=== PATIENT | male | born 1940 | race Caucasian/White ===

== ENCOUNTER 2018-09-19 12:59 | Emergency (ER) | payer MEDICARE, SELFPAY ==
[2018-09-19 13:04] VITALS: BP 192/99; PULSE 103; RESP 15; TEMP 36.4; O2SAT 98; BMI 29.0
--- NOTE | 2018-09-19 13:07 | PC.NURSE ---
Pt awoke with eyelid redness this morning. States only change is recently sleeping with new puppy. Denies vision changes. Denies trauma to eye. Did not try anything at home to reduce redness.
[2018-09-19 13:39] VITALS: BP 154/85; PULSE 89; RESP 19; O2SAT 99
--- NOTE | 2018-09-19 17:10 | ED_ITS ---
HPI - Eye Problem <GLENNA Webber-BC - Last Filed: 09/19/18 17:10> General Chief complaint: Eye Problems Stated complaint: Rt eye swelling and redness Time Seen by Provider: 09/19/18 13:24 Source: patient Mode of arrival: ambulatory Limitations: no limitations History of Present Illness HPI Narrative: Patient is a 70-year-old male who presents with chief complaint of eye lid redness on his right eye that started this morning. He denies any visual defect, blurry vision, double vision or healing of lights. He denies any fevers, nausea, vomiting, diarrhea. Denies any chest pain or shortness of breath. He wonders if it is because he is sleeping with his new puppy. He has been sleeping with his puppy for 3 weeks. He has not taken anything or flight anything to his eyes. He denies foreign body sensation, scratching or trauma to the eye and denies contact use. Related Data Home Medications Medication Instructions Recorded Confirmed Enalapril Maleate (Vasotec) 20 mg PO BID #0 10/14/08 GlyBURIDE (Diabeta / Micronase) 10 mg PO BID #0 10/14/08 HYDROCHLOROTHIAZIDE (Hydrodiuril / 25 mg PO HS #0 10/14/08 Hctz) Metformin Hydrochloride 1,000 mg PO BID #0 10/14/08 (Glucophage) Allergies Allergy/AdvReac Type Severity Reaction Status Date / Time ibuprofen Allergy Unknown Verified 09/19/18 13:04 Review of Systems <GLENNA Webber-BC - Last Filed: 09/19/18 17:10> Review of Systems GENERAL: Denies chills, fatigue, malaise, fever, sweats. HEENT: See HPI RESPIRATORY: Denies dyspnea, cough, wheezing, hemoptysis, sputum. CARDIOVASCULAR: Denies chest pain, palpitations, orthopnea, edema, GASTROINTESTINAL: Denies nausea, vomiting, abdominal pain, diarrhea, constipation, melena. : Denies dysuria, frequency, incontinence, hematuria, urinary retention. MUSCULOSKELETAL: denies weakness, joint pain, or bony pain SKIN: Denies rash, skin lesions, or other NEUROLOGIC: Denies weakness, headache, numbness, change in speech, confusion, seizures, incoordination. PSYCHIATRIC: No concerning psychosocial issues. 12 point review of systems is negative except for those stated above Exam <GLENNA Webber-BC - Last Filed: 09/19/18 17:10> Narrative Exam Narrative: GENERAL: This is a well-nourished, well-developed patient, in no acute distress HEAD: Atraumatic. Normocephalic. No temporal or scalp tenderness. EYES: Pupils equal round and reactive. Extraocular motions intact. No scleral icterus. No injection or drainage. Hordeolum noted right upper eyelid. No extending erythema rash or trauma. ENT: Nose without bleeding, purulent drainage or septal hematoma. Throat without erythema, tonsillar hypertrophy or exudate. Uvula midline. Airway patent. NECK: Trachea midline. No JVD or lymphadenopathy. Supple, nontender, no meningeal signs. CARDIOVASCULAR: Regular rate and rhythm without murmurs, gallops, or rubs. RESPIRATORY: Clear to auscultation. Breath sounds equal bilaterally. No wheezes , rales, or rhonchi. GASTROINTESTINAL: Abdomen soft, non-tender, nondistended. No hepato-splenomegaly , or palpable masses. No guarding. EXTREMITIES: No clubbing, cyanosis, or edema. No joint tenderness, effusion, or edema noted. BACK: Nontender without deformity or crepitance. No flank tenderness. NEURO: AOx3. SKIN: No rash or erythema. Initial Vital Signs Initial Vital Signs: Vital Signs Temperature 97.5 F L 09/19/18 13:04 Pulse Rate 103 H 09/19/18 13:04 Respiratory Rate 15 09/19/18 13:04 Blood Pressure 192/99 H 09/19/18 13:04 Pulse Oximetry 98 09/19/18 13:04 <Paradise Graham DO - Last Filed: 09/22/18 08:47> Initial Vital Signs Initial Vital Signs: Vital Signs Temperature 97.5 F L 09/19/18 13:04 Pulse Rate 103 H 09/19/18 13:04 Respiratory Rate 15 09/19/18 13:04 Blood Pressure 192/99 H 09/19/18 13:04 Pulse Oximetry 98 09/19/18 13:04 Course <GLENNA Webber-BC - Last Filed: 09/19/18 17:10> Vital Signs - 8 hr 09/19/18 13:04 09/19/18 13:39 Temperature 97.5 F L Pulse Rate 103 H 89 Respiratory Rate 15 19 Blood Pressure 192/99 H 154/85 H Pulse Oximetry 98 99 <Paradise Graham DO - Last Filed: 09/22/18 08:47> Vital Signs - 8 hr 09/19/18 13:04 09/19/18 13:39 Temperature 97.5 F L Pulse Rate 103 H 89 Respiratory Rate 15 19 Blood Pressure 192/99 H 154/85 H Pulse Oximetry 98 99 MDM - Eye Problem <Paraidseibis VitaleGLENNA-BC - Last Filed: 09/19/18 17:10> MDM Narrative Medical decision making narrative: Patient presents with chief complaint of eye concern. He has no red flag concerns of visual defect or eye pain. He has no trauma to the eye. Visual acuity was performed and no deficit was noted. Exam indicates hordeolum. I spoke with the patient at length about warm compresses several times a day. I discussed return precautions of spreading erythema, visual defect or any acute concerns. Patient no questions or concerns upon discharge. Discharge Plan Departure Patient Disposition: Home Clinical Impression: Hordeolum Discharge Date/Time: 09/19/18 13:41 Interventions: ED Discharge Assessment Last Done: 09/19/18 13:39 Instructions: DI for Hordeolum Activity Restrictions/Additional Instructions: I would like you to use warm compresses several times a day for your stye. Please monitor for worsening of redness, spreading of redness or any visual defect or eye pain. Please be evaluated if any of these occur. Usually these clear up after a few days of warm compresses several times a day. Come back to the emergency department if needed and please follow up the primary care provider if necessary. Prescriptions: No Action GlyBURIDE (Diabeta / Micronase) 10 mg PO BID Qty: 0 RF: 0 Enalapril Maleate (Vasotec) 20 mg PO BID Qty: 0 RF: 0 Metformin Hydrochloride (Glucophage) 1,000 mg PO BID Qty: 0 RF: 0 HYDROCHLOROTHIAZIDE (Hydrodiuril / Hctz) 25 mg PO HS Qty: 0 RF: 0 Referrals: Dc Najera MD [Primary Care Provider] - <Paradise Graham DO - Last Filed: 09/22/18 08:47> Cosign ED Attending Cosignature Attestation: I was immediately available in the department for consultation. This documentation has been reviewed and I agree with assessment and plan. Supervised by Paradise Graham, DO
== END 2018-09-19 13:41 | disposition home or self-care (01) ==
PROVIDERS: Emergency Provider Nurse Practitioner Family; Family Provider Family Medicine; PCP Family Medicine
DX: H00.011 Hordeolum externum right upper eyelid (principal)
CPT/HCPCS: 99283

== ENCOUNTER 2019-04-08 20:24 | Inpatient (IN) | payer MEDICARE, SELFPAY ==
[2019-04-08 20:25] VITALS: BP 160/91; PULSE 91; RESP 16; TEMP 36.8; O2SAT 97
--- NOTE | 2019-04-08 20:37 | ED.FALL ---
HPI - Fall General Chief Complaint: Fall Stated Complaint: Fall Down 3 Stairs Time Seen by Provider: 04/08/19 20:30 Source: patient Mode of arrival: EMS Limitations: no limitations History of Present Illness HPI Narrative: The patient was headed up steps at home, he was carrying something his left arm. He has been experiencing poor balance, he fell backward on the 1st 2 steps. He twisted sideways come back. He landed against the structure of the steps, hitting his left chest. There was no head injury or neck injury. He has no confusion the, there was no LOC. He has left rib pain. He has no hemoptysis. He has no anterior chest pain. Initially had left shoulder pain. He moves his left arm and shoulder now. He demonstrates no arm pain. Upper extremities are otherwise atraumatic. He has no back or abdominal pain. He has no lower extremity pain. He has been experiencing weakness in his lower extremities, leading to balance issues. His doctor stopped his statins several weeks ago, that seems to be helping. Related Data Home Medications Medication Instructions Recorded Confirmed glyburide 2.5 mg PO DAILY 04/09/19 04/09/19 hydrochlorothiazide 25 mg PO DAILY 04/09/19 04/09/19 lisinopril 20 mg PO DAILY 04/09/19 04/09/19 metformin 500 mg PO BID 04/09/19 04/09/19 metoprolol tartrate 25 mg PO BID 04/09/19 04/09/19 tamsulosin 0.4 mg PO DAILY 04/09/19 04/09/19 Allergies Allergy/AdvReac Type Severity Reaction Status Date / Time ibuprofen Allergy Unknown Verified 09/19/18 13:04 Review of Systems Review of Systems ROS Unobtainable: All systems reviewed & are unremarkable except as noted in HPI and below Constitutional Denies lethargy and Denies weakness ENT Ears, Nose, Mouth, and Throat: Denies vertigo and Denies dizziness Cardiovascular Reports chest pain (Left lateral chest), Denies irregular heart rhythm, Denies lightheadedness, Denies palpitations, Denies dyspnea and Denies orthopnea Respiratory Denies cough, Denies dyspnea and Denies wheezing Gastrointestinal Gastrointestinal: Denies abdominal pain, Denies change in bowel habits, Denies diarrhea, Denies nausea and Denies vomiting Musculoskeletal Reports as per HPI (Left chest wall pain.) and Denies back pain Comments: No extremity injury. Integumentary/Breasts Denies pruritus, Denies erythema, Denies rash and Denies wounds Neurologic Denies confusion, Denies vertigo, Denies dizziness and Denies weakness Psychiatric Denies anxiety and Denies confusion Endocrine Denies palpitations Hematologic/Lymphatic Denies easy bleeding Allergic/Immunologic Denies wheezing Exam Initial Vital Signs Initial Vital Signs: Vital Signs Temperature 98.3 F 04/08/19 20:25 Pulse Rate 91 H 04/08/19 20:25 Respiratory Rate 16 04/08/19 20:25 Blood Pressure 160/91 H 04/08/19 20:25 Pulse Oximetry 97 04/08/19 20:25 Const General: cooperative and well developed Nutritional Appearance: well nourished Orientation: alert, awake, oriented x3 and not confused [facility] Head: normocephalic and atraumatic Mouth: moist mucous membranes Throat: tonsils normal and uvula midline Eyes General: appearance normal, both eyes and all related structures Eyelids: eyelids normal Conjunctivae: conjunctivae normal Sclera: sclerae normal Pupils: PERRL EOM: EOM intact bilaterally Neck Neck: normal visual inspection, trachea midline, No midline deformity and No JVD Chest Chest: No crepitus and localized rib tenderness with anteroposterior compression (Left lateral chest tenderness with hematoma) Resp Effort & Inspection: normal respiratory effort, able to speak in complete sentences, no respiratory distress and no use of accessory muscles Auscultation: clear to auscultation bilaterally, no rales, no rhonchi and no wheezes Cardio Rate: regular rate Rhythm: regular rhythm Heart Sounds: no click, no gallops, no murmurs and no rubs Pulses: normal peripheral pulses GI Inspection: non-distended Palpation: soft, no hepatosplenomegaly, No guarding and No tender Auscultation: normal bowel sounds Back/Spine/Pelvis Cervical Spine: cervical ROM normal Thoracic/Lumbar Spine: thoracic and lumbar spine normal to inspection Skin General: no rashes or lesions noted and No petechiae Neuro General: alert, oriented x3, gait abnormal and no focal motor deficits Speech: speech normal Extrem General: full ROM, no pedal edema and other (No extremity injury.) Psych Appearance: well kempt Mental Status: mental status grossly normal Attitude: cooperative Thought Content: normal and suicidality Judgment: judgment good [facility] Medical History BPH (benign prostatic hyperplasia) (Acute) Hypertension (Acute) Skin cancer (Acute) Diabetes (Acute) Hyperlipidemia (Acute) Surgical History H/O cataract removal with insertion of prosthetic lens (Acute) No pertinent past surgical history (Acute) Social History household members: spouse and children Smoking Status: Former smoker alcohol intake: current Social History household members: spouse and children Smoking Status: Former smoker alcohol intake: current Course Orders Ordered: ED Orders 04/08/19 20:36 XR ribs LT min 3V w CXR1V Stat 04/08/19 21:36 CT chest wo con Stat 04/08/19 23:40 EKG-12 Lead Stat 04/08/19 23:55 Basic Metabolic Panel Stat Complete Blood Count AUTO DIFF Stat Partial Thromboplastin Time Stat Prothrombin Time INR Stat 04/09/19 08:00 Consult to Physician Routine XR chest 1V Routine Acetaminophen (Tylenol) 1,000 mg PO Q6HR PRN PRN Reason: As Needed for Fever/Mild Pain Gabapentin (Neurontin) 300 mg PO Q6H DMITRIY Last Admin: 04/09/19 01:14 Dose: 300 mg Hydromorphone HCl (Dilaudid) 1 mg IV Q3H PRN PRN Reason: Pain, Severe (7-10) Last Admin: 04/09/19 04:13 Dose: 1 mg Sodium Chloride (Normal Saline 0.9%) 1,000 mls @ 125 mls/hr IV CONT DMITRIY Last Admin: 04/09/19 01:14 Dose: 125 mls/hr Methocarbamol (Robaxin) 750 mg PO QID PRN PRN Reason: Muscle Spasm Discontinued Medications Hydromorphone HCl (Dilaudid) 1 mg IV NOW ONE Stop: 04/08/19 21:37 Last Admin: 04/08/19 21:54 Dose: 1 mg Hydromorphone HCl (Dilaudid) 1 mg IV NOW ONE Stop: 04/08/19 23:04 Last Admin: 04/08/19 23:17 Dose: 1 mg Hydromorphone HCl (Dilaudid) 1 mg IV Q3H PRN PRN Reason: Pain, Severe (7-10) Vital Signs - 8 hr 04/08/19 22:36 04/08/19 23:39 04/09/19 00:30 Temperature 97.3 F L Pulse Rate 95 H 99 H Respiratory Rate 18 18 Blood Pressure 141/84 H Blood Pressure [Right Arm] 147/75 H Pulse Oximetry 97 98 97 MDM - Fall Lab Data Result diagrams: 04/08/19 23:55 04/08/19 23:55 Lab Results 04/08/19 04/08/19 04/08/19 Range/Units 23:55 23:55 23:55 WBC 12.6 H (4.5-11.0) X10^3/uL RBC 3.77 L (4.5-5.9) X10^6/uL Hgb 12.7 L (13.5-17.5) g/dL Hct 37.0 L (41-53) % MCV 98.2 (80-100) fL MCH 33.5 (26-34) PG MCHC 34.2 (30-36) % RDW 12.6 (11.6-14.8) % Plt Count 160 (150-400) X10^3/uL Neut % (Auto) 81.2 H (50-75) % Lymph % (Auto) 9.4 L (25-40) % Moore % (Auto) 8.6 (3-14) % Eos % (Auto) 0.5 L (2-4) % Baso % (Auto) 0.3 (0-2) % Neut # (Auto) 61054 H (7712-7927) /uL Lymph # (Auto) 1200 (9681-2962) /uL Moore # (Auto) 1100 H (0-900) /uL Eos # (Auto) 100 (0-450) /uL Baso # (Auto) 0 (0-100) /uL PT 11.9 (10.1-12.7) SECONDS INR 1.0 (0.9-1.3) APTT 27 (26.4-36.2) SECONDS Sodium 136 L (137-145) mmol/L Potassium 4.7 (3.4-5.1) mmol/L Chloride 98 (98-107) mmol/L Carbon Dioxide 28 (22-32) mmol/L BUN 23 H (9-20) mg/dL Creatinine 0.90 (0.66-1.25) mg/dL Estimated GFR > 60.0 (>60) mL/min BUN/Creatinine Ratio 25.6 H (6-22) Glucose 183 H (80-110) mg/dL Calcium 9.7 (8.4-10.2) mg/dL Imaging Data Chest x-ray: Radiologist's impression: [address] [address] XRay Report Signed Patient: Babak Handley HMR#: [id number] : 1940Acct:[id number] Age/Sex: 78 / MDate of Service: 04/08/19 Loc: ED Accession Number: [id number] Procedure: XR ribs LT min 3V w CXR1V Ordering Provider: Liu Saleem MD PROCEDURE: XR RIBS LT MIN 3V W CXR1V INDICATIONS: Fall. Left rib pain TECHNIQUE: 3 views of the left ribs were acquired, along with a single view chest. COMPARISON: None. FINDINGS: Surgical changes and devices: None. Bones and chest wall: There are mild to moderately displaced fractures of the left 7th through 10th ribs laterally. No suspicious bony lesions. Overlying soft tissues appear unremarkable. Lungs and pleura: There is a suspected small left apical pneumothorax. A small left pleural effusion is demonstrated with associated linear basilar opacities compatible with atelectasis. Right lung is clear. Mediastinum: Mediastinal contours appear normal. Heart size is within normal limits. IMPRESSION: 1. Fractures of the left 7th through 10th ribs. 2. Suspected small left apical pneumothorax. Chest CT is pending. 3. Small left pleural effusion with probable atelectasis in the left base. Findings discussed with Dr. Saleem on 04/08/19 at 9:45 PM. Dictated by: Griffin Franz M.D. on 04/08/2019 at 21:43 Approved by: Griffin Franz M.D. on 04/08/2019 at 21:46 CT scan - chest: Radiologist's impression: Left 7th, 8th, 9th and posterior 10th and 11th rib fractures. The 10th rib fracture is segmental. Crepitus noted on chest CT adjacent to the fracture site. Trace pneumothorax adjacent to the fracture sites. Also noted on the CT is cholelithiasis without inflammatory changes. ECG Data Attestation: I personally reviewed and interpreted this ECG as follows: (Normal sinus rhythm rate 89 beats per minute. Normal intervals. No ectopy. No acute ST wave changes. Normal study.) MDM Narrative Medical decision making narrative: The patient suffered significant injury to the left chest, falling down steps. He has a hematoma at the site, fracture suspected confirmed by x-ray. Multiple rib fractures were further evaluated by chest CT. There is a very small pneumothorax adjacent to the fracture sites. The lungs otherwise intact. He has no toxic, but he does have significant pain. He has required several doses of pain meds while here in the ER. I discussed his ongoing care with the on-call surgeon, . The patient will be admitted to telemetry. Analgesics have been ordered. A repeat x-ray will be done in the morning. Critical Care Time Critical Care Time: Yes Total Critical Care Time: 45 Attestation: Time included initial assessment, review of x-ray then CT, lab review and consultation with surgery. Admission was arranged. Discharge Plan Departure Patient Disposition: Admitted As Inpatient Clinical Impression: Pneumothorax on left Multiple fractures of ribs of left side Qualifiers: Encounter type: initial encounter Fracture type: closed Qualified Code(s): S22.42XA - Multiple fractures of ribs, left side, initial encounter for closed fracture Discharge Date/Time: 04/09/19 00:14 Interventions: ED Discharge Assessment Last Done: 04/09/19 00:14 Admit Date/Time: 04/08/19 23:45 Admit Provider: Gil Alexis
--- NOTE | 2019-04-08 21:36 | DI.CT.S_ITS ---
PROCEDURE: CT CHEST WO CON INDICATIONS: multiple displaced rib fractures TECHNIQUE: Noncontrast 5 mm thick sections acquired from the pulmonary apices to the posterior costophrenic angles. 7 mm thick coronal and sagittal MIP reformats were then acquired. For radiation dose reduction, the following was used: automated exposure control, adjustment of mA and/or kV according patient size. COMPARISON: None. FINDINGS: Image quality: Excellent. Lungs and pleura: Small left pleural effusion measuring higher than fluid attenuation compatible with small hemothorax. Very small left pneumothorax. Minimal compressive atelectasis adjacent to the hemothorax. Otherwise, no acute air space opacities. The right lung is clear. Central and peripheral airways are patent and normal in caliber. Mediastinum: Heart size is normal. Scattered atherosclerotic calcifications of the coronary arteries are noted. No pericardial effusion. No mediastinal adenopathy by size criteria. Thoracic aorta and central pulmonary arteries are normal in size. Esophagus is normal in caliber. Small hiatal hernia. Bones and chest wall: No suspicious bony lesions. No acute vertebral body compression fractures. There are acute, mildly displaced fractures involving the posterior lateral left seventh, eighth, and ninth ribs with posterior fractures of the 10th and 11th ribs. There is segmental fracture of the 10th rib. There is associated subcutaneous emphysema of the posterior lateral left chest wall overlying the rib fractures. No axillary or supraclavicular adenopathy by size criteria. Thyroid gland is unremarkable. Abdomen: Small density in the dependent portion of the gallbladder compatible with cholelithiasis. No CT evidence for acute cholecystitis. Moderate amount of stool in the visualized colon. Visualized upper abdominal solid organs and bowel loops are otherwise unremarkable in the absence of contrast. IMPRESSION: 1. Multiple acute left-sided rib fractures as detailed above involving the seventh through 11th ribs with trace left pneumothorax and small left hemothorax. There is associated left chest wall subcutaneous emphysema. 2. Cholelithiasis without CT evidence for acute cholecystitis. Findings are concordant with preliminary radiology report. Dictated by: Jae Lopez M.D. on 04/09/2019 at 8:19 Approved by: Jae Lopez M.D. on 04/09/2019 at 8:31
[2019-04-08] MEDS: HYDROMORPHONE 1 MG INJ IV ×2 (21:54→23:17)
[2019-04-08 22:36] VITALS: BP 147/75; PULSE 95; RESP 18; O2SAT 97
[2019-04-08 23:39] VITALS: O2SAT 98
[2019-04-09] LABS: Add Manual Diff / Slide Review NO; Basophils Absolute Auto 0 /uL (0-100); Basophils Percent Auto 0.3 % (0-2); Eosinophils Absolute Auto 100 /uL (0-450); Eosinophils Percent Auto 0.5 % (2-4); Hemoglobin 12.7 g/dL (13.5-17.5); Lymphocytes Absolute Auto 1200 /uL (1100-4500); Lymphocytes Percent Auto 9.4 % (25-40); Mean Corpuscular HGB Conc 34.2 % (30-36); Mean Corpuscular Hemoglobin 33.5 PG (26-34); Mean Corpuscular Volume 98.2 fL (80-100); Monocytes Absolute Auto 1100 /uL (0-900); Monocytes Percent Auto 8.6 % (3-14); Neutrophils Absolute Auto 10300 /uL (1500-7000); Neutrophils Percent Auto 81.2 % (50-75); Platelet Count 160 X10^3/uL (150-400); Red Blood Cell Count 3.77 X10^6/uL (4.5-5.9); Red Cell Distribution Width 12.6 % (11.6-14.8); White Blood Cell Count 12.6 X10^3/uL (4.5-11.0)
--- NOTE | 2019-04-09 | DI.RAD.S_ITS ---
PROCEDURE: XR CHEST 1V INDICATIONS: Eval for Left pneumothorax interval change TECHNIQUE: One view of the chest was acquired. COMPARISON: CT dated 04/08/19. FINDINGS: Surgical changes and devices: None. Lungs and pleura: The previously noted trace left pneumothorax is not visualized radiographically. Small left pleural effusion. Right lung remains clear. Mediastinum: Mediastinal contours appear normal. Heart size is normal. Bones and chest wall: Diffuse osteopenia. The known left rib fractures are not well-visualized radiographically and are better evaluated on recent comparison CT. No suspicious bony lesions. Overlying soft tissues appear unremarkable. No substantial subcutaneous emphysema identified in the left chest wall. IMPRESSION: 1. No radiographically evident pneumothorax. 2. Very small left pleural effusion. 3. Multiple acute left-sided rib fractures involving the 7th through 11th ribs are not well visualized radiographically. These are better characterized on comparison CT dated 04/08/19. Dictated by: Jae Lopez M.D. on 04/09/2019 at 9:17 Approved by: Jae Lopez M.D. on 04/09/2019 at 9:21
[2019-04-09 00:11] LABS: Prothrombin Time 11.9 SECONDS (10.1-12.7)
[2019-04-09 00:13] LABS: PTT Partial Thromboplastin Tim 27 SECONDS (26.4-36.2)
[2019-04-09 00:15] LABS: BUN Creatinine Ratio 25.6 (6-22); Blood Urea Nitrogen 23 mg/dL (9-20); Calcium 9.7 mg/dL (8.4-10.2); Carbon Dioxide 28 mmol/L (22-32); Chloride 98 mmol/L (98-107); Estimated Glomerular Filt Rate > 60.0 mL/min (>60); Glucose 183 mg/dL (80-110); HEMOLYSIS < 15 (0-50); Potassium 4.7 mmol/L (3.4-5.1); Sodium 136 mmol/L (137-145)
[2019-04-09 00:30] VITALS: BP 141/84; PULSE 99; RESP 18; TEMP 36.3; O2SAT 97
[2019-04-09 00:33] VITALS: BMI 28.9
[2019-04-09] MEDS: SODIUM CHLORIDE 0.9% 1,000 ML 125 ML IV (01:14)
[2019-04-09] MEDS: GABAPENTIN 300 MG CAPSULE PO ×4 (01:14→22:39)
[2019-04-09] MEDS: HYDROMORPHONE 1 MG INJ IV (04:13)
[2019-04-09 05:58] VITALS: BP 139/71; PULSE 96; RESP 16; TEMP 36.6; O2SAT 100
--- NOTE | 2019-04-09 07:06 | PM.HP.1 ---
History of Present Illness Date Patient Seen: 04/09/19 Time Patient Seen: 05:00 Chief complaint: Fall Down 3 Stairs Narrative: 78 yo man with well managed T2DM, HTN, and 20yrs remote 40 pack/yr smoker with slowly resolving statin related LE weakness and myalgias. Yesterday ~5pm fell backwards while off 2nd or 3rd step climbing up stairs. Had lost director of math on railing. Landed on L lateral chest with immediate pain in area. struck carpeted floor. Did not strike head, no LOC, remembers events clearly, no subsequent head or neck pain. Taken by EMS to ED where in considerable pain - worsened with deep breaths. improved with splinting. On chest CT found to have 5 total segmental rib fractures (7-11 L) multiple displaced. Miniscule ptx. Small amount of dependent hemothorax in posterior sulcus less than 3cm width. He was started on multimodal therapy with APAP, gabapentin, methocarbamol, and hydromorphone. This morning pain much improved feels can now cough effectively, insp 2L on IS, now off O2. Denies other areas of pain beyond L chest, no paresthesias in L hand/arm Patient History Medical History BPH (benign prostatic hyperplasia) (Acute) Hypertension (Acute) Skin cancer (Acute) Diabetes (Acute) Hyperlipidemia (Acute) Surgical History H/O cataract removal with insertion of prosthetic lens (Acute) No pertinent past surgical history (Acute) Social History household members: spouse and children Smoking Status: Former smoker alcohol intake: current Family & Social History Social History: household members spouse,children Prior Living Arrangements House Safety & Behavioral: Feels Safe in Current Yes Environment Suicidal Ideation Description None Suicide Plan Description No Plan Tobacco & Substance use: Smoking Status Former smoker alcohol intake current alcohol intake frequency 0-2 drinks per day Substance Use Type does not use Meds Home Medications Medication Instructions Recorded Confirmed Type Aspirin Low Dose 04/09/19 History glyburide 2.5 mg PO DAILY 04/09/19 04/09/19 History hydrochlorothiazide 25 mg PO DAILY 04/09/19 04/09/19 History lisinopril 20 mg PO DAILY 04/09/19 04/09/19 History metformin 500 mg PO BID 04/09/19 04/09/19 History metoprolol tartrate 25 mg PO BID 04/09/19 04/09/19 History tamsulosin 0.4 mg PO DAILY 04/09/19 04/09/19 History Allergies Allergy/AdvReac Type Severity Reaction Status Date / Time ibuprofen Allergy Unknown Verified 09/19/18 13:04 Review of Systems Constitutional Constitutional: Denies fever(s) Eyes Eyes: Denies bulging eyes ENT Ears, Nose, Mouth, and Throat: No lip swelling Cardiovascular Cardiovascular: Denies generalize swelling Respiratory Respiratory: Denies stridor Gastrointestinal Gastrointestinal: Denies coffee ground emesis Musculoskeletal Musculoskeletal: Denies loss of height Integumentary/Breasts Skin/Breast: Denies wounds Neurologic Neurologic: Denies abnormal speech and Denies confusion Psychiatric Psychiatric: Denies confusion Endocrine Endocrine: Denies deepening of the voice Hematologic/Lymphatic Hematologic/Lymphatic: Denies lymphadenopathy Allergic/Immunologic Allergic/Immunologic: Denies lip swelling Exam Vital Signs (past 8 hours): - 04/08/19 23:39 04/09/19 00:30 04/09/19 05:58 Temperature 97.3 F L 97.9 F Pulse Rate 99 H 96 H Respiratory Rate 18 16 Blood Pressure 141/84 H 139/71 Pulse Oximetry 98 97 100 Oxygen Delivery Method Room Air Narrative Exam Narrative: well oreiented, good cognition head atraumatic, no scalp injury, no head tenderness TMJ non tender, good occlusion, no blood in OC, nares No cervical LAD, nontender, no midline c spine tenderness. full ROM with flex, ext, rotation at neck w/o pain no clavicle tenderness. L lateral chest wall tender with ecchymosis, remainder of chest without tenderness IS 2L, effective cough. LCTAB and equal bilaterally RRR no MGR, nml S1 S2 Abd with diastatis recti, nondisteneded, nml BS, dull to percussion, soft nontender, no masses Pelvis stable to rock No T/L/S spineous process tenderness Full MSK palpation of fingers, hands, wrists, forarms, elbows, arms, shoulders w.o tenderness, No tenderness or pain with ROM of toes, feet, ankle, legs, knees, thighs, hips Objective Labs Result Diagrams: 04/08/19 23:55 04/08/19 23:55 Labs: Laboratory Results - last 24 hr 04/08/19 04/08/19 04/08/19 23:55 23:55 23:55 WBC 12.6 H RBC 3.77 L Hgb 12.7 L Hct 37.0 L MCV 98.2 MCH 33.5 MCHC 34.2 RDW 12.6 Plt Count 160 Neut % (Auto) 81.2 H Lymph % (Auto) 9.4 L [place] % (Auto) 8.6 Eos % (Auto) 0.5 L Baso % (Auto) 0.3 Neut # (Auto) 00206 H Lymph # (Auto) 1200 [place] # (Auto) 1100 H Eos # (Auto) 100 Baso # (Auto) 0 PT 11.9 INR 1.0 APTT 27 Sodium 136 L Potassium 4.7 Chloride 98 Carbon Dioxide 28 BUN 23 H Creatinine 0.90 Estimated GFR > 60.0 BUN/Creatinine Ratio 25.6 H Glucose 183 H Calcium 9.7 Assessment & Plan Assessment & Plan narrative: 78 yo man Post truama day 1 admitted with 5 segmental rib fractures on L with small hemo/pneumothorax 1) Rib fractures x5 - multimodal pain control with scheduled gabapentin/methocarbamol/APAP/celecoxib, PRN opiates - nebs to encourage secretion mobilization - MD aware sating well - IS - mobilize chair most of day 2) small pneumothorax, hemothorax on L - pneumo not detected by CXR, hemothx under 3cm on CT - currently chest tube not indicated - Repeat CXR tomorrow AM, CXR if becomes increasingly symptomatic 3) s/p fall at home - PT to eval today, for gait and strenght training, statin already d/noam 4)DM, HTN - off oral agents on ISS in case of further imaging, basal insulin if consistently above 180 - Hm BB restared with spit dose short acting metoprolol - holding other antihypertensives FEN - LR 50, E ok, diabetic diet Proph - PEG, SQ heparin
--- NOTE | 2019-04-09 07:18 | P.HP_ITS ---
History of Present Illness Date Patient Seen: 04/09/19 Time Patient Seen: 05:00 Chief complaint: Fall Down 3 Stairs Narrative: 78 yo man with well managed T2DM, HTN, and 20yrs remote 40 pack/yr smoker with slowly resolving statin related LE weakness and myalgias. Yesterday ~5pm fell backwards while off 2nd or 3rd step climbing up stairs. Had lost public relations specialist on railing. Landed on L lateral chest with immediate pain in area. struck carpeted floor. Did not strike head, no LOC, remembers events clearly, no subsequent head or neck pain. Taken by EMS to ED where in considerable pain - worsened with deep breaths. improved with splinting. On chest CT found to have 5 total segmental rib fractu res (7-11 L) multiple displaced. Miniscule ptx. Small amount of dependent hemothorax in posterior sulcus less than 3cm width. He was started on multimodal therapy with APAP, gabapentin, methocarbamol, and hydromorphone. This morning pain much improved feels can now cough effectively, insp 2L on IS, now off O2. Denies other areas of pain beyond L chest, no paresthesias in L hand/arm Patient History Medical History BPH (benign prostatic hyperplasia) (Acute) Hypertension (Acute) Skin cancer (Acute) Diabetes (Acute) Hyperlipidemia (Acute) Surgical History H/O cataract removal with insertion of prosthetic lens (Acute) No pertinent past surgical history (Acute) Social History household members: spouse and children Smoking Status: Former smoker alcohol intake: current Family & Social History Social History: household members spouse,children Prior Living Arrangements House Safety & Behavioral: Feels Safe in Current Yes Environment Suicidal Ideation Description None Suicide Plan Description No Plan Tobacco & Substance use: Smoking Status Former smoker alcohol intake current alcohol intake frequency 0-2 drinks per day Substance Use Type does not use Meds Home Medications Medication Instructions Recorded Confirmed Type Aspirin Low Dose 04/09/19 History glyburide 2.5 mg PO DAILY 04/09/19 04/09/19 History hydrochlorothiazide 25 mg PO DAILY 04/09/19 04/09/19 History lisinopril 20 mg PO DAILY 04/09/19 04/09/19 History metformin 500 mg PO BID 04/09/19 04/09/19 History metoprolol tartrate 25 mg PO BID 04/09/19 04/09/19 History tamsulosin 0.4 mg PO DAILY 04/09/19 04/09/19 History Allergies Allergy/AdvReac Type Severity Reaction Status Date / Time ibuprofen Allergy Unknown Verified 09/19/18 13:04 Review of Systems Constitutional Constitutional: Denies fever(s) Eyes Eyes: Denies bulging eyes ENT Ears, Nose, Mouth, and Throat: No lip swelling Cardiovascular Cardiovascular: Denies generalize swelling Respiratory Respiratory: Denies stridor Gastrointestinal Gastrointestinal: Denies coffee ground emesis Musculoskeletal Musculoskeletal: Denies loss of height Integumentary/Breasts Skin/Breast: Denies wounds Neurologic Neurologic: Denies abnormal speech and Denies confusion Psychiatric Psychiatric: Denies confusion Endocrine Endocrine: Denies deepening of the voice Hematologic/Lymphatic Hematologic/Lymphatic: Denies lymphadenopathy Allergic/Immunologic Allergic/Immunologic: Denies lip swelling Exam Vital Signs (past 8 hours): - 04/08/19 23:39 04/09/19 00:30 04/09/19 05:58 Temperature 97.3 F L 97.9 F Pulse Rate 99 H 96 H Respiratory Rate 18 16 Blood Pressure 141/84 H 139/71 Pulse Oximetry 98 97 100 Oxygen Delivery Method Room Air Narrative Exam Narrative: well oreiented, good cognition head atraumatic, no scalp injury, no head tenderness TMJ non tender, good occlusion, no blood in OC, nares No cervical LAD, nontender, no midline c spine tenderness. full ROM with flex, ext, rotation at neck w/o pain no clavicle tenderness. L lateral chest wall tender with ecchymosis, remainder of chest without tenderness IS 2L, effective cough. LCTAB and equal bilaterally RRR no MGR, nml S1 S2 Abd with diastatis recti, nondisteneded, nml BS, dull to percussion, soft nontender, no masses Pelvis stable to rock No T/L/S spineous process tenderness Full MSK palpation of fingers, hands, wrists, forarms, elbows, arms, shoulders w.o tenderness, No tenderness or pain with ROM of toes, feet, ankle, legs, knees, thighs, hips Objective Labs Result Diagrams: 04/08/19 23:55 04/08/19 23:55 Labs: Laboratory Results - last 24 hr 04/08/19 04/08/19 04/08/19 23:55 23:55 23:55 WBC 12.6 H RBC 3.77 L Hgb 12.7 L Hct 37.0 L MCV 98.2 MCH 33.5 MCHC 34.2 RDW 12.6 Plt Count 160 Neut % (Auto) 81.2 H Lymph % (Auto) 9.4 L [place] % (Auto) 8.6 Eos % (Auto) 0.5 L Baso % (Auto) 0.3 Neut # (Auto) 47248 H Lymph # (Auto) 1200 [place] # (Auto) 1100 H Eos # (Auto) 100 Baso # (Auto) 0 PT 11.9 INR 1.0 APTT 27 Sodium 136 L Potassium 4.7 Chloride 98 Carbon Dioxide 28 BUN 23 H Creatinine 0.90 Estimated GFR > 60.0 BUN/Creatinine Ratio 25.6 H Glucose 183 H Calcium 9.7 Assessment & Plan Assessment & Plan narrative: 78 yo man Post truama day 1 admitted with 5 segmental rib fractures on L with small hemo/pneumothorax 1) Rib fractures x5 - multimodal pain control with scheduled analia apentin/methocarbamol/APAP/celecoxib, PRN opiates - nebs to encourage secretion mobilization - MD aware sating well - IS - mobilize chair most of day 2) small pneumothorax, hemothorax on L - pneumo not detected by CXR, hemothx under 3cm on CT - currently chest tube not indicated - Repeat CXR tomorrow AM, CXR if becomes increasingly symptomatic 3) s/p fall at home - PT to eval today, for gait and strenght training, statin already d/noam 4)DM, HTN - off oral agents on ISS in case of further imaging, basal insulin if consistently above 180 - Hm BB restared with spit dose short acting metoprolol - holding other antihypertensives FEN - LR 50, E ok, diabetic diet Proph - PEG, SQ heparin
[2019-04-09 08:00] VITALS: BP 145/75; PULSE 96; RESP 16; TEMP 36.4; O2SAT 97
[2019-04-09] MEDS: LACTATED RINGERS 1,000 ML 50 ML IV (09:53)
[2019-04-09] MEDS: CELECOXIB 200 MG CAPSULE PO ×2 (10:03→20:56)
[2019-04-09] MEDS: ASPIRIN EC 81 MG TABLET PO (10:03)
[2019-04-09] MEDS: METHOCARBAMOL 500 MG TABLET PO ×4 (10:04→20:56)
[2019-04-09] MEDS: POLYETHYLENE GLYCOL 3350 17 GM POWD.PACK PO ×2 (10:04→20:56)
[2019-04-09] MEDS: TAMSULOSIN 0.4 MG CAPSULE PO (10:04)
[2019-04-09] MEDS: OXYCODONE IR 5 MG TABLET PO (10:13)
[2019-04-09] MEDS: INSULIN ASPART 100 UNIT/ML INSULN PEN SUBCUT ×4 (10:14→20:52)
--- NOTE | 2019-04-09 11:17 | PT.IIE ---
Surgical History (Last Reviewed 04/09/19 @ 05:35 by Liu Saleem MD) H/O cataract removal with insertion of prosthetic lens (Acute) No pertinent past surgical history (Acute) Medical History (Last Reviewed 04/09/19 @ 05:35 by Liu Saleem MD) BPH (benign prostatic hyperplasia) (Acute) Hypertension (Acute) Skin cancer (Acute) Diabetes (Acute) Hyperlipidemia (Acute) Physical Therapy Inpatient Evaluation/Re-Eval M1 PT/OT-IP Prior Functional Status Start: 04/09/19 12:07 Freq: NEEDED Status: Active Protocol: Document 04/09/19 11:17 AB (Rec: 04/09/19 12:22 AB [id number]) Medical Review Prior Functional Status Medical History Reviewed Yes Communication able to make needs known Mobility and Gait pt stated that he is modified independent with all mobilities and ambulation without AD but occasionally uses a SPC/walking stick. Social History Household Members spouse children Living Arrangements House Number of Floors (Floors) Two Floors Number of Stairs To Enter/Railing? pt stays on main level of the house has 2 steps to enter with L rail ascending from the front of the house has 2 steps L rail +15 steps L rail to enter the house from the garage Home Environment High Toilet Walk in Shower Home Equipment Straight Cane Grab Bars In Shower Employment Status Copier Operator Employed Additional Social History Comment pt works at [employer] M2 PT-IP Current Condition Start: 04/09/19 12:07 Freq: NEEDED Status: Active Protocol: Document 04/09/19 11:17 AB (Rec: 04/09/19 12:22 AB [id number]) Physical Therapy Current Condition Current Condition Evaluation Date 04/09/19 Treatment Diagnosis s/p fall: L rib 7-10 fx; pneumothorax; difficulty in walking Onset Date 04/08/19 Precautions Other Precautions falls M3 PT-IP Subjective Start: 04/09/19 12:07 Freq: NEEDED Status: Active Protocol: Document 04/09/19 11:17 AB (Rec: 04/09/19 12:22 AB [id number]) Subjective Physical Therapy Visit Type Type Initial Evaluation Visit Start Time 11:17 Visit Stop Time 11:56 Total Visit Minutes 39 Number of BINDING CEMENTER FRENCH CORD Visits 0 Physical Therapy Visit Comments Patient Comments pt agreeable to do PT Therapy Pain Assessment Pain When Pain Assessed During Mobility Pain Present Pain Present Pain Reported Location Left Upper Back Intensity 10 Scale Used Numeric (1 - 10) Pain Management Techniques Timing of Activity with Medications M4 PT-IP Mobility and Gait Start: 04/09/19 12:07 Freq: NEEDED Status: Active Protocol: Document 04/09/19 11:17 AB (Rec: 04/09/19 12:22 AB [id number]) PT-Bed Mobility Assessment Supine to Sit Supine to Sit Standby Assistance Sit to Supine Sit to Supine Standby Assistance PT-Transfer Assessment Sit to and From Stand Sit to and from Stand Standby Assistance Equipment Transfer Assistive Device Gait Belt Front Wheeled Walker Orthotic/Prosthetic Devices or Brace: No Transfers Transfer Destination Bed Transfer Ability Level of Assist Contact Guard Assistance Use of Upper Extremities Comments Mobility Comments pt required cues to complete all tasks. pt sitting on chair and agreed to do PT. completed transfer using FWW to the bed CGA and completed sit to supine SBA. completed supine to sit with difficulty and c/o increase L side pain but able to complete with SBA and cues for techniques. pt requested to be able to brush his teeth. ambulated towards the sink using FWW SBA to CGA and was able to maintain standing against the counter SBA while completing ADL. Gait Assessment Gait Gait Assistance Required: Standby Assistance Contact Guard Assist Distance (Feet) 100 Able to Maintain Weight Bearing Status Yes During Gait Assistive Devices Assistive Device Gait Belt Front Wheeled Walker Orthotic/Prosthetic Devices or Brace: No Gait Deviations General Gait Pattern Antalgic Decreased Stride Length Decreased Feet Clearance Flexed Trunk Factors Limiting Gait Function Factors Limiting Gait Function Decreased Activity Tolerance Decreased Strength Limited Range of Motion Pain Poor Balance Poor Safety Awareness Comments Gait Comments pt presents with antalgic gait with stooped posture. Recommending use of FWW at this time for safety. pt agreed. Stair Climbing Assessment Comments Stair Climbing Comments pt refused to do stairs today; stated that he'll do it tomorrow. PT-Balance Assessment Sitting Balance and Reactions Static Sitting Balance Ability Good Dynamic Sitting Balance Ability Good Standing Balance and Reactions Static Standing Balance Ability Fair Dynamic Standing Balance Ability Fair Device Used FWW M5 PT-IP Objective Assessments Start: 04/09/19 12:07 Freq: NEEDED Status: Active Protocol: Document 04/09/19 11:17 AB (Rec: 04/09/19 12:22 AB [id number]) Orientation Orientation/Cognition Level of Alertness Alert Orientation Name Place Situation Gross Range of Motion Lower Extremity ROM Assessment Within Functional Limits Strength Lower Extremity Strength Assessment Bilaterally Impaired Hip 4-/5 Knee 4-/5 Coordination Assessment Gross Coordination Gross Coordination WNL Sensation Assessment Sensation Gross Sensation WNL Muscle Tone Muscle Tone WNL Yes M6 PT-IP Treatment Start: 04/09/19 12:07 Freq: NEEDED Status: Active Protocol: Document 04/09/19 11:17 AB (Rec: 04/09/19 12:22 AB [id number]) Physical Therapy Treatment Education Education Provided Safety M7 PT-IP Assessment and Plan Start: 04/09/19 12:07 Freq: NEEDED Status: Active Protocol: Document 04/09/19 11:17 AB (Rec: 04/09/19 12:22 AB [id number]) PT Summary Assessment and Plan Potential Rehabilitation Potential Good Status of Condition at Evaluation Stable Summary Impairments Pain ROM Strength Balance Coordination Sensation Tone Cognition Bed Mobility Transfers Gait Activity Tolerance Assessment Summary pt requiring SBA to CGA with mobility. pt plans to go home with spouse to assist him. also has a daughter that lives next to him that can also assist pt. pt presents with unsteady gait and decrease activity tolerance and will require outpt PT to improve strength , standing balance/ tolerance to increase function and prevent falls. Goals Bed Mobility Goal Independent Transfer Goal Independent Front Wheeled Walker Gait Goal Independent Front Wheel Walker Gait Distance 200 Other Goals up/down 2 steps L rail ascending SBA Days to Meet Goals 5 Frequency of Treatment Frequency Of Treatment Once a Day Treatment Plan Physical Therapy Treatment Plan Bed Mobility Training Transfer Training Gait Training Therapeutic Exercise Balance Retraining Discharge Planning Hot or Cold Pack Neuromuscular Re-ed Coordination Retraining Manual Therapy Other Recommendations and Next Treatment ambulation, stair climbing Focus Recommendations To Nursing Amount of Assist Needed 1 Person Assist Discharge Recommendations PT Discharge Recommendations Home with Assistance Outpatient PT Equipment Needed for Home Before FWW: pt will borrow one Discharge
[2019-04-09] MEDS: METOPROLOL IR 25 MG TABLET 12.5 MG PO ×2 (12:08→17:28)
[2019-04-09] MEDS: HEPARIN 5,000 UNIT/ML VIAL 5000 UNIT SUBCUT ×2 (14:27→22:39)
--- NOTE | 2019-04-09 15:29 | CM.SWNOTE ---
DCP: SECURITY OFFICER SUPERVISOR reviewed chart and completed initial d/c plan assessment PCP: Dr. Dc Najera Payor: Medicare SECURITY OFFICER SUPERVISOR met with pt and his dtr to discuss discharge needs and plan. Physical therapy has recommended ongoing physical therapy through Home Health. Pt is agreeable to this plan, and declines the need for any additional disciplines. He declines the need for any additional DME, and dtr obtained a walker for him earlier today. He has notified his employer of his fall and hospitalization, and anticipates being off of work for the next 2-weeks. He expresses having ample support for caregiving through his and dtr. Dtr lives next door to him, and is readily available to assist. This SECURITY OFFICER SUPERVISOR did not initiate calling Home Health at this time. Face to Face not yet signed. No other discharge needs are identified at this time. Discharge Planning/Care Management CM Discharge Assessment Start: 04/09/19 15:15 Freq: Status: Active Protocol: Document 04/09/19 15:15 DPL (Rec: 04/09/19 15:28 DPL [id number]) Discharge Planning Assessment Assigned Head Nurse ISABEL Ellis DPOA/Assigned Designee Name No Advance Directives? No History Provided By Patient Expected Length of Stay 5 Has Patient been admitted in last 30 No days? Prior Living Arrangements House Household Members spouse children Type of transporation used prior to Drives own vehicle admit Independent with ADL's Yes Is patient alert and oriented? Yes Comment Pt is currently needing assistance with safety and mobility. He was able to begin working with PT today to begin ambulating with the use of a front wheeled walker, otherwise, he feels that he will be independent in all his other ADL's. He has both his and dtr to assist with any care needs that he does have when d/c'd home. Caregiver for Another No Comment N/A DME Already Rented / Owned Cane Comment Dtr was able to obtain a walker from a local community agency today. He declines the need for any additional DME needs for d/c. Patient/Family Preference Home with Home Health Comment physical therapist is recommending continued PT in the home once pt is discharged . Pt currently requires SBA with mobility. Due to extensive rib fractures and pain, he has an unsteady gait, and decreased activity tolerance. Goals for community based PT will focus on improving strength, standing/ balance tolerance , and to increase function/prevent falls. Comment Pt has not had Home Health before. SECURITY OFFICER SUPERVISOR explained that Medicare pays for Home Health, and that care management will continue to assist him with coordination of their services prior to his discharge home. He declines the need for any other discipline from HH. Barriers to Discharge Yes Comment Set-up Home Health. Discharge Plan Home Community Services Physical Therapy Transportation Arrangement Family will drive patient home at time of discharge. Referrals Initiated Home Health Additional Comment Ongoing materials planner/production planner will f/u with having the face to face signed, contacting Home Health, and will coordinate with family re: start of care plan. If patient plan is home with home health No : Has signed face to face form been completed? Medicare Choice List Provided No SNF/HH Preference Not identified at this time. Has Agency SNF been contacted No
[2019-04-09 15:32] VITALS: BP 135/72; PULSE 95; RESP 18; TEMP 36.3; O2SAT 96
[2019-04-09 19:34] VITALS: BP 134/75; PULSE 96; RESP 18; TEMP 36.4; O2SAT 97
--- NOTE | 2019-04-09 19:39 | PM.PN.1 ---
Subjective Date Patient Seen: 04/09/19 Time Patient Seen: 19:39 Interval history: Patient post multiple rib fractures and small pneumothorax. He was seen earlier by Dr. Alexis. This evening he is feeling well. Pain is fairly well controlled. He gets increased pain when he takes a really deep breath or coughs. He has been working on deep breathing. Exam Vital Signs (past 8 hours): - 04/09/19 15:32 04/09/19 19:34 Temperature 97.3 F L 97.5 F L Pulse Rate 95 H 96 H Respiratory Rate 18 18 Blood Pressure 135/72 134/75 Pulse Oximetry 96 97 Oxygen Delivery Method Room Air Oxygen Flow Rate 0 Narrative Exam Narrative: Good air movement. Decreased breath sounds on the left compared with the right. Abdomen is protuberant soft nontender without mass Objective Labs Result Diagrams: 04/08/19 23:55 04/08/19 23:55 Labs: Laboratory Results - last 24 hr 04/08/19 04/08/19 04/08/19 23:55 23:55 23:55 WBC 12.6 H RBC 3.77 L Hgb 12.7 L Hct 37.0 L MCV 98.2 MCH 33.5 MCHC 34.2 RDW 12.6 Plt Count 160 Neut % (Auto) 81.2 H Lymph % (Auto) 9.4 L [place] % (Auto) 8.6 Eos % (Auto) 0.5 L Baso % (Auto) 0.3 Neut # (Auto) 49319 H Lymph # (Auto) 1200 [place] # (Auto) 1100 H Eos # (Auto) 100 Baso # (Auto) 0 PT 11.9 INR 1.0 APTT 27 Sodium 136 L Potassium 4.7 Chloride 98 Carbon Dioxide 28 BUN 23 H Creatinine 0.90 Estimated GFR > 60.0 BUN/Creatinine Ratio 25.6 H Glucose 183 H Calcium 9.7 Assessment & Plan Assessment & Plan narrative: Reviewed his x-rays. No evidence of pneumothorax on this morning's x-ray. Will repeat x-rays and labs in the morning. Possible discharge tomorrow.
[2019-04-09 23:00] VITALS: BP 129/71; PULSE 93; RESP 18; TEMP 36.4; O2SAT 98
[2019-04-09 23:23] LABS: Bacteria Urine None Seen; RBC Urine None Seen (0-5/HPF); WBC Urine None Seen (0-5/HPF)
[2019-04-09 23:24] LABS: Appearance Urine UA CLEAR; Bilirubin Urine UA 1+ (NEGATIVE); Color Urine UA YELLOW; Glucose Urine UA 1+ g/dL (Negative); Ketones Urine UA NEGATIVE (NEGATIVE); Leukocyte Esterase Urine UA NEGATIVE (NEGATIVE); Nitrite Urine UA NEGATIVE (Negative); Occult Blood Urine UA NEGATIVE (Negative); Protein Urine UA NEGATIVE (Negative); Specific Gravity Urine UA 1.015 (1.000-1.035); Urobilinogen Urine UA 0.2 E.U./dL (0.2); pH Urine UA 5.5 (4.5-8.0)
[2019-04-10] MEDS: METOPROLOL IR 25 MG TABLET 12.5 MG PO ×2 (00:15→06:01)
[2019-04-10 01:46] LABS: Culture Indicated Urine Cult Not Indicated
[2019-04-10 01:49] LABS: Ictotest Urine Positive (Negative)
[2019-04-10] MEDS: LACTATED RINGERS 1,000 ML 50 ML IV (04:20)
[2019-04-10 06:00] VITALS: BP 139/80; PULSE 86; RESP 16; TEMP 36.3; O2SAT 96
--- NOTE | 2019-04-10 06:00 | DI.RAD.S_ITS ---
PROCEDURE: XR CHEST 1V INDICATIONS: eval for Left pneumothorax TECHNIQUE: One view of the chest was acquired. COMPARISON: [facility], CR, XR CHEST 1V, 04/09/2019, 6:22. [facility], CT, CT CHEST WO CON, 04/08/2019, 21:46. [facility], CR, XR RIBS LT MIN 3V W CXR1V, 04/08/2019, 21:02. FINDINGS: Surgical changes and devices: None. Lungs and pleura: No pneumothorax is seen. There is a trace left-sided pleural effusion. The right lung appears clear. Mediastinum: The cardiac contours are within normal limits. The aorta demonstrates calcification and tortuosity. Bones and chest wall: Mildly displaced left posterior rib fractures are seen, which are better seen on prior CT. No suspicious bony lesions. Age-appropriate bony degenerative changes are seen. There is a small amount of left chest wall subcutaneous emphysema. IMPRESSION: Negative for pneumothorax. Small left-sided pleural effusion. Left posterior rib fractures with left subcutaneous emphysema. Dictated by: Saul Cummings M.D. on 04/10/2019 at 7:05 Approved by: Saul Cummings M.D. on 04/10/2019 at 7:07
[2019-04-10] MEDS: HEPARIN 5,000 UNIT/ML VIAL 5000 UNIT SUBCUT (06:01)
[2019-04-10] MEDS: GABAPENTIN 300 MG CAPSULE PO ×2 (06:01→12:12)
[2019-04-10 06:32] LABS: BUN Creatinine Ratio 22.5 (6-22); Blood Urea Nitrogen 18 mg/dL (9-20); Calcium 8.7 mg/dL (8.4-10.2); Carbon Dioxide 31 mmol/L (22-32); Chloride 99 mmol/L (98-107); Estimated Glomerular Filt Rate > 60.0 mL/min (>60); Glucose 162 mg/dL (80-110); HEMOLYSIS < 15 (0-50); Magnesium 2.1 mg/dL (1.6-2.3); Potassium 4.3 mmol/L (3.4-5.1); Sodium 134 mmol/L (137-145)
[2019-04-10 06:40] LABS: Add Manual Diff / Slide Review NO; Basophils Absolute Auto 0 /uL (0-100); Basophils Percent Auto 0.8 % (0-2); Eosinophils Absolute Auto 200 /uL (0-450); Eosinophils Percent Auto 3.9 % (2-4); Hematocrit 31.9 % (41-53); Hemoglobin 11.1 g/dL (13.5-17.5); Lymphocytes Absolute Auto 1100 /uL (1100-4500); Lymphocytes Percent Auto 20.9 % (25-40); Mean Corpuscular HGB Conc 34.6 % (30-36); Mean Corpuscular Volume 98.2 fL (80-100); Monocytes Absolute Auto 500 /uL (0-900); Monocytes Percent Auto 10.2 % (3-14); Neutrophils Absolute Auto 3400 /uL (1500-7000); Neutrophils Percent Auto 64.2 % (50-75); Platelet Count 124 X10^3/uL (150-400); Red Blood Cell Count 3.25 X10^6/uL (4.5-5.9); Red Cell Distribution Width 12.6 % (11.6-14.8); White Blood Cell Count 5.3 X10^3/uL (4.5-11.0)
[2019-04-10 08:00] VITALS: BP 150/84; PULSE 83; RESP 16; TEMP 36.6; O2SAT 97
[2019-04-10] MEDS: POLYETHYLENE GLYCOL 3350 17 GM POWD.PACK PO (09:13)
[2019-04-10] MEDS: INSULIN ASPART 100 UNIT/ML INSULN PEN SUBCUT ×2 (09:13→12:10)
[2019-04-10] MEDS: METHOCARBAMOL 500 MG TABLET PO ×2 (09:14→12:10)
[2019-04-10] MEDS: TAMSULOSIN 0.4 MG CAPSULE PO (09:15)
[2019-04-10] MEDS: CELECOXIB 200 MG CAPSULE PO (09:15)
[2019-04-10] MEDS: ASPIRIN EC 81 MG TABLET PO (09:15)
--- NOTE | 2019-04-10 09:49 | PT.IPTN ---
Current Diagnoses Multiple fractures of ribs, left side, initial encounter for closed fracture (04/08/19) Physical Therapy Treatment Note M2 PT-IP Current Condition Start: 04/09/19 12:07 Freq: NEEDED Status: Active Protocol: Document 04/09/19 11:17 AB (Rec: 04/09/19 12:22 AB [id number]) Physical Therapy Current Condition Current Condition Evaluation Date 04/09/19 Treatment Diagnosis s/p fall: L rib 7-10 fx; pneumothorax; difficulty in walking Onset Date 04/08/19 Precautions Other Precautions falls M3 PT-IP Subjective Start: 04/09/19 12:07 Freq: NEEDED Status: Active Protocol: Document 04/10/19 09:49 AB (Rec: 04/10/19 11:39 AB [id number]) Subjective Physical Therapy Visit Type Type Treatment Note Visit Start Time 09:49 Visit Stop Time 10:00 Total Visit Minutes 11 Number of ASSISTANT DIRECTOR OF FINANCIAL AID Visits 0 Physical Therapy Visit Comments Patient Comments pt agreeable to do PT Therapy Pain Assessment Pain When Pain Assessed During Mobility Pain Present Pain Present Pain Reported Location Left Upper Back Scale Used pain scale not stated Pain Management Techniques Re-positioning Timing of Activity with Medications M4 PT-IP Mobility and Gait Start: 04/09/19 12:07 Freq: NEEDED Status: Active Protocol: Document 04/10/19 09:49 AB (Rec: 04/10/19 11:39 AB [id number]) PT-Transfer Assessment Sit to and From Stand Sit to and from Stand Standby Assistance 1 Person Assistance Use of Upper Extremities Equipment Transfer Assistive Device Gait Belt Front Wheeled Walker Gait Assessment Gait Gait Assistance Required: Standby Assistance Distance (Feet) 100 Able to Maintain Weight Bearing Status Yes During Gait Assistive Devices Assistive Device Gait Belt Front Wheeled Walker Orthotic/Prosthetic Devices or Brace: No Gait Deviations General Gait Pattern Antalgic Flexed Trunk Factors Limiting Gait Function Factors Limiting Gait Function Decreased Activity Tolerance Decreased Strength Limited Range of Motion Pain Poor Balance Comments Gait Comments pt completed ambulation using FWW 100 ft x 2 SBA and cues for safety. Stair Climbing Assessment Evaluation Level of Assist On Stairs Contact Guard Assistance Devices Stair Climbing Assistive Devices Left Railing Technique/Endurance Stair Climbing Direction Ascend and Descend Stair Climbing Technique Step to Step Number of Steps Climbed 3 Query Text: Stair Climbing Set # Repetitions (reps) 2 M5 PT-IP Objective Assessments Start: 04/09/19 12:07 Freq: NEEDED Status: Active Protocol: Document 04/09/19 11:17 AB (Rec: 04/09/19 12:22 AB [id number]) Orientation Orientation/Cognition Level of Alertness Alert Orientation Name Place Situation Gross Range of Motion Lower Extremity ROM Assessment Within Functional Limits Strength Lower Extremity Strength Assessment Bilaterally Impaired Hip 4-/5 Knee 4-/5 Coordination Assessment Gross Coordination Gross Coordination WNL Sensation Assessment Sensation Gross Sensation WNL Muscle Tone Muscle Tone WNL Yes M6 PT-IP Treatment Start: 04/09/19 12:07 Freq: NEEDED Status: Active Protocol: Document 04/10/19 09:49 AB (Rec: 04/10/19 11:39 AB [id number]) Physical Therapy Treatment Education Education Provided Safety M7 PT-IP Assessment and Plan Start: 04/09/19 12:07 Freq: NEEDED Status: Active Protocol: Document 04/10/19 09:49 AB (Rec: 04/10/19 11:39 AB [id number]) PT Summary Assessment and Plan Potential Rehabilitation Potential Good Summary Impairments Pain ROM Strength Balance Bed Mobility Transfers Gait Activity Tolerance Progress Towards Goals Progressing Toward Goals Assessment Summary pt requiring SBA with mobility and will need a FWW for ambulation at this time. pt stated that his daughter was able to get a FWW for him to use. pt plans to go home with spouse to assist him. pt may go home when medically stable. Goals Bed Mobility Goal Independent Transfer Goal Independent Front Wheeled Walker Gait Goal Independent Front Wheel Walker Gait Distance 200 Other Goals up/down 2 steps L rail ascending SBA Days to Meet Goals 5 Frequency of Treatment Frequency Of Treatment Once a Day Treatment Plan Physical Therapy Treatment Plan Bed Mobility Training Transfer Training Gait Training Therapeutic Exercise Balance Retraining Discharge Planning Hot or Cold Pack Neuromuscular Re-ed Coordination Retraining Manual Therapy Other Recommendations and Next Treatment ambulation, stair climbing Focus Recommendations To Nursing Amount of Assist Needed Standby Assistance Discharge Recommendations PT Discharge Recommendations Home with Assistance Home Health
--- NOTE | 2019-04-10 10:07 | PM.DS.1 ---
History of Present Illness Chief complaint: Fall Down 3 Stairs Discharge Providers Date of admission: 04/08/19 23:45 Discharge Date: 04/10/19 Primary care physician: Dc Najera MD Consults: 04/09/19 06:54 Consult to Physical Therapy Evaluate & Treat Comment: s/p fall at home - gait and strenght training Physician Instructions: Evaluate and Treat 04/09/19 08:00 Consult to Physician Routine Comment: Consulting Provider: Dc Najera Reason for consultation: Primary care physician Discharge provider: Deep Wyatt MD Summary Discharge Diagnosis: Multiple left posterolateral rib fractures nondisplaced. Hospital Course: Patient was admitted 2 days ago with 5 left posterolateral rib fractures which are nondisplaced. Admission chest x-ray revealed a small pneumothorax which has completely resolved. There was also a small effusion which is presumably a small hemo thorax. His hemoglobin has remained stable. Today the patient is feeling very well ambulating with a walker pain is well controlled on oral medication. Patient does not want narcotics at home. Patient is using his incentive spirometer regularly and reaches 2000 cc. Patient will be discharged on Aleve [id number]. Will continue using his incentive spirometer. He will follow up with his medical physician. I have advised taking a stool softener. Patient has a walker at home. Status at Discharge Cognitive/behavioral status at discharge: oriented Functional status at discharge: independent ambulation Overall status at discharge: patient is progressing back to baseline Time Spent with Patient Less than 30 minutes Exam Vital Signs (past 8 hours): - 04/10/19 06:00 04/10/19 08:00 Temperature 97.4 F L 97.9 F Pulse Rate 86 83 Respiratory Rate 16 16 Blood Pressure 139/80 150/84 H Pulse Oximetry 96 97 Oxygen Delivery Method Room Air Oxygen Flow Rate 0 Narrative Exam Narrative: Patient is afebrile. He is alert and oriented. He has minimal complaints of pain. He is walking with the aid of a walker in the hallway. Patient continues to have left posterolateral rib tenderness. Breath sounds are somewhat diminished but are present and sound normal. Objective Labs Result Diagrams: 04/10/19 05:50 04/10/19 05:50 Labs: Laboratory Results - last 24 hr 04/09/19 04/10/19 04/10/19 Unknown 05:50 05:50 WBC 5.3 D RBC 3.25 L Hgb 11.1 L Hct 31.9 L MCV 98.2 MCH 34.0 MCHC 34.6 RDW 12.6 Plt Count 124 L Neut % (Auto) 64.2 Lymph % (Auto) 20.9 L Smith % (Auto) 10.2 Eos % (Auto) 3.9 Baso % (Auto) 0.8 Neut # (Auto) 3400 Lymph # (Auto) 1100 Smith # (Auto) 500 Eos # (Auto) 200 Baso # (Auto) 0 Sodium 134 L Potassium 4.3 Chloride 99 Carbon Dioxide 31 BUN 18 Creatinine 0.80 Estimated GFR > 60.0 BUN/Creatinine Ratio 22.5 H Glucose 162 H Calcium 8.7 Magnesium 2.1 Urine Color Yellow Urine Appearance Clear Urine pH 5.5 Ur Specific [place] 1.015 Urine Protein Negative Urine Glucose (UA) 1+ H Urine Ketones Negative Urine Occult Blood Negative Urine Nitrate Negative Urine Bilirubin 1+ H Urine Ictotest Positive H Urine Urobilinogen 0.2 Ur Leukocyte Esterase Negative Urine RBC None seen Urine WBC None seen Urine Bacteria None seen Ur Culture Indicated? Cult not indicated Discharge Plan Discharge Plan Patient Disposition: Home Discharge comment: follow up with medical doctor as needed Discharge Med Rec/Prescriptions Prescriptions: Continued metformin 500 mg Tablet 500 mg PO BID RF: 0 glyburide 2.5 mg Tablet 2.5 mg PO DAILY RF: 0 lisinopril 20 mg Tablet 20 mg PO DAILY RF: 0 hydrochlorothiazide 25 mg Tablet 25 mg PO DAILY RF: 0 metoprolol tartrate 25 mg Tablet 25 mg PO BID RF: 0 tamsulosin 0.4 mg Capsule 0.4 mg PO DAILY RF: 0 Aspirin Low Dose 81 mg RF: 0 Follow up/Referrals: Dc Najera MD [Primary Care Provider] - Provider Discharge Instructions Diet: Carb-consistent/Diabetic Cold/Heat Therapy: as desired Other treatments: incentive spirometer, aleve as needed for pain,tylenol as needed for pain. take laxative or stool softener Skin/Wound/Dressing Care Report to your healthcare provider any signs of infection, such as:: chills, fever and increased pain Discharge Data Primary Care Provider: Dc Najera Attending Provider: Gil Alexis Admit Date/Time: 04/08/19 23:45
--- NOTE | 2019-04-10 10:31 | P.PN_ITS ---
Subjective Date Patient Seen: 04/10/19 Time Patient Seen: 10:28 Interval history: Patient is hospitalized with 5 left posterior lateral rib fractures after a fall he has been proving daily. Patient states that he is taking deep breaths and using the incentive spirometer regularly. He can get the spirometer up to 2000 cc. He is ambulating with a walker. Exam Vital Signs (past 8 hours): - 04/10/19 06:00 04/10/19 08:00 Temperature 97.4 F L 97.9 F Pulse Rate 86 83 Respiratory Rate 16 16 Blood Pressure 139/80 150/84 H Pulse Oximetry 96 97 Oxygen Delivery Method Room Air Oxygen Flow Rate 0 Narrative Exam Narrative: Patient is afebrile. Of course he still has left-sided rib tenderness. he has somewhat diminished breath sounds left side but audible breath sounds to the apex. Objective Labs Result Diagrams: 04/10/19 05:50 04/10/19 05:50 Labs: Laboratory Results - last 24 hr 04/09/19 04/10/19 04/10/19 Unknown 05:50 05:50 WBC 5.3 D RBC 3.25 L Hgb 11.1 L Hct 31.9 L MCV 98.2 MCH 34.0 MCHC 34.6 RDW 12.6 Plt Count 124 L Neut % (Auto) 64.2 Lymph % (Auto) 20.9 L [place] % (Auto) 10.2 Eos % (Auto) 3.9 Baso % (Auto) 0.8 Neut # (Auto) 3400 Lymph # (Auto) 1100 [place] # (Auto) 500 Eos # (Auto) 200 Baso # (Auto) 0 Sodium 134 L Potassium 4.3 Chloride 99 Carbon Dioxide 31 BUN 18 Creatinine 0.80 Estimated GFR > 60.0 BUN/Creatinine Ratio 22.5 H Glucose 162 H Calcium 8.7 Magnesium 2.1 Urine Color Yellow Urine Appearance Clear Urine pH 5.5 Ur Specific [place] 1.015 Urine Protein Negative Urine Glucose (UA) 1+ H Urine Ketones Negative Urine Occult Blood Negative Urine Nitrate Negative Urine Bilirubin 1+ H Urine Ictotest Positive H Urine Urobilinogen 0.2 Ur Leukocyte Esterase Negative Urine RBC None seen Urine WBC None seen Urine Bacteria None seen Ur Culture Indicated? Cult not indicated Assessment & Plan Assessment & Plan narrative: Chest x-ray this morning reveals no pneumothorax no pneumonia no contusion. He still has a small left-sided pleural effusion. Other structures are unremarkable outside of the fact that he has minimally displaced rib fractures left posterior lateral. Patient would like to go home today. He will resume his pre-admission medications for diabetes and hy pertension. He does not want narcotics at home. He will take Tylenol and Aleve alternate and as needed for pain. patient already has a walker at home. He will follow up with his medical physician. Discharge summary has been prepared.
--- NOTE | 2019-04-10 11:29 | CM.DPC ---
Addendum entered by Jacqui Lovelace R.N. 04/10/19 15:38: Was able to get in touch with Shania at [facility]. Called the main [facility] number. Stated that they received referral, and confirmed that they do take his insurance. Stated with the holiday week-end, may be Friday visit. Had already let patient know that visit could take up to 48 hours. Original Note: DCP Cont: Patient is to be discharged today. Discussed with Dr. Bailey, surgeon. Asked him about home health. He stated, he felt that the patient was getting around ok, but could go ahead and order. Had him sign face to face. Checked in with patient's about home health, and she stated, it's up to [facility]. Discussed with patient, he wants someone to come to the home, but he was getting outpatient mixed up with home health. Patient is home bound at this time, and he stated, if he had to go out he could. Agreed that he could use a couple weeks of someone coming. They have no preference regarding agencies. Went ahead and left [facility] a message and faxed over face sheet, orders, and discharge summary. Let patient know that it could be 48 hours that they could come to the home. He is aware. Had him sign updated IMM form. P: Patient is to be discharged home today with home health. Jacqui Lovelace RN/Rfid Manager
[2019-04-10 12:00] VITALS: BP 134/76; PULSE 99; RESP 16; TEMP 36.4; O2SAT 98
--- NOTE | 2019-04-10 14:15 | PT.IIE ---
Current Diagnoses Multiple fractures of ribs, left side, initial encounter for closed fracture (04/08/19) Surgical History (Last Reviewed 04/09/19 @ 05:35 by Liu Saleem MD) H/O cataract removal with insertion of prosthetic lens (Acute) No pertinent past surgical history (Acute) Medical History (Last Reviewed 04/09/19 @ 05:35 by Liu Saleem MD) BPH (benign prostatic hyperplasia) (Acute) Hypertension (Acute) Skin cancer (Acute) Diabetes (Acute) Hyperlipidemia (Acute) Physical Therapy Inpatient Evaluation/Re-Eval M1 PT/OT-IP Prior Functional Status Start: 04/09/19 12:07 Freq: NEEDED Status: Active Protocol: Document 04/09/19 11:17 AB (Rec: 04/09/19 12:22 AB [id number]) Medical Review Prior Functional Status Medical History Reviewed Yes Communication able to make needs known Mobility and Gait pt stated that he is modified independent with all mobilities and ambulation without AD but occasionally uses a SPC/walking stick. Social History Household Members spouse children Living Arrangements House Number of Floors (Floors) Two Floors Number of Stairs To Enter/Railing? pt stays on main level of the house has 2 steps to enter with L rail ascending from the front of the house has 2 steps L rail +15 steps L rail to enter the house from the garage Home Environment High Toilet Walk in Shower Home Equipment Straight Cane Grab Bars In Shower Employment Status [employer] Employed Additional Social History Comment pt works at [employer] M2 PT-IP Current Condition Start: 04/09/19 12:07 Freq: NEEDED Status: Active Protocol: Document 04/09/19 11:17 AB (Rec: 04/09/19 12:22 AB [id number]) Physical Therapy Current Condition Current Condition Evaluation Date 04/09/19 Treatment Diagnosis s/p fall: L rib 7-10 fx; pneumothorax; difficulty in walking Onset Date 04/08/19 Precautions Other Precautions falls M3 PT-IP Subjective Start: 04/09/19 12:07 Freq: NEEDED Status: Active Protocol: Document 04/10/19 09:49 AB (Rec: 04/10/19 11:39 AB [id number]) Subjective Physical Therapy Visit Type Type Treatment Note Visit Start Time 09:49 Visit Stop Time 10:00 Total Visit Minutes 11 Number of COMMISSION ASSOCIATE Visits 0 Physical Therapy Visit Comments Patient Comments pt agreeable to do PT Therapy Pain Assessment Pain When Pain Assessed During Mobility Pain Present Pain Present Pain Reported Location Left Upper Back Scale Used pain scale not stated Pain Management Techniques Re-positioning Timing of Activity with Medications M4 PT-IP Mobility and Gait Start: 04/09/19 12:07 Freq: NEEDED Status: Active Protocol: Document 04/10/19 09:49 AB (Rec: 04/10/19 11:39 AB [id number]) PT-Transfer Assessment Sit to and From Stand Sit to and from Stand Standby Assistance 1 Person Assistance Use of Upper Extremities Equipment Transfer Assistive Device Gait Belt Front Wheeled Walker Gait Assessment Gait Gait Assistance Required: Standby Assistance Distance (Feet) 100 Able to Maintain Weight Bearing Status Yes During Gait Assistive Devices Assistive Device Gait Belt Front Wheeled Walker Orthotic/Prosthetic Devices or Brace: No Gait Deviations General Gait Pattern Antalgic Flexed Trunk Factors Limiting Gait Function Factors Limiting Gait Function Decreased Activity Tolerance Decreased Strength Limited Range of Motion Pain Poor Balance Comments Gait Comments pt completed ambulation using FWW 100 ft x 2 SBA and cues for safety. Stair Climbing Assessment Evaluation Level of Assist On Stairs Contact Guard Assistance Devices Stair Climbing Assistive Devices Left Railing Technique/Endurance Stair Climbing Direction Ascend and Descend Stair Climbing Technique Step to Step Number of Steps Climbed 3 Query Text: Stair Climbing Set # Repetitions (reps) 2 M5 PT-IP Objective Assessments Start: 04/09/19 12:07 Freq: NEEDED Status: Active Protocol: Document 04/09/19 11:17 AB (Rec: 04/09/19 12:22 AB [id number]) Orientation Orientation/Cognition Level of Alertness Alert Orientation Name Place Situation Gross Range of Motion Lower Extremity ROM Assessment Within Functional Limits Strength Lower Extremity Strength Assessment Bilaterally Impaired Hip 4-/5 Knee 4-/5 Coordination Assessment Gross Coordination Gross Coordination WNL Sensation Assessment Sensation Gross Sensation WNL Muscle Tone Muscle Tone WNL Yes M6 PT-IP Treatment Start: 04/09/19 12:07 Freq: NEEDED Status: Active Protocol: Document 04/10/19 09:49 AB (Rec: 04/10/19 11:39 AB [id number]) Physical Therapy Treatment Education Education Provided Safety M7 PT-IP Assessment and Plan Start: 04/09/19 12:07 Freq: NEEDED Status: Active Protocol: Document 04/10/19 09:49 AB (Rec: 04/10/19 11:39 AB [id number]) PT Summary Assessment and Plan Potential Rehabilitation Potential Good Summary Impairments Pain ROM Strength Balance Bed Mobility Transfers Gait Activity Tolerance Progress Towards Goals Progressing Toward Goals Assessment Summary pt requiring SBA with mobility and will need a FWW for ambulation at this time. pt stated that his daughter was able to get a FWW for him to use. pt plans to go home with spouse to assist him. pt may go home when medically stable. Goals Bed Mobility Goal Independent Transfer Goal Independent Front Wheeled Walker Gait Goal Independent Front Wheel Walker Gait Distance 200 Other Goals up/down 2 steps L rail ascending SBA Days to Meet Goals 5 Frequency of Treatment Frequency Of Treatment Once a Day Treatment Plan Physical Therapy Treatment Plan Bed Mobility Training Transfer Training Gait Training Therapeutic Exercise Balance Retraining Discharge Planning Hot or Cold Pack Neuromuscular Re-ed Coordination Retraining Manual Therapy Other Recommendations and Next Treatment ambulation, stair climbing Focus Recommendations To Nursing Amount of Assist Needed Standby Assistance Discharge Recommendations PT Discharge Recommendations Home with Assistance Home Health
--- NOTE | 2019-04-10 15:43 | PC.NURSE ---
Discharge: Feels ready to d/c home. Denies any sob and sats are in the high 90's average about 97% at rest and when up and amb. Seen by Dr. Wyatt and been given his final d/c instructions. Reviewed his d/c instructions for home. Questions answered. Pt d/c home via auto w/spouse.
== END 2019-04-10 13:30 | disposition home health service (06) | DRG 200 ==
LOC: ED 20:56 → AC 23:46
PROVIDERS: Specialist; Admitting Provider Surgery; Emergency Provider Emergency Medicine; Family Provider Family Medicine; PCP Family Medicine; Visit Provider Surgery
DX: S27.2XXA Traumatic hemopneumothorax, initial encounter (principal); S22.42XA Multiple fractures of ribs, left side, initial encounter for closed fracture; E11.9 Type 2 diabetes mellitus without complications; I10 Essential (primary) hypertension; W10.9XXA Fall (on) (from) unspecified stairs and steps, initial encounter; Z79.84 Long term (current) use of oral hypoglycemic drugs; Z87.891 Personal history of nicotine dependence; Y92.008 Other place in unspecified non-institutional (private) residence as the place of occurrence of the external cause; Z88.4 Allergy status to anesthetic agent
CPT/HCPCS: 36415; 71045; 71101; 71250; 80048; 81001; 82962; 83735; 85025; 85610; 85730; 93005; 93010; 96374; 96376; 97116; 97161; 97530; 99282; 99285; J1170; J1644

== ENCOUNTER → 2019-08-02 11:52 | Outpatient (CLI) | payer MEDICARE, SELFPAY ==
--- NOTE | 2019-08-02 | DI.RAD.S_ITS ---
PROCEDURE: XR CHEST 2V INDICATIONS: DYSPNEA TECHNIQUE: 2 views of the chest were acquired. COMPARISON: [facility], CR, XR CHEST 1V, 04/09/2019, 6:22. [facility], CT, CT CHEST WO CON, 04/08/2019, 21:46. [facility], CR, XR CHEST 1V, 04/10/2019, 5:48. FINDINGS: Surgical changes and devices: None. Lungs and pleura: No pneumothorax. There is a moderate-sized left pleural effusion. There is hazy opacification of the left perihilar region and lower left lung. Mediastinum: Cardiac silhouette is partially obscured by adjacent left basilar pulmonary opacities. Cardiac and mediastinal silhouettes are otherwise within normal limits for size. Bones and chest wall: There are mildly displaced fractures of the left seventh, eighth, and ninth ribs, which appear similar to comparison chest radiograph of 04/10/19. Additional left rib fractures seen on comparison CT of 04/08/19 are less visible on the current exam. Moderate multilevel degenerative changes of the thoracic spine. IMPRESSION: 1. Moderate-sized left pleural effusion with adjacent hazy left lung opacities likely representing atelectasis, increased from comparison exam of 04/10/19. An underlying pneumonia could appear similar and may be obscured. 2. Redemonstrated subacute to chronic displaced left rib fractures, present on comparison chest CT and radiographs of March 2019. Recommend correlation with point tenderness to exclude superimposed acute rib fractures. Dictated by: Bryant Moore M.D. on 08/02/2019 at 14:46 Approved by: Bryant Moore M.D. on 08/02/2019 at 14:52
== END ==
PROVIDERS: PCP Family Medicine; Visit Provider Family Medicine
DX: R06.00 Dyspnea, unspecified (principal); J90 Pleural effusion, not elsewhere classified; S22.42XD Multiple fractures of ribs, left side, subsequent encounter for fracture with routine healing
CPT/HCPCS: 71046

== ENCOUNTER 2019-08-11 09:00 | Outpatient (RCR) | payer MEDICARE, SELFPAY ==
[2019-07-28 14:50] VITALS: BP 132/98
--- NOTE | 2019-07-28 17:06 | PT.OIE ---
Current Diagnoses Type 2 diabetes mellitus with diabetic polyneuropathy (07/28/19) History of falling (07/28/19) Past Medical History (Last Reviewed 04/09/19 @ 05:35 by Liu Saleem MD) BPH (benign prostatic hyperplasia) (Acute) Diabetes (Acute) Hyperlipidemia (Acute) Hypertension (Acute) Skin cancer (Acute) Past Surgical History (Last Reviewed 04/09/19 @ 05:35 by Liu Saleem MD) H/O cataract removal with insertion of prosthetic lens (Acute) No pertinent past surgical history (Acute) Visit Care Team Role Provider Type Dc Najera MD Attending Provider Physician Primary Care Provider Specialty: [facility] Address: [address] [place] [address] [place], [facility] Email: [email or web address] Physical Therapy Initial Evaluation PT-OP-A Visit Information Start: 07/28/19 14:49 Freq: Status: Active Protocol: Document 07/28/19 14:50 AW (Rec: 07/28/19 17:05 AW [email or web address]) Out-Patient Physical Therapy Visit Information Visit Information Visit Type Initial Evaluation Visit Start Time 09:45 Visit Stop Time 10:33 Total Visit Minutes 48 Visit Number 1 Number of MICROARRAY SPECIALIST Visits 0 Evaluation Information Evaluation Date 07/28/19 Precautions Precautions Fall risk secondary to peripheral neuropathy PT-OP-B Current Condition Start: 07/28/19 14:49 Freq: Status: Active Protocol: Document 07/28/19 14:50 AW (Rec: 07/28/19 17:05 AW [email or web address]) Current Condition History of Current Condition Onset Date 2 years Current Complaints recent falls, concerns about balance, bilateral distal LE neuropathy History of Current Condition Bill has a history of falls, diabetes type 2 (controlled medically), peripheral neuropathy, arthritis, and melanoma. He reports 4 falls ( 2 injurious) in the past year. He reports his last fall in March 2019 resulted in several broken ribs and pneumothorax for which he was hospitalized. At that time, PT recommended he use a FWW for all mobility, which he did for ~3 weeks before resorting to a SPC. He now uses the SPC for all community mobility and most household mobility. One year ago, he was able to perform yardwork with no assistive device and little limitation. He is currently unable/fearful to walk on uneven surfaces for fear of falling. Pt lives with his and dog in a townhouse connected to his son's residence. 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 Prior Treatments and Tests Darryl had PT for balance concerns about a year ago and found he improved. Future Testing and Treatments Planned Darryl has an appointment with a neurologist in [place] next Friday to address his neuropathy. Treatment Goals Patient/Caregiver Goals 1. Improve balance and strength 2. Ability to get up from the floor. 3. Use own recumbent bike at home 4. Sleep >1.5 hours without interruption 5. More confidence with walking and carrying a gallon of paint which he does at work Prior Functional Status Baseline Function- ADL's Independent Baseline Function- Mobility Modified Independent Baseline Function- Gait no limitation in distance Baseline Function- Work/School Able to carry gallons of paint in the store, but with recent decreasing confidence. Baseline Function- Recreation/Hobbies Yardwork Current Functional Impairments (Reported) Functional Limitations- ADL's None identified Functional Limitations- Mobility/Gait Balance concerns, 4 falls in the past year. Functional Limitations- Work/School Decreasing confidence in ability to carry objects and walk Functional Limitations- Recreation/ Difficulty/fear of performing Hobbies yard work on uneven surfaces PT-OP-C Subjective Start: 07/28/19 14:49 Freq: Status: Active Protocol: Document 07/28/19 14:50 AW (Rec: 07/28/19 17:05 AW [email or web address]) OP-PT Subjective Patient Comments Patient Comments I just want to get stronger and have better balance. I'd love to be able to get off the floor more easily Patient Questionnaires ABC- Activity Specific Balance Confidence Scale ABC Score 34 ABC Functional Impairment 60 to <80% Impaired (Score 21- 40) OP-PT Pain Assessment Home Pain Medication Use Pain Medications Used No PT-OP-D Balance Start: 07/28/19 14:49 Freq: Status: Active Protocol: Document 07/28/19 14:50 AW (Rec: 07/28/19 17:05 AW [email or web address]) OP-PT Balance Assessment Sitting Balance Static Sitting Balance Ability Good Dynamic Sitting Balance Ability Good Standing Balance Static Standing Balance Ability Fair Dynamic Standing Balance Ability Fair Device Used SPC Banks Fall Scale Copyright Permission PT-OP-E Functional Tests Start: 07/28/19 14:49 Freq: Status: Active Protocol: Document 07/28/19 14:50 AW (Rec: 07/28/19 17:05 AW [email or web address]) Functional Tests Dynamic Gait Index (DGI) Score 15 DGI Impairment Rating 20 to <40% Impaired (Score 15- 19) PT-OP-G Mobility & Gait Start: 07/28/19 14:49 Freq: Status: Active Protocol: Document 07/28/19 14:50 AW (Rec: 07/28/19 17:05 AW [email or web address]) OP Mobility Evaluation Bed Mobility Supine to and from Sit SBA due to pt unease with being on edge of mat Transfers Sit to Stand independent OP Gait Assessment Gait Gait Assistance Required: Standby Assistance Assistive Devices Assistive Device Straight Cane Orthotic/Prosthetic Devices or Brace: No Gait Deviations General Gait Pattern Decreased Stride Length, Decreased Feet Clearance, Flexed Trunk Factors Limiting Gait Function Factors Limiting Gait Function Decreased Sensation,Decreased Strength Comments Gait Comments Pt reports no limitation in gait distance with SPC. Gait is characterized by decreased step length and flexed trunk Stair Climbing Evaluation Evaluation Level of Assist On Stairs Standby Assistance Devices Stair Climbing Assistive Devices Left Railing,Right Railing Technique/Endurance Stair Climbing Direction Ascend and Descend Stair Climbing Technique Step Over Step Number of Steps Climbed 4 Comments Stair Climbing Comments Up/down 4 steps using step over step pattern and bilateral rails to simulate home environment. PT-OP-H Neuro Start: 07/28/19 14:49 Freq: Status: Active Protocol: Document 07/28/19 14:50 AW (Rec: 07/28/19 17:05 AW [email or web address]) Sensation Evaluation Gross Sensation Gross Sensation Left LE Impaired,Right LE Impaired Sensation Description Numbness Location Details Foot Light Touch Impaired Proprioception (Position) Intact/Normal Comments Summary Comments Light touch sensation dull in bilateral feet (stocking distribution). Plantar and dorsal surfaces affected. Joint position sense at ankle and great toe intact. Coordination Evaluation Comments Coordination Comments Bilateral [id number] and finger to therapist finger WNL with no sign of dysmetria Deep Tendon Reflex & Clonus Assessment Deep Tendon Reflex Bilateral Achilles Deep Tendon Reflex 0 Absent Bilateral Patellar Deep Tendon Reflex 1+ Diminished Bilateral Bicep Deep Tendon Reflex 1+ Diminished Ankle Clonus Bilateral Clonus Assessment Absent Vital Signs Blood Pressure Sitting Blood Pressure (90/60-120/80 mmHg) 132/98 H Blood Pressure Source Manual Cuff,Left Upper Extremity PT-OP-K Range of Motion Start: 07/28/19 14:49 Freq: Status: Active Protocol: Document 07/28/19 14:50 AW (Rec: 07/28/19 17:05 AW [email or web address]) Shoulder Goniometric Range of Motion Shoulder ROM Limitations Comments Shoulder AROM WFL Elbow/Forearm Range of Motion Elbow/Forearm ROM Limitations Comments WFL Wrist Goniometric Range of Motion ROM Limitations Comments WFL Hip Goniometric Range of Motion Hip ROM Limitations Comments Bilateral hip AROM WFL Knee Goniometric Range of Motion Knee ROM Limitations Comments WFL Ankle and Foot Goniometric Range of Motion Ankle and Foot ROM Limitations Comments WFL Toe Range of Motion Toes ROM Limitations Comments WFL PT-OP-M Strength Start: 07/28/19 14:49 Freq: Status: Active Protocol: Document 07/28/19 14:50 AW (Rec: 07/28/19 17:05 AW [email or web address]) Shoulder Strength Shoulder Manual Muscle Testing Right Comments Bilateral shoulder strength grossly 5/5 Elbow/Forearm Strength Elbow and Forearm Manual Muscle Testing Right Comments Bilateral elbow strength 5/5 Wrist Strength Wrist Manual Muscle Testing Right Comments Bilateral wrists grossly 5/5 Hip Strength Hip Manual Muscle Testing Right Flexion (L2) 4+ Good+ Extension (S1) 3+ Fair+ Abduction 4- Good- External Rotation 4+ Good+ Internal Rotation 4+ Good+ Left Flexion (L2) 4+ Good+ Extension (S1) 3+ Fair+ Abduction 4- Good- External Rotation 4+ Good+ Internal Rotation 4+ Good+ Knee Strength Knee Manual Muscle Testing Right Flexion (S2) 4 Good Extension (L3) 4 Good Left Flexion (S2) 4 Good Extension (L3) 4 Good Ankle/Foot Strength Ankle and Foot Manual Muscle Testing Right Dorsiflexion (L4) 5 Normal Plantarflexion (S1) 4+ Good+ Left Dorsiflexion (L4) 5 Normal Plantarflexion (S1) 4+ Good+ Toe Strength Toe Manual Muscle Testing Right Great Toe Flexion 5 Normal Extension 5 Normal Left Great Toe Flexion 5 Normal Extension 5 Normal PT-OP-T Assessment and Plan Start: 07/28/19 14:49 Freq: Status: Active Protocol: Document 07/28/19 14:50 AW (Rec: 07/28/19 17:05 AW [email or web address]) Physical Therapy Assessment Rehab Potential Rehabilitation Potential Good Evaluation Complexity Number of Personal Factors/Comorbidities 1-2 Number of Body Systems Impaired 1-2 Clinical Presentation at Evaluation Stable Impairments Impairments Balance,Functional Activities, Functional Mobility,Gait, Posture,Sensation,Strength, Transfers Other Concerns Fall Risk yes Barriers to Rehabilitation None identified Goals 4 Impairment Difficulty carrying gallons of paint while walking at work Short Term Goal (STG) Pt will carry gallon of paint at work with >50% confidence STG Duration 08/25/19 [facility] Goal (LTG) Pt to carry gallon of paint at work with 70% confidence or greater LTG Duration 09/22/19 3 Impairment Pt with great difficulty getting up from the floor Short Term Goal (STG) Pt will verbalize and demonstrate floor recovery techniques up to half-kneeling SBA STG Duration 08/25/19 Director Of Group Counseling Program Goal (LTG) Pt will verbalize and demonstrate floor recovery techniques to full standing position SBA LTG Duration 09/22/19 2 Impairment Pt scored 34 on Activities- Specific Balance Confidence Scale. Short Term Goal (STG) Pt to score 45 on ABC for improved self-efficacy with mobility. STG Duration 08/25/19 Director Of Group Counseling Program Goal (LTG) Pt to score 55 or greater on ABC for improved self-efficacy . LTG Duration 09/22/19 1 Impairment Pt scored 15/24 on DGI. Short Term Goal (STG) Pt to score 19/24 on DGI to demonstrate decreased risk of falls STG Duration 08/25/19 Director Of Group Counseling Program Goal (LTG) Pt to score 22/24 on DGI for decreased risk of falls LTG Duration 09/22/19 Assessment Summary Assessment Darryl is a 78 yo man with history of DM2, peripheral neuropathy, and 4 falls within the past year. He presents to outpatient PT using SPC for most mobility, though he is noticed carrying the cane occasionally and states he likes to have it just in case . Self-efficacy is limited as evidenced by score of 34 on ABC scale. Fall risk is high based on DGI score of 15/24. 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 Light touch sensation is impaired in a stocking distribution. Proprioception tested normal at the ankle and great toe. Further balance testing to be undertaken at next visit. This patient will benefit from skilled physical therapy to address balance and gait impairments for overall reduction in his fall risk. Physical Therapy Plan Frequency and Duration Frequency of Treatment 2x/Week Duration of Treatment 8 weeks Plan of Care Start Date 07/28/19 Plan of Care End Date 09/22/19 Therapeutic Interventions Therapeutic Interventions Aquatic Therapy,Balance Training,Coordination Training ,Gait Training,Home Exercise Program,Joint Mobilizations, Manual Therapy,Neuromuscular Re-education,Patient/Caregiver Education,Self-Care/Home Management,Sensory Integration ,Soft Tissue Mobilization, Taping,Therapeutic Activities, Therapeutic Exercises Modalities Cold Pack/Ice Massage,Electric Stimulation,Hot Packs Next Visit Focus/Plan Next Note Type Treatment Note Next Visit Plan Plan to test TUG and modified TUG (while carrying object in hand). Consider testing mCTSIB for sensory integration related to balance. Handout for patient with HEP focused on balance exercises and LE strengthening
--- NOTE | 2019-08-11 10:17 | PT.OTN ---
Current Diagnoses Type 2 diabetes mellitus with diabetic polyneuropathy (08/11/19) History of falling (08/11/19) Physical Therapy Treatment Note PT-OP-A Visit Information Start: 07/28/19 14:49 Freq: Status: Active Protocol: Document 08/11/19 09:46 AW (Rec: 08/11/19 10:07 AW [email or web address]) Out-Patient Physical Therapy Visit Information Visit Information Visit Type Treatment Note Visit Start Time 08:58 Visit Stop Time 09:45 Total Visit Minutes 47 Visit Number 2 Number of FREIGHT FLAGMAN Visits 0 Precautions Precautions Fall risk secondary to peripheral neuropathy PT-OP-B Current Condition Start: 07/28/19 14:49 Freq: Status: Active Protocol: Document 07/28/19 14:50 AW (Rec: 07/28/19 17:05 AW [email or web address]) Current Condition History of Current Condition Onset Date 2 years Current Complaints recent falls, concerns about balance, bilateral distal LE neuropathy History of Current Condition Darryl has a history of falls, diabetes type 2 (controlled medically), peripheral neuropathy, arthritis, and melanoma. He reports 4 falls ( 2 injurious) in the past year. He reports his last fall in March 2019 resulted in several broken ribs and pneumothorax for which he was hospitalized. At that time, PT recommended he use a FWW for all mobility, which he did for ~3 weeks before resorting to a SPC. He now uses the SPC for all community mobility and most household mobility. One year ago, he was able to perform yardwork with no assistive device and little limitation. He is currently unable/fearful to walk on uneven surfaces for fear of falling. Pt lives with his and dog in a townhouse connected to his son's residence. 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 Prior Treatments and Tests Darryl had PT for balance concerns about a year ago and found he improved. Future Testing and Treatments Planned Darryl has an appointment with a neurologist in [place] next Friday to address his neuropathy. Treatment Goals Patient/Caregiver Goals 1. Improve balance and strength 2. Ability to get up from the floor. 3. Use own recumbent bike at home 4. Sleep >1.5 hours without interruption 5. More confidence with walking and carrying a gallon of paint which he does at work Prior Functional Status Baseline Function- ADL's Independent Baseline Function- Mobility Modified Independent Baseline Function- Gait no limitation in distance Baseline Function- Work/School Able to carry gallons of paint in the store, but with recent decreasing confidence. Baseline Function- Recreation/Hobbies Yardwork Current Functional Impairments (Reported) Functional Limitations- ADL's None identified Functional Limitations- Mobility/Gait Balance concerns, 4 falls in the past year. Functional Limitations- Work/School Decreasing confidence in ability to carry objects and walk Functional Limitations- Recreation/ Difficulty/fear of performing Hobbies yard work on uneven surfaces PT-OP-C Subjective Start: 07/28/19 14:49 Freq: Status: Active Protocol: Document 08/11/19 09:46 AW (Rec: 08/11/19 10:07 AW [email or web address]) OP-PT Subjective Patient Comments Patient Comments Pt is having more shortness of breath lately. Chest x-ray showed a mild left pleural effusion. Dr. Najera is managing that. Pt has had no pain with deep breathing, no fever, no unusual weakness. He has an appointment with a neurologist in [place] on Friday to address neuropathy. Patient Reported Progress Same PT-OP-D Balance Start: 07/28/19 14:49 Freq: Status: Active Protocol: Document 07/28/19 14:50 AW (Rec: 07/28/19 17:05 AW [email or web address]) OP-PT Balance Assessment Sitting Balance Static Sitting Balance Ability Good Dynamic Sitting Balance Ability Good Standing Balance Static Standing Balance Ability Fair Dynamic Standing Balance Ability Fair Device Used SPC Banks Fall Scale Copyright Permission PT-OP-E Functional Tests Start: 07/28/19 14:49 Freq: Status: Active Protocol: Document 07/28/19 14:50 AW (Rec: 07/28/19 17:05 AW [email or web address]) Functional Tests Dynamic Gait Index (DGI) Score 15 DGI Impairment Rating 20 to <40% Impaired (Score 15- 19) PT-OP-G Mobility & Gait Start: 07/28/19 14:49 Freq: Status: Active Protocol: Document 07/28/19 14:50 AW (Rec: 07/28/19 17:05 AW [email or web address]) OP Mobility Evaluation Bed Mobility Supine to and from Sit SBA due to pt unease with being on edge of mat Transfers Sit to Stand independent OP Gait Assessment Gait Gait Assistance Required: Standby Assistance Assistive Devices Assistive Device Straight Cane Orthotic/Prosthetic Devices or Brace: No Gait Deviations General Gait Pattern Decreased Stride Length, Decreased Feet Clearance, Flexed Trunk Factors Limiting Gait Function Factors Limiting Gait Function Decreased Sensation,Decreased Strength Comments Gait Comments Pt reports no limitation in gait distance with SPC. Gait is characterized by decreased step length and flexed trunk Stair Climbing Evaluation Evaluation Level of Assist On Stairs Standby Assistance Devices Stair Climbing Assistive Devices Left Railing,Right Railing Technique/Endurance Stair Climbing Direction Ascend and Descend Stair Climbing Technique Step Over Step Number of Steps Climbed 4 Comments Stair Climbing Comments Up/down 4 steps using step over step pattern and bilateral rails to simulate home environment. PT-OP-H Neuro Start: 07/28/19 14:49 Freq: Status: Active Protocol: Document 07/28/19 14:50 AW (Rec: 07/28/19 17:05 AW [email or web address]) Sensation Evaluation Gross Sensation Gross Sensation Left LE Impaired,Right LE Impaired Sensation Description Numbness Location Details Foot Light Touch Impaired Proprioception (Position) Intact/Normal Comments Summary Comments Light touch sensation dull in bilateral feet (stocking distribution). Plantar and dorsal surfaces affected. Joint position sense at ankle and great toe intact. Coordination Evaluation Comments Coordination Comments Bilateral [id number] and finger to therapist finger WNL with no sign of dysmetria Deep Tendon Reflex & Clonus Assessment Deep Tendon Reflex Bilateral Achilles Deep Tendon Reflex 0 Absent Bilateral Patellar Deep Tendon Reflex 1+ Diminished Bilateral Bicep Deep Tendon Reflex 1+ Diminished Ankle Clonus Bilateral Clonus Assessment Absent Vital Signs Blood Pressure Sitting Blood Pressure (90/60-120/80 mmHg) 132/98 H Blood Pressure Source Manual Cuff,Left Upper Extremity PT-OP-K Range of Motion Start: 07/28/19 14:49 Freq: Status: Active Protocol: Document 07/28/19 14:50 AW (Rec: 07/28/19 17:05 AW [email or web address]) Shoulder Goniometric Range of Motion Shoulder ROM Limitations Comments Shoulder AROM WFL Elbow/Forearm Range of Motion Elbow/Forearm ROM Limitations Comments WFL Wrist Goniometric Range of Motion ROM Limitations Comments WFL Hip Goniometric Range of Motion Hip ROM Limitations Comments Bilateral hip AROM WFL Knee Goniometric Range of Motion Knee ROM Limitations Comments WFL Ankle and Foot Goniometric Range of Motion Ankle and Foot ROM Limitations Comments WFL Toe Range of Motion Toes ROM Limitations Comments WFL PT-OP-M Strength Start: 07/28/19 14:49 Freq: Status: Active Protocol: Document 07/28/19 14:50 AW (Rec: 07/28/19 17:05 AW [email or web address]) Shoulder Strength Shoulder Manual Muscle Testing Right Comments Bilateral shoulder strength grossly 5/5 Elbow/Forearm Strength Elbow and Forearm Manual Muscle Testing Right Comments Bilateral elbow strength 5/5 Wrist Strength Wrist Manual Muscle Testing Right Comments Bilateral wrists grossly 5/5 Hip Strength Hip Manual Muscle Testing Right Flexion (L2) 4+ Good+ Extension (S1) 3+ Fair+ Abduction 4- Good- External Rotation 4+ Good+ Internal Rotation 4+ Good+ Left Flexion (L2) 4+ Good+ Extension (S1) 3+ Fair+ Abduction 4- Good- External Rotation 4+ Good+ Internal Rotation 4+ Good+ Knee Strength Knee Manual Muscle Testing Right Flexion (S2) 4 Good Extension (L3) 4 Good Left Flexion (S2) 4 Good Extension (L3) 4 Good Ankle/Foot Strength Ankle and Foot Manual Muscle Testing Right Dorsiflexion (L4) 5 Normal Plantarflexion (S1) 4+ Good+ Left Dorsiflexion (L4) 5 Normal Plantarflexion (S1) 4+ Good+ Toe Strength Toe Manual Muscle Testing Right Great Toe Flexion 5 Normal Extension 5 Normal Left Great Toe Flexion 5 Normal Extension 5 Normal PT-OP-Q Treatments Start: 07/28/19 14:49 Freq: Status: Active Protocol: Document 08/11/19 09:46 AW (Rec: 08/11/19 10:07 AW [email or web address]) Cardio Equipment Recumbent Elliptical (Biodex) Duration (Minutes) 5 Resistance 1 Seat Position 10 Therapeutic Exercises Standing Exercises 1 Standing Exercise Name resisted side-stepping Side bilateral Resistance yellow band/loop Reps/Minutes 10 ft each direction x 5 Comments seated rest breaks between laps; sent pt home with level 2 band Neuro Re-Education Treatment Balance Activities 4 Details staggered stance Surface level Reps/Duration 5 minutes Comments EO, EC. Pt less steady with left foot forward 3 Details tandem stance Surface level Reps/Duration 1 minute Comments pt required UE support to assume position, which was too challenging; discontinued 2 Details narrow stance on foam Surface foam Equipment 2 blue foam Reps/Duration 3 minutes Comments EO, EC; very challenging with EC 1 Details narrow stance Surface firm Reps/Duration 3 minutes Comments EO, EC, head turns, nods Self-Care/Home Management Treatment Education Patient Education Home Exercise Program Other Education 1. Narrow stance 2. Narrow stance with head turns and nods 3. Side-stepping at countertop with level 2 band PT-OP-T Assessment and Plan Start: 07/28/19 14:49 Freq: Status: Active Protocol: Document 08/11/19 09:46 AW (Rec: 08/11/19 10:07 AW [email or web address]) Physical Therapy Assessment Goals 5 Impairment Pt scores 18.65 on modified TUG (SPC in RUE, cup of water in LUE) Short Term Goal (STG) Pt will score 15 seconds or less on modified TUG to demontrate decreased falls risk/increased confidence with dual task mobility. STG Duration 09/01/19 Alf Goal (LTG) Pt will score 12 seconds or less on modified TUG to demontrate decreased falls risk/increased confidence with dual task mobility. LTG Duration 09/22/19 4 Impairment Difficulty carrying gallons of paint while walking at work Short Term Goal (STG) Pt will carry gallon of paint at work with >50% confidence STG Duration 08/25/19 Alf Goal (LTG) Pt to carry gallon of paint at work with 70% confidence or greater LTG Duration 09/22/19 3 Impairment Pt with great difficulty getting up from the floor Short Term Goal (STG) Pt will verbalize and demonstrate floor recovery techniques up to half-kneeling SBA STG Duration 08/25/19 Thiokol Operator Goal (LTG) Pt will verbalize and demonstrate floor recovery techniques to full standing position SBA LTG Duration 09/22/19 2 Impairment Pt scored 34 on Activities- Specific Balance Confidence Scale. Short Term Goal (STG) Pt to score 45 on ABC for improved self-efficacy with mobility. STG Duration 08/25/19 Alf Goal (LTG) Pt to score 55 or greater on ABC for improved self-efficacy . LTG Duration 09/22/19 1 Impairment Pt scored 15/24 on DGI. Short Term Goal (STG) Pt to score 19/24 on DGI to demonstrate decreased risk of falls STG Duration 08/25/19 Alf Goal (LTG) Pt to score 22/24 on DGI for decreased risk of falls LTG Duration 09/22/19 Progress Towards Goals Progress Towards Goals Slow Progress due to Attendance Issues Progress Comments Pt had to cancel two appointments due to shortness of breath which is being addressed by Dr. Najera Assessment Summary Assessment Pt tolerated ther ex and balance activities well, maintaining SpO2 96-98%. He reported mild SOB at end of cardio exercise which resolved quickly. Pt shows good effort but did require multiple seated rest breaks. He is using his SPC full-time but tends to carry it frequently. His fear of falling contributes to his fall risk. Therapy will focus on increasing Bill's confidence with balance and ambulation to mitigate that risk. Pt scored 17.55 seconds on Timed Up and Go using SPC; 18. 65 seconds on same test using SPC while also carrying a cup of water in his left hand. Scores confirm higher risk of falling. Modified CTSIB: I: 30 seconds II: 3 seconds, 7 seconds, 30 seconds III: 30 seconds IV: 8 seconds, 9 seconds, 3 seconds, 4 seconds Score: 99/120 Physical Therapy Plan Next Visit Focus/Plan Next Visit Plan Review HEP, add balance exercise and hip strengthening exercise. Progress both ther ex and balance activities as tolerated
== END 2019-08-12 12:41 ==
LOC: PHYS 09:00
PROVIDERS: PCP Family Medicine; Visit Provider Family Medicine
DX: E11.42 Type 2 diabetes mellitus with diabetic polyneuropathy (principal); Z91.81 History of falling
CPT/HCPCS: 97110; 97112; 97162

== ENCOUNTER → 2019-08-16 11:51 | Outpatient (CLI) | payer MEDICARE, SELFPAY ==
--- NOTE | 2019-08-16 | DI.RAD.S_ITS ---
PROCEDURE: XR CHEST 2V INDICATIONS: DYSPNEA TECHNIQUE: 2 views of the chest were acquired. COMPARISON: [facility], CR, XR CHEST 2V, 08/02/2019, 11:59. FINDINGS: Surgical changes and devices: None. Lungs and pleura: The large left pleural effusion has increased since the prior study with compressive atelectasis of the left lower lobe. The right lung is grossly clear. Mediastinum: Mediastinal contours are normal. The heart is obscured by subjacent process in the left hemithorax. Bones and chest wall: No suspicious bony abnormalities. Soft tissues appear unremarkable. IMPRESSION: Interval increase in large left pleural effusion with associated compressive atelectasis. Dictated by: Jostin Taylor M.D. on 08/16/2019 at 12:04 Approved by: Jostin Taylor M.D. on 08/16/2019 at 12:06
== END ==
PROVIDERS: PCP Family Medicine; Visit Provider Family Medicine
DX: R06.00 Dyspnea, unspecified (principal); J90 Pleural effusion, not elsewhere classified; J98.11 Atelectasis
CPT/HCPCS: 71046

== ENCOUNTER → 2019-08-19 11:24 | Outpatient (CLI) | payer MEDICARE, SELFPAY ==
--- NOTE | 2019-08-19 11:30 | DI.CT.S_ITS ---
PROCEDURE: CT CHEST WO CON INDICATIONS: Pleural effusion, not elsewhere classified TECHNIQUE: Noncontrast 5 mm thick sections acquired from the pulmonary apices to the posterior costophrenic angles. 1 mm lung window, 5 mm thick coronal and sagittal and 7 mm axial MIP reformats were then acquired. For radiation dose reduction, the following was used: automated exposure control, adjustment of mA and/or kV according to patient size. COMPARISON: [facility], CR, XR CHEST 1V, 04/10/2019, 5:48. [facility], CR, XR CHEST 2V, 08/02/2019, 11:59. [facility], CR, XR CHEST 2V, 08/16/2019, 11:52. [facility], CT, CT CHEST WO CON, 04/08/2019, 21:46. FINDINGS: Image quality: Excellent. Lungs and pleura: Large left pleural effusion with adjacent atelectasis. No pneumothorax. No right pleural fluid identified. The right lung appears clear. Mediastinum: Heart size is normal. Coronary artery calcifications are present. No pericardial effusion. No mediastinal adenopathy by size criteria. Thoracic aorta and central pulmonary arteries are normal in size. Esophagus is normal in caliber. No hiatal hernia. Bones and chest wall: Multiple left rib fractures are grossly unchanged in alignment, although demonstrating interval callus formation. Abdomen: Incidental 4 mm gallstone. There is also punctate gallbladder wall calcification of the fundus. IMPRESSION: Large left pleural effusion with adjacent atelectasis. This is probably unchanged since 08/16/19 however increased over time dating back to more remote studies including 04/08/19 Coronary artery disease. Multiple left rib fractures as before with callus formation. Incidental cholelithiasis. Dictated by: Jean Claude Webster M.D. on 08/19/2019 at 11:51 Approved by: Jean Claude Webster M.D. on 08/19/2019 at 11:57
== END ==
PROVIDERS: PCP Family Medicine; Visit Provider Family Medicine
DX: J90 Pleural effusion, not elsewhere classified (principal); J98.11 Atelectasis; I25.10 Atherosclerotic heart disease of native coronary artery without angina pectoris; K80.20 Calculus of gallbladder without cholecystitis without obstruction
CPT/HCPCS: 71250

== ENCOUNTER → 2019-08-30 07:14 | Outpatient (CLI) | payer MEDICARE, SELFPAY ==
--- NOTE | 2019-08-30 | DI.RAD.S_ITS ---
PROCEDURE: XR CHEST 1V INDICATIONS: Post left thoracentesis. TECHNIQUE: One view of the chest was acquired. COMPARISON: [facility], CR, XR CHEST 2V, 08/16/2019, 11:52. CT chest 08/19/2019. FINDINGS: Surgical changes and devices: None. Lungs and pleura: Left basilar consolidation, decreased. Increased interstitial markings. Moderate size left pleural effusion, decreased. No pleural effusion on the right. No pneumothorax. Mediastinum: Mediastinal contours appear normal. Heart size is normal. Bones and chest wall: No suspicious bony lesions. Multiple left-sided rib fractures. Overlying soft tissues appear unremarkable. IMPRESSION: 1. No pneumothorax post left-sided thoracentesis. 2. Moderate sized residual left pleural effusion. 3. Left lung base consolidation is decreased. Favor compressive atelectasis. Recommend followup to resolution. Dictated by: Gavin Lemos M.D. on 08/30/2019 at 9:15 Approved by: Gavin Lemos M.D. on 08/30/2019 at 9:19
--- NOTE | 2019-08-30 | PATH_ITS ---
Note [facility] Accession Number: [id number] TESTS RESULT FLAG UNITS REF RANGE LAB Clinician Provided Cytology Information No. of containers..01 Other (Miscellaneous) LEFT PLEURAL EFFUSIO DIAGNOSIS: LEFT PLEURAL EFFUSION NEGATIVE FOR MALIGNANT CELLS. Pathologist ICD10: 02 J90 02 Jaziel Esqueda MD, PhD, Pathologist NPI- [id number] Tyler Dickey, Panel Builder ([facility]) 01 60 CC, RED, CLOUDY /LCS 11/16/1840 0000 Local FLAG LEGEND: L-Low Normal,H-High Normal,LL-Alert Low,HH-Alert High <-Panic Low,>-Panic High,A-Abnormal,AA-Critical Abnormal Performed at: 01 =Z [facility] [address], [place] [address] Griffin Gordon MD, 02 [facility] [address] [place] [id number] Taniya Stringer MD, Performed at: 01 [facility] [address], [place], [place] [id number] MD Griffin Gordon MD Phone: [phone]
--- NOTE | 2019-08-30 | DI.US.S_ITS ---
PROCEDURE: US THORACENTESIS INDICATIONS: LARGE LEFT PLEURAL EFFUSION TECHNIQUE: The indications, alternatives, benefits, risks, and complications of the procedure were explained to the patient. Written informed consent was obtained and placed in the chart. The chest was examined sonographically, and an appropriate site was chosen for thoracentesis. The skin was prepared and draped in the usual sterile fashion, and 1% lidocaine was infiltrated from the skin down through the pleural surface. A 19-gauge catheter-covered needle was then introduced into the pleural space, the catheter was advanced and the needle was withdrawn, and thereafter pleural fluid was aspirated. The catheter was then removed and a dressing was applied. COMPARISON: CT chest 08/19/2019. FINDINGS: Access site: Left hemithorax. Needle: One-Step centesis catheter with introducer needle. Fluid volume and description: 2800 cc removed of dark straw-colored pleural fluid. Fluid sent for diagnostic testing: Obtained and sent. Medications: 1% lidocaine for local anaesthesia. Complications: None; post-procedural chest radiograph is pending to assess for pneumothorax. IMPRESSION: Successful ultrasound-guided left thoracentesis. 2.8 L removed of dark straw-colored pleural fluid. Dictated by: Gavin Lemos M.D. on 08/30/2019 at 9:13 Approved by: Gavin Lemos M.D. on 08/30/2019 at 9:15
[2019-08-30 09:44] LABS: Glucose Body Fluid 85 mg/dL; Total Protein Body Fluid 4.9 g/dL
[2019-08-30 10:49] LABS: Body Fluid Appearance HAZY; Body Fluid Clotted? NO CLOTS PRESENT; Body Fluid Color YELLOW
[2019-08-30 10:50] LABS: Mononuclear WBC Body Fluid 95 %; Polynuclear WBC Body Fluid 5 %
[2019-08-30 10:52] LABS: Body Fluid Red Blood Cells 15651 /uL; Body Fluid Tot Nucleated Cells 377 /uL
== END ==
PROVIDERS: PCP Family Medicine; Visit Provider Family Medicine
DX: J90 Pleural effusion, not elsewhere classified (principal)
CPT/HCPCS: 32555; 71045; 82945; 84157; 89051

== ENCOUNTER → 2019-10-15 07:42 | Outpatient (CLI) | payer MEDICARE, SELFPAY ==
[2019-10-15 08:58] LABS: Alanine Aminotransferase 26 IU/L (<50); Albumin 4.5 g/dL (3.5-5.0); Albumin Globulin Ratio 1.3 (1.0-2.8); Alkaline Phosphatase 69 U/L (38-126); Aspartate Aminotransferase 37 IU/L (17-59); Bilirubin Total 1.2 mg/dL (0.2-1.3); Blood Urea Nitrogen 17 mg/dL (9-20); Calcium 9.9 mg/dL (8.4-10.2); Carbon Dioxide 32 mmol/L (22-32); Chloride 97 mmol/L (98-107); Cholesterol 263 mg/dL (140-199); Estimated Glomerular Filt Rate > 60.0 mL/min (>60); Globulin 3.5 g/dL (1.7-4.1); Glucose 137 mg/dL (80-110); HDL Cholesterol 42 mg/dL (40-60); HEMOLYSIS < 15 (0-50); LDL Cholesterol Calculated 179 mg/dL (<100); Potassium 3.9 mmol/L (3.4-5.1); Sodium 138 mmol/L (137-145); Triglycerides 211 mg/dL (35-150); VLDL Cholesterol Calculated 42 mg/dL (2-30)
[2019-10-15 09:07] LABS: Hemoglobin A1C% w Est Avg Glu 5.5 % (4.0-6.0)
[2019-10-15 09:27] LABS: Creatinine Urine Random 94.1 mg/dL
[2019-10-15 09:33] LABS: Microalbumi Creatinin Ratio Ur 28.6 ug/mg CR (<30); Microalbumin Urine Random 2.7 mg/dL (0-1.6)
== END ==
PROVIDERS: PCP Family Medicine; Visit Provider Family Medicine
DX: E11.42 Type 2 diabetes mellitus with diabetic polyneuropathy (principal); E11.319 Type 2 diabetes mellitus with unspecified diabetic retinopathy without macular edema
CPT/HCPCS: 36415; 80053; 80061; 82043; 82570; 83036

== ENCOUNTER 2020-01-11 08:15 | Outpatient (RCR) | payer MEDICARE, SELFPAY ==
--- NOTE | 2019-12-20 12:00 | PT.OIE ---
Current Diagnoses Muscle weakness (generalized) (12/20/19) Other abnormalities of gait and mobility (12/20/19) Unspecified lack of coordination (12/20/19) History of falling (12/20/19) Past Medical History (Last Reviewed 04/09/19 @ 05:35 by Liu Saleem MD) BPH (benign prostatic hyperplasia) (Acute) Diabetes (Acute) Hyperlipidemia (Acute) Hypertension (Acute) Skin cancer (Acute) Past Surgical History (Last Reviewed 04/09/19 @ 05:35 by Liu Saleem MD) H/O cataract removal with insertion of prosthetic lens (Acute) No pertinent past surgical history (Acute) Visit Care Team Role Provider Type Dc Najera MD Attending Provider Physician Primary Care Provider Referring Provider Specialty: [facility] Address: [address] [place] [address], [facility] Email: [email or web address] Physical Therapy Initial Evaluation PT-OP-A Visit Information Start: 12/21/19 09:33 Freq: Status: Active Protocol: Document 12/20/19 11:15 DCW (Rec: 12/21/19 10:14 DC [id number]) Out-Patient Physical Therapy Visit Information Visit Information Visit Type Initial Evaluation Visit Start Time 11:15 Visit Stop Time 12:00 Total Visit Minutes 45 Visit Number 1 Number of CORE ANALYST Visits 0 Evaluation Information Evaluation Date 12/20/19 PT-OP-B Current Condition Start: 12/21/19 09:33 Freq: Status: Active Protocol: Document 12/20/19 11:15 DCW (Rec: 12/21/19 10:14 DC [id number]) Current Condition History of Current Condition Onset Date Multi-year history Current Complaints Hx of falls, neuropathy, imbalance History of Current Condition Pt is a 79 year old male with a multi-year history of peripheral neuropathy. Pt reports his neuropathy has been rapidly worsening, and after meeting with a neurologist recently, they were surprised at the severity of neuropathy, because his DM is so well controlled. Pt ambulates around the community using a SPC, although he often just carries the cane, and just feels better with having it, just in case. Pt reports his goal is to put off using a walker as long as possible. Pt has had two big falls over the past ~year, one where he was going up stairs carrying a grocery bag, which was swinging, pulled him away from the rail, and caused him to fall backward down three steps, breaking five ribs. The second fall occurred when he leaned onto the armrest of a plastic lawn chair, which snapped, causing him to fall and scrape up his face. 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 Prior Treatments and Tests Prior history of PT following hospitalization after his rib fractures. Pt was also briefly seen at this facility last year for two visits, however he stopped attending after the unfortunate unexpected passing of his daughter. Treatment Goals Patient/Caregiver Goals Pt reports that it is pretty much impossible for him to get up off the floor, and he has had increased difficulty even getting out of a chair. Personal Factors Other Personal Factors That May Effect Hx of DM II, peripheral Therapy/Recovery neuropathy, OA, and melanoma PT-OP-C Subjective Start: 12/21/19 09:33 Freq: Status: Active Protocol: Document 12/20/19 11:15 DCW (Rec: 12/21/19 10:14 DCW [id number]) OP-PT Subjective Patient Comments Patient Comments I want to put off using a walker as long as I can. Patient Reported Progress Worse Patient Questionnaires ABC- Activity Specific Balance Confidence Scale ABC Score 70% ABC Functional Impairment 20 to <40% Impaired (Score 61- 80) OP-PT Pain Assessment Pain Assessment Grid Paper Pain Assessment Grid Completed No: N/A PT-OP-D Balance Start: 12/21/19 09:33 Freq: Status: Active Protocol: Document 12/20/19 11:15 DCW (Rec: 12/21/19 10:14 DCW [id number]) OP-PT Balance Assessment Sitting Balance Static Sitting Balance Ability Normal Dynamic Sitting Balance Ability Normal Standing Balance Static Standing Balance Ability Fair Dynamic Standing Balance Ability Fair Balance Tests Steen Balance Test Steen Balance Test Score 41 Steen Impairment Rating 20 to 39% Impaired (Score 34- 44) Steen Balance Assessment Evaluation Sitting to Standing Ability Independent w/out Hands Unsupported Stance Safely- 2 minutes Sitting Unsupported, Feet on Floor Safely- 2 minutes Standing to Sitting Ability Safely, Minimal Hand Use Transfer Ability Safely, Minimal Hand Use Unsupported Stance- Eyes Closed Supervision, 10 seconds Unsupported Stance- Eyes Open Supervision to maintain Reaching Forward Standing Safely, 5 inches Pick- Up Object From Floor Supervision Look Behind Shoulder - Standing Shifts Weight Unilateral Turning 360 Degrees Turns , < 4 secs Unsupported Stance, Alternating Feet on Assist to Prevent Fall Stair Unsupported Tandem Stance Small Step- 30 seconds Unilateral Leg Stance Lifts Leg/Unable to Hold Total Score Steen Total Score (out of 56 points) 41 Steen Impairment Rating 20 to 39% Impaired (Score 34- 44) Banks Fall Scale Copyright Permission PT-OP-E Functional Tests Start: 12/21/19 09:33 Freq: Status: Active Protocol: Document 12/20/19 11:15 DCW (Rec: 12/21/19 10:15 DCW [id number]) Functional Tests Dynamic Gait Index (DGI) Score 15/24 DGI Impairment Rating 20 to <40% Impaired (Score 15- 19) PT-OP-M Strength Start: 12/21/19 09:33 Freq: Status: Active Protocol: Document 12/20/19 11:15 DCW (Rec: 12/21/19 10:14 DCW [id number]) Hip Strength Hip Manual Muscle Testing Right Flexion (L2) 4 Good Abduction 3+ Fair+ Adduction 3- Fair- External Rotation 4- Good- Internal Rotation 4 Good Left Flexion (L2) 4- Good- Abduction 3 Fair Adduction 3- Fair- External Rotation 4+ Good+ Internal Rotation 4 Good Knee Strength Knee Manual Muscle Testing Right Flexion (S2) 4 Good Extension (L3) 5 Normal Left Flexion (S2) 4 Good Extension (L3) 5 Normal Ankle/Foot Strength Ankle and Foot Manual Muscle Testing Right Dorsiflexion (L4) 4- Good- Plantarflexion (S1) 3+ Fair+ Left Dorsiflexion (L4) 4- Good- Plantarflexion (S1) 4 Good PT-OP-T Assessment and Plan Start: 12/21/19 09:33 Freq: Status: Active Protocol: Document 12/20/19 11:15 DCW (Rec: 12/21/19 10:14 DCW [id number]) Physical Therapy Assessment Rehab Potential Rehabilitation Potential Good Evaluation Complexity Number of Personal Factors/Comorbidities 3 or More Number of Body Systems Impaired 3 Clinical Presentation at Evaluation Unstable Impairments Impairments Activity Tolerance,Balance, Functional Mobility,Strength, Transfers Goals 3 Impairment Pt with great difficulty getting up from the floor Short Term Goal (STG) Pt will verbalize and demonstrate floor recovery techniques up to half-kneeling SBA STG Duration 01/18/20 Gun Mechanic Goal (LTG) Pt will verbalize and demonstrate floor recovery techniques to full standing position SBA LTG Duration 02/18/20 2 Impairment Pt scored 41/56 on Steen Balance Scale Short Term Goal (STG) Pt to score 45/56 on Steen to demonstrate decreased falls risk STG Duration 01/31/20 Gun Mechanic Goal (LTG) Pt to score 50/56 on Steen to demonstrate decreased falls risk LTG Duration 03/13/20 1 Impairment Pt scored 15/24 on DGI. Short Term Goal (STG) Pt to score 19/24 on DGI to demonstrate decreased risk of falls STG Duration 01/31/20 Gun Mechanic Goal (LTG) Pt to score 22/24 on DGI for decreased risk of falls LTG Duration 03/13/20 Assessment Summary Assessment Pt presents with decreased static and dynamic balance. Pt is at an increased falls risk per his score on both the Steen Balance scale (41/56) and the Dynamic Gait Index (15/24 ). Pt has difficulty with sit- >stand transfers, and shows weakness in his bilateral lower extremities. Unfortunately, pt's neuropathy is unlikely to improve through physical therapy, however he should still greatly benefit from physical therapy focused on improving his LE strength, practicing hip and ankle strategies, practicing sit->stand and floor->stand transfers, and balance training. Physical Therapy Plan Frequency and Duration Frequency of Treatment 2x/Week Duration of Treatment 12 weeks Plan of Care Start Date 12/20/19 Plan of Care End Date 03/13/20 Therapeutic Interventions Therapeutic Interventions Aquatic Therapy,Balance Training,Coordination Training ,Gait Training,Home Exercise Program,Neuromuscular Re- education,Patient/Caregiver Education,Self-Care/Home Management,Therapeutic Exercises Next Visit Focus/Plan Next Note Type Treatment Note Next Visit Plan May want to perform further balance testing, including TUG , and practicing floor->stand transfers. Also include LE strengthening and balance training
--- NOTE | 2019-12-20 12:00 | PT.OPPOC ---
Physical, Occupational & Speech Therapy At [facility] Current Diagnoses Muscle weakness (generalized) (12/20/19) Other abnormalities of gait and mobility (12/20/19) Unspecified lack of coordination (12/20/19) History of falling (12/20/19) Visit Care Team Role Provider Type Dc Najera MD Attending Provider Physician Primary Care Provider Referring Provider Specialty: [facility] Address: [address] [place] [address] [place], [facility] Email: [email or web address] Plan Of Care PT-OP-T Assessment and Plan Start: 12/21/19 09:33 Freq: Status: Active Protocol: Document 12/20/19 11:15 DCW (Rec: 12/21/19 10:14 DCW [id number]) Physical Therapy Assessment Rehab Potential Rehabilitation Potential Good Evaluation Complexity Number of Personal Factors/Comorbidities 3 or More Number of Body Systems Impaired 3 Clinical Presentation at Evaluation Unstable Impairments Impairments Activity Tolerance,Balance, Functional Mobility,Strength, Transfers Goals 3 Impairment Pt with great difficulty getting up from the floor Short Term Goal (STG) Pt will verbalize and demonstrate floor recovery techniques up to half-kneeling SBA STG Duration 01/18/20 Senior Care Goal (LTG) Pt will verbalize and demonstrate floor recovery techniques to full standing position SBA LTG Duration 02/18/20 2 Impairment Pt scored 41/56 on Steen Balance Scale Short Term Goal (STG) Pt to score 45/56 on Steen to demonstrate decreased falls risk STG Duration 01/31/20 [employer] Operation Goal (LTG) Pt to score 50/56 on Steen to demonstrate decreased falls risk LTG Duration 03/13/20 1 Impairment Pt scored 15/24 on DGI. Short Term Goal (STG) Pt to score 19/24 on DGI to demonstrate decreased risk of falls STG Duration 01/31/20 [employer] Operation Goal (LTG) Pt to score 22/24 on DGI for decreased risk of falls LTG Duration 03/13/20 Assessment Summary Assessment Pt presents with decreased static and dynamic balance. Pt is at an increased falls risk per his score on both the Steen Balance scale (41/56) and the Dynamic Gait Index (15/24 ). Pt has difficulty with sit- >stand transfers, and shows weakness in his bilateral lower extremities. Unfortunately, pt's neuropathy is unlikely to improve through physical therapy, however he should still greatly benefit from physical therapy focused on improving his LE strength, practicing hip and ankle strategies, practicing sit->stand and floor->stand transfers, and balance training. Physical Therapy Plan Frequency and Duration Frequency of Treatment 2x/Week Duration of Treatment 12 weeks Plan of Care Start Date 12/20/19 Plan of Care End Date 03/13/20 Therapeutic Interventions Therapeutic Interventions Aquatic Therapy,Balance Training,Coordination Training ,Gait Training,Home Exercise Program,Neuromuscular Re- education,Patient/Caregiver Education,Self-Care/Home Management,Therapeutic Exercises Next Visit Focus/Plan Next Note Type Treatment Note Next Visit Plan May want to perform further balance testing, including TUG , and practicing floor->stand transfers. Also include LE strengthening and balance training Plan of Care Dates Plan of Care Start Date 12/20/19 Plan of Care End Date 03/13/20 Electronically Signed by: John Osorio, PT 12/21/19 1015 Please Sign and Return: I have reviewed this Plan of Care and certify that the skilled therapy services above are required to meet the patient?s needs. Physician Signature Date Printed Name and Credentials Clinical Instructor Signature Printed Name and Credentials
--- NOTE | 2020-01-05 10:35 | PT.OTN ---
Current Diagnoses Muscle weakness (generalized) (01/05/20) Other abnormalities of gait and mobility (01/05/20) Unspecified lack of coordination (01/05/20) History of falling (01/05/20) Physical Therapy Treatment Note PT-OP-A Visit Information Start: 12/21/19 09:33 Freq: Status: Active Protocol: Document 01/05/20 09:51 SP (Rec: 01/05/20 10:55 SP [id number]) Out-Patient Physical Therapy Visit Information Visit Information Visit Type Treatment Note Visit Start Time 09:51 Visit Stop Time 10:35 Total Visit Minutes 44 Visit Number 2 Number of GROUP SALES COORDINATOR Visits 1 PT-OP-B Current Condition Start: 12/21/19 09:33 Freq: Status: Active Protocol: Document 12/20/19 11:15 DCW (Rec: 12/21/19 10:14 DCW [id number]) Current Condition History of Current Condition Onset Date Multi-year history Current Complaints Hx of falls, neuropathy, imbalance History of Current Condition Pt is a 79 year old male with a multi-year history of peripheral neuropathy. Pt reports his neuropathy has been rapidly worsening, and after meeting with a neurologist recently, they were surprised at the severity of neuropathy, because his DM is so well controlled. Pt ambulates around the community using a SPC, although he often just carries the cane, and just feels better with having it, just in case. Pt reports his goal is to put off using a walker as long as possible. Pt has had two big falls over the past ~year, one where he was going up stairs carrying a grocery bag, which was swinging, pulled him away from the rail, and caused him to fall backward down three steps, breaking five ribs. The second fall occurred when he leaned onto the armrest of a plastic lawn chair, which snapped, causing him to fall and scrape up his face. 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 Prior Treatments and Tests Prior history of PT following hospitalization after his rib fractures. Pt was also briefly seen at this facility last year for two visits, however he stopped attending after the unfortunate unexpected passing of his daughter. Treatment Goals Patient/Caregiver Goals Pt reports that it is pretty much impossible for him to get up off the floor, and he has had increased difficulty even getting out of a chair. Personal Factors Other Personal Factors That May Effect Hx of DM II, peripheral Therapy/Recovery neuropathy, OA, and melanoma PT-OP-C Subjective Start: 12/21/19 09:33 Freq: Status: Active Protocol: Document 01/05/20 09:51 SP (Rec: 01/05/20 10:55 SP [id number]) OP-PT Subjective Patient Comments Patient Comments Pt stated havign 5/10 annoying L posterolateral thigh pain pre PT. Pt stated mostly gets when stands up after sitting a while and noticed more since the wet weather days. Pt states uses SPC at times when tires out longer distances or at work if needed. PT-OP-D Balance Start: 12/21/19 09:33 Freq: Status: Active Protocol: Document 12/20/19 11:15 DCW (Rec: 12/21/19 10:14 DCW [id number]) OP-PT Balance Assessment Sitting Balance Static Sitting Balance Ability Normal Dynamic Sitting Balance Ability Normal Standing Balance Static Standing Balance Ability Fair Dynamic Standing Balance Ability Fair Balance Tests Steen Balance Test Steen Balance Test Score 41 Steen Impairment Rating 20 to 39% Impaired (Score 34- 44) Steen Balance Assessment Evaluation Sitting to Standing Ability Independent w/out Hands Unsupported Stance Safely- 2 minutes Sitting Unsupported, Feet on Floor Safely- 2 minutes Standing to Sitting Ability Safely, Minimal Hand Use Transfer Ability Safely, Minimal Hand Use Unsupported Stance- Eyes Closed Supervision, 10 seconds Unsupported Stance- Eyes Open Supervision to maintain Reaching Forward Standing Safely, 5 inches Pick- Up Object From Floor Supervision Look Behind Shoulder - Standing Shifts Weight Unilateral Turning 360 Degrees Turns , < 4 secs Unsupported Stance, Alternating Feet on Assist to Prevent Fall Stair Unsupported Tandem Stance Small Step- 30 seconds Unilateral Leg Stance Lifts Leg/Unable to Hold Total Score Steen Total Score (out of 56 points) 41 Steen Impairment Rating 20 to 39% Impaired (Score 34- 44) Banks Fall Scale Copyright Permission PT-OP-E Functional Tests Start: 12/21/19 09:33 Freq: Status: Active Protocol: Document 12/20/19 11:15 DCW (Rec: 12/21/19 10:15 DCW [id number]) Functional Tests Dynamic Gait Index (DGI) Score 15/24 DGI Impairment Rating 20 to <40% Impaired (Score 15- 19) PT-OP-M Strength Start: 12/21/19 09:33 Freq: Status: Active Protocol: Document 12/20/19 11:15 DCW (Rec: 12/21/19 10:14 DCW [id number]) Hip Strength Hip Manual Muscle Testing Right Flexion (L2) 4 Good Abduction 3+ Fair+ Adduction 3- Fair- External Rotation 4- Good- Internal Rotation 4 Good Left Flexion (L2) 4- Good- Abduction 3 Fair Adduction 3- Fair- External Rotation 4+ Good+ Internal Rotation 4 Good Knee Strength Knee Manual Muscle Testing Right Flexion (S2) 4 Good Extension (L3) 5 Normal Left Flexion (S2) 4 Good Extension (L3) 5 Normal Ankle/Foot Strength Ankle and Foot Manual Muscle Testing Right Dorsiflexion (L4) 4- Good- Plantarflexion (S1) 3+ Fair+ Left Dorsiflexion (L4) 4- Good- Plantarflexion (S1) 4 Good PT-OP-Q Treatments Start: 12/21/19 09:33 Freq: Status: Active Protocol: Document 01/05/20 09:51 SP (Rec: 01/05/20 10:55 SP [id number]) Cardio Equipment Recumbent Elliptical (Biodex) Duration (Minutes) 4 Resistance 3 Seat Position 7 Recumbent Bicycle Duration (Minutes) 3 Resistance 6 Seat Position 9 Therapeutic Exercises Sitting Exercises Hs stretch Reps/Minutes 60 sec x2 (3 positions) Standing Exercises sit to stands Standing Exercise Name arms across chest Equipment Used 18 chair Reps/Minutes x5 TUG , sit to stand testing Standing Exercise Name sit to stands: 5 reps in 15 sec, TUG 13 sec. 1 Standing Exercise Name resisted side stepping Resistance Tb #2 loop Equipment Used rail contact, cued upright posture Reps/Minutes 20 ft x1 lap Comments add HEP Neuro Re-Education Treatment Balance Activities NBOS, stagger Details add HEP Surface floor Equipment corner back, chair front Reps/Duration 3 sets each up to 30 sec each position Comments NBOS & stagger stance without and with head turns (cued slow pacing turn and look at target to assist stability). PT-OP-T Assessment and Plan Start: 12/21/19 09:33 Freq: Status: Active Protocol: Document 01/05/20 09:51 SP (Rec: 01/05/20 10:55 SP [id number]) Physical Therapy Assessment Goals 5 Impairment Pt scores 18.65 on modified TUG (SPC in RUE, cup of water in LUE) Short Term Goal (STG) Pt will score 15 seconds or less on modified TUG to demontrate decreased falls risk/increased confidence with dual task mobility. STG Duration 09/01/19 Shelter Goal (LTG) Pt will score 12 seconds or less on modified TUG to demontrate decreased falls risk/increased confidence with dual task mobility. LTG Duration 09/22/19 4 Impairment Difficulty carrying gallons of paint while walking at work Short Term Goal (STG) Pt will carry gallon of paint at work with >50% confidence STG Duration 08/25/19 [place] Man Goal (LTG) Pt to carry gallon of paint at work with 70% confidence or greater LTG Duration 09/22/19 3 Impairment Pt with great difficulty getting up from the floor Short Term Goal (STG) Pt will verbalize and demonstrate floor recovery techniques up to half-kneeling SBA STG Duration 01/18/20 [place] Man Goal (LTG) Pt will verbalize and demonstrate floor recovery techniques to full standing position SBA LTG Duration 02/18/20 2 Impairment Pt scored 41/56 on Steen Balance Scale Short Term Goal (STG) Pt to score 45/56 on Steen to demonstrate decreased falls risk STG Duration 01/31/20 Shelter Goal (LTG) Pt to score 50/56 on Steen to demonstrate decreased falls risk LTG Duration 03/13/20 1 Impairment Pt scored 15/24 on DGI. Short Term Goal (STG) Pt to score 19/24 on DGI to demonstrate decreased risk of falls STG Duration 01/31/20 Shelter Goal (LTG) Pt to score 22/24 on DGI for decreased risk of falls LTG Duration 03/13/20 Assessment Summary Assessment Pt tolerated tx well, discussed use of recumbent bike has at home if beneficial to keep, wants it to go . GROUP SALES COORDINATOR/ PT stated it is cardio but can up resistance with slower pacing for strengthening benefits. Tx assessed baseline TUG and 5 rep sit to stand testing and bike warm up and added new HEP : sit to stands, band walk, tandem/stagger stance and HS stretching to assist progress in flexibility of HS tightness , strength and balance self application outside of PT. HS stretch feels good end of tx and feels little better, theses activities seem like a good start. Physical Therapy Plan Frequency and Duration Frequency of Treatment 2x/Week Duration of Treatment 12 weeks Plan of Care Start Date 12/20/19 Plan of Care End Date 03/13/20 Therapeutic Interventions Therapeutic Interventions Aquatic Therapy,Balance Training,Coordination Training ,Gait Training,Home Exercise Program,Neuromuscular Re- education,Patient/Caregiver Education,Self-Care/Home Management,Therapeutic Exercises Next Visit Focus/Plan Next Note Type Treatment Note Next Visit Plan Assess resonse to last tx: TUG testing, sit to stand testing and added HEP: tandem/stagger stance, sit to stands, band walk and HS stretching. Next tx add: supine SLR, side abd, step ups/downs to HEP and brunilda stepping to PT treatment. Continue per PT POC: practicing floor->stand transfers. Also include LE strengthening and balance training
--- NOTE | 2020-01-11 09:03 | PT.OTN ---
Current Diagnoses Muscle weakness (generalized) (01/11/20) Other abnormalities of gait and mobility (01/11/20) Unspecified lack of coordination (01/11/20) History of falling (01/11/20) Physical Therapy Treatment Note PT-OP-A Visit Information Start: 12/21/19 09:33 Freq: Status: Active Protocol: Document 01/11/20 08:17 SP (Rec: 01/11/20 11:49 SP [id number]) Out-Patient Physical Therapy Visit Information Visit Information Visit Type Treatment Note Visit Start Time 08:17 Visit Stop Time 09:03 Total Visit Minutes 46 Visit Number 3 Number of DOCKET CLERK Visits 2 PT-OP-B Current Condition Start: 12/21/19 09:33 Freq: Status: Active Protocol: Document 12/20/19 11:15 DCW (Rec: 12/21/19 10:14 DCW [id number]) Current Condition History of Current Condition Onset Date Multi-year history Current Complaints Hx of falls, neuropathy, imbalance History of Current Condition Pt is a 79 year old male with a multi-year history of peripheral neuropathy. Pt reports his neuropathy has been rapidly worsening, and after meeting with a neurologist recently, they were surprised at the severity of neuropathy, because his DM is so well controlled. Pt ambulates around the community using a SPC, although he often just carries the cane, and just feels better with having it, just in case. Pt reports his goal is to put off using a walker as long as possible. Pt has had two big falls over the past ~year, one where he was going up stairs carrying a grocery bag, which was swinging, pulled him away from the rail, and caused him to fall backward down three steps, breaking five ribs. The second fall occurred when he leaned onto the armrest of a plastic lawn chair, which snapped, causing him to fall and scrape up his face. 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 Prior Treatments and Tests Prior history of PT following hospitalization after his rib fractures. Pt was also briefly seen at this facility last year for two visits, however he stopped attending after the unfortunate unexpected passing of his daughter. Treatment Goals Patient/Caregiver Goals Pt reports that it is pretty much impossible for him to get up off the floor, and he has had increased difficulty even getting out of a chair. Personal Factors Other Personal Factors That May Effect Hx of DM II, peripheral Therapy/Recovery neuropathy, OA, and melanoma PT-OP-C Subjective Start: 12/21/19 09:33 Freq: Status: Active Protocol: Document 01/11/20 08:17 SP (Rec: 01/11/20 11:49 SP [id number]) OP-PT Subjective Patient Comments Patient Comments Pt stated usually little stiff in the morning and pre PT today. Pt stated compliant with HEP, feels sit to stands without UE assist is better. Pt stated didn't like the shuttle balance one of the last treatments not very good at but understand might be helpful. PT-OP-D Balance Start: 12/21/19 09:33 Freq: Status: Active Protocol: Document 12/20/19 11:15 DCW (Rec: 12/21/19 10:14 DCW [id number]) OP-PT Balance Assessment Sitting Balance Static Sitting Balance Ability Normal Dynamic Sitting Balance Ability Normal Standing Balance Static Standing Balance Ability Fair Dynamic Standing Balance Ability Fair Balance Tests Steen Balance Test Steen Balance Test Score 41 Steen Impairment Rating 20 to 39% Impaired (Score 34- 44) Steen Balance Assessment Evaluation Sitting to Standing Ability Independent w/out Hands Unsupported Stance Safely- 2 minutes Sitting Unsupported, Feet on Floor Safely- 2 minutes Standing to Sitting Ability Safely, Minimal Hand Use Transfer Ability Safely, Minimal Hand Use Unsupported Stance- Eyes Closed Supervision, 10 seconds Unsupported Stance- Eyes Open Supervision to maintain Reaching Forward Standing Safely, 5 inches Pick- Up Object From Floor Supervision Look Behind Shoulder - Standing Shifts Weight Unilateral Turning 360 Degrees Turns , < 4 secs Unsupported Stance, Alternating Feet on Assist to Prevent Fall Stair Unsupported Tandem Stance Small Step- 30 seconds Unilateral Leg Stance Lifts Leg/Unable to Hold Total Score Steen Total Score (out of 56 points) 41 Steen Impairment Rating 20 to 39% Impaired (Score 34- 44) Banks Fall Scale Copyright Permission PT-OP-E Functional Tests Start: 12/21/19 09:33 Freq: Status: Active Protocol: Document 12/20/19 11:15 DCW (Rec: 12/21/19 10:15 DCW [id number]) Functional Tests Dynamic Gait Index (DGI) Score 15/24 DGI Impairment Rating 20 to <40% Impaired (Score 15- 19) PT-OP-M Strength Start: 12/21/19 09:33 Freq: Status: Active Protocol: Document 12/20/19 11:15 DCW (Rec: 12/21/19 10:14 DCW [id number]) Hip Strength Hip Manual Muscle Testing Right Flexion (L2) 4 Good Abduction 3+ Fair+ Adduction 3- Fair- External Rotation 4- Good- Internal Rotation 4 Good Left Flexion (L2) 4- Good- Abduction 3 Fair Adduction 3- Fair- External Rotation 4+ Good+ Internal Rotation 4 Good Knee Strength Knee Manual Muscle Testing Right Flexion (S2) 4 Good Extension (L3) 5 Normal Left Flexion (S2) 4 Good Extension (L3) 5 Normal Ankle/Foot Strength Ankle and Foot Manual Muscle Testing Right Dorsiflexion (L4) 4- Good- Plantarflexion (S1) 3+ Fair+ Left Dorsiflexion (L4) 4- Good- Plantarflexion (S1) 4 Good PT-OP-Q Treatments Start: 12/21/19 09:33 Freq: Status: Active Protocol: Document 01/11/20 08:17 SP (Rec: 01/11/20 11:49 SP [id number]) Cardio Equipment Recumbent Bicycle Duration (Minutes) 6 Resistance 6 Seat Position 9 Therapeutic Exercises Supine Exercises bridge Reps/Minutes x10 SLR Reps/Minutes 2x10 Sidelying Exercises hip abd Reps/Minutes x10 Standing Exercises step up/down Equipment Used 6 step, 1 HR Reps/Minutes 2x5 leading each LE Neuro Re-Education Treatment Balance Activities NBOS, stagger Details REview HEP Surface floor Equipment corner back, chair front Reps/Duration 3 sets each up to 30 sec each position Comments NBOS & stagger stance without and with head turns and EC ( cued slow pacing turn and look at target to assist stability ). unable EC with RLE forward LOB and chair self recovery 4 Details brunilda stepping Equipment 3 hurdles x3 laps rail Comments step to and step over step patterning Other Activities on/off floor Details chair support Reps/Duration x1 reps Comments on/off floor 1/2kneel PT-OP-T Assessment and Plan Start: 12/21/19 09:33 Freq: Status: Active Protocol: Document 01/11/20 08:17 SP (Rec: 01/11/20 11:49 SP [id number]) Physical Therapy Assessment Goals 5 Impairment Pt scores 18.65 on modified TUG (SPC in RUE, cup of water in LUE) Short Term Goal (STG) Pt will score 15 seconds or less on modified TUG to demontrate decreased falls risk/increased confidence with dual task mobility. STG Duration 09/01/19 Correction Goal (LTG) Pt will score 12 seconds or less on modified TUG to demontrate decreased falls risk/increased confidence with dual task mobility. LTG Duration 09/22/19 4 Impairment Difficulty carrying gallons of paint while walking at work Short Term Goal (STG) Pt will carry gallon of paint at work with >50% confidence STG Duration 08/25/19 [employer] Goal (LTG) Pt to carry gallon of paint at work with 70% confidence or greater LTG Duration 09/22/19 3 Impairment Pt with great difficulty getting up from the floor Short Term Goal (STG) Pt will verbalize and demonstrate floor recovery techniques up to half-kneeling SBA STG Duration 01/18/20 Correction Goal (LTG) Pt will verbalize and demonstrate floor recovery techniques to full standing position SBA LTG Duration 02/18/20 2 Impairment Pt scored 41/56 on Steen Balance Scale Short Term Goal (STG) Pt to score 45/56 on Steen to demonstrate decreased falls risk STG Duration 01/31/20 [employer] Goal (LTG) Pt to score 50/56 on Steen to demonstrate decreased falls risk LTG Duration 03/13/20 1 Impairment Pt scored 15/24 on DGI. Short Term Goal (STG) Pt to score 19/24 on DGI to demonstrate decreased risk of falls STG Duration 01/31/20 [employer] Goal (LTG) Pt to score 22/24 on DGI for decreased risk of falls LTG Duration 03/13/20 Assessment Summary Assessment Pt tolerated tx well, added supine exercises to HEP for home progression in LE strength with positive feedback of good muscle workout soreness and step updowns with required 1 HR contact suupport for safety. Cued for slow COG over SARA, unableto perform with UE support at this time. Pt was ableto get on/ off floor with table contact support and suggested knee pad for comfort . Pt unableto perform without contact assist. Physical Therapy Plan Frequency and Duration Frequency of Treatment 2x/Week Duration of Treatment 12 weeks Plan of Care Start Date 12/20/19 Plan of Care End Date 03/13/20 Therapeutic Interventions Therapeutic Interventions Aquatic Therapy,Balance Training,Coordination Training ,Gait Training,Home Exercise Program,Neuromuscular Re- education,Patient/Caregiver Education,Self-Care/Home Management,Therapeutic Exercises Next Visit Focus/Plan Next Note Type Treatment Note Next Visit Plan Assess resonse to added supine and step exercises last tx to HEP no adverse affects end of tx. Next tx progress in balance activities. Continue per PT POC: practicing floor->stand transfers. Also include LE strengthening and balance training
--- NOTE | 2020-06-28 17:15 | PT.OPDS ---
Current Diagnoses Muscle weakness (generalized) (01/11/20) Other abnormalities of gait and mobility (01/11/20) Unspecified lack of coordination (01/11/20) History of falling (01/11/20) Visit Care Team Role Provider Type Dc Najera MD Attending Provider Physician Primary Care Provider Referring Provider Specialty: Family Practice Address: [address] [place] [address], [facility] [place], [address] Email: [email or web address] Visit Number Visit Number 3 Discharge Summary PT-OP-B Current Condition Start: 12/21/19 09:33 Freq: Status: Active Protocol: Document 12/20/19 11:15 DCW (Rec: 12/21/19 10:14 DCW [id number]) Current Condition History of Current Condition Onset Date Multi-year history Current Complaints Hx of falls, neuropathy, imbalance History of Current Condition Pt is a 79 year old male with a multi-year history of peripheral neuropathy. Pt reports his neuropathy has been rapidly worsening, and after meeting with a neurologist recently, they were surprised at the severity of neuropathy, because his DM is so well controlled. Pt ambulates around the community using a SPC, although he often just carries the cane, and just feels better with having it, just in case. Pt reports his goal is to put off using a walker as long as possible. Pt has had two big falls over the past ~year, one where he was going up stairs carrying a grocery bag, which was swinging, pulled him away from the rail, and caused him to fall backward down three steps, breaking five ribs. The second fall occurred when he leaned onto the armrest of a plastic lawn chair, which snapped, causing him to fall and scrape up his face. 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 Prior Treatments and Tests Prior history of PT following hospitalization after his rib fractures. Pt was also briefly seen at this facility last year for two visits, however he stopped attending after the unfortunate unexpected passing of his daughter. Treatment Goals Patient/Caregiver Goals Pt reports that it is pretty much impossible for him to get up off the floor, and he has had increased difficulty even getting out of a chair. Personal Factors Other Personal Factors That May Effect Hx of DM II, peripheral Therapy/Recovery neuropathy, OA, and melanoma PT-OP-C Subjective Start: 12/21/19 09:33 Freq: Status: Active Protocol: Document 01/11/20 08:17 SP (Rec: 01/11/20 11:49 SP [id number]) OP-PT Subjective Patient Comments Patient Comments Pt stated usually little stiff in the morning and pre PT today. Pt stated compliant with HEP, feels sit to stands without UE assist is better. Pt stated didn't like the shuttle balance one of the last treatments not very good at but understand might be helpful. PT-OP-D Balance Start: 12/21/19 09:33 Freq: Status: Active Protocol: Document 12/20/19 11:15 DCW (Rec: 12/21/19 10:14 DCW [id number]) OP-PT Balance Assessment Sitting Balance Static Sitting Balance Ability Normal Dynamic Sitting Balance Ability Normal Standing Balance Static Standing Balance Ability Fair Dynamic Standing Balance Ability Fair Balance Tests Steen Balance Test Steen Balance Test Score 41 Steen Impairment Rating 20 to 39% Impaired (Score 34- 44) Steen Balance Assessment Evaluation Sitting to Standing Ability Independent w/out Hands Unsupported Stance Safely- 2 minutes Sitting Unsupported, Feet on Floor Safely- 2 minutes Standing to Sitting Ability Safely, Minimal Hand Use Transfer Ability Safely, Minimal Hand Use Unsupported Stance- Eyes Closed Supervision, 10 seconds Unsupported Stance- Eyes Open Supervision to maintain Reaching Forward Standing Safely, 5 inches Pick- Up Object From Floor Supervision Look Behind Shoulder - Standing Shifts Weight Unilateral Turning 360 Degrees Turns , < 4 secs Unsupported Stance, Alternating Feet on Assist to Prevent Fall Stair Unsupported Tandem Stance Small Step- 30 seconds Unilateral Leg Stance Lifts Leg/Unable to Hold Total Score Steen Total Score (out of 56 points) 41 Steen Impairment Rating 20 to 39% Impaired (Score 34- 44) Banks Fall Scale Copyright Permission PT-OP-E Functional Tests Start: 12/21/19 09:33 Freq: Status: Active Protocol: Document 12/20/19 11:15 DCW (Rec: 12/21/19 10:15 DCW [id number]) Functional Tests Dynamic Gait Index (DGI) Score 15/24 DGI Impairment Rating 20 to <40% Impaired (Score 15- 19) PT-OP-M Strength Start: 12/21/19 09:33 Freq: Status: Active Protocol: Document 12/20/19 11:15 DCW (Rec: 12/21/19 10:14 DCW [id number]) Hip Strength Hip Manual Muscle Testing Right Flexion (L2) 4 Good Abduction 3+ Fair+ Adduction 3- Fair- External Rotation 4- Good- Internal Rotation 4 Good Left Flexion (L2) 4- Good- Abduction 3 Fair Adduction 3- Fair- External Rotation 4+ Good+ Internal Rotation 4 Good Knee Strength Knee Manual Muscle Testing Right Flexion (S2) 4 Good Extension (L3) 5 Normal Left Flexion (S2) 4 Good Extension (L3) 5 Normal Ankle/Foot Strength Ankle and Foot Manual Muscle Testing Right Dorsiflexion (L4) 4- Good- Plantarflexion (S1) 3+ Fair+ Left Dorsiflexion (L4) 4- Good- Plantarflexion (S1) 4 Good PT-OP-T Assessment and Plan Start: 12/21/19 09:33 Freq: Status: Active Protocol: Document 06/28/20 17:15 DCW (Rec: 06/28/20 17:15 DCW [id number]) Physical Therapy Assessment Assessment Summary Assessment Pt did not return phone calls from scheduling department following reopening of clinic after Covid-19 closure. Pt will be discharged from skilled therapy at this time.
== END 2020-06-29 08:14 ==
LOC: PHYS 08:15
PROVIDERS: PCP Family Medicine; Referring Provider Family Medicine; Visit Provider Family Medicine
DX: R27.9 Unspecified lack of coordination (principal); Z91.81 History of falling; M62.81 Muscle weakness (generalized); R26.89 Other abnormalities of gait and mobility
CPT/HCPCS: 97110; 97112; 97162

== ENCOUNTER → 2020-12-27 11:01 | Outpatient (CLI) | payer MEDICARE, SELFPAY ==
--- NOTE | 2020-12-27 11:05 | DI.MRI.S_ITS ---
PROCEDURE: MR STROKE Pre- and post-contrast brain MRI, non-contrast brain MR angiogram, pre- and postcontrast neck MR angiogram INDICATIONS: Syncope and collapse TECHNIQUE: Brain: Noncontrast axial T1 spin echo, axial T2 fast spin echo, sagittal and axial FLAIR, coronal T2 fast spin echo, axial gradient echo, axial diffusion and ADC through the brain. After the administration of contrast, axial 3D VIBE of the cranial vasculature and brain. Brain MRA: Non-contrast 3-D time of flight MR angiogram, with multiple iossfdg-lvzgxrdte-kkhsatdqec (MIP) reformats performed. Neck MRA: Axial and sagittal TruFISP through the neck. Coronal dynamic MR angiogram during administration of contrast in the arterial and venous phases, with 3-dimenstional gfjthoc-hkrmtzbyn-nudbwzktcj (MIP) reformats constructed from subtraction images. COMPARISON: None. FINDINGS: Image quality: Limited; the standard head coil was not able to be used, secondary to patient and abdomen. BRAIN: CSF spaces: Ventricles are normal in size and shape. Basal cisterns are patent. No extra-axial fluid collections. Brain: No intracranial bleeds or mass effects. Valentin-white matter interface is normal. Diffusion weighted images show no acute ischemic insults. Brainstem appears normal. Brain parenchymal volume loss is seen. Chronic small vessel ischemic changes are seen. Normal intravascular flow voids are present. No abnormal intracranial enhancement. Skull and face: Calvarial marrow signal is normal. Orbits appear normal. Note is made of bilateral lens replacements. Sinuses: There is complete opacification seen of the right maxillary sinus. Mild mucosal thickening can be seen elsewhere. There is ufvt-ao-pqkwbtjr fluid seen within the right mastoid air cells. BRAIN MR ANGIOGRAM: Anterior circulation: Intracranial internal carotid arteries are normal in size and enhancement. The flow within the paired anterior cerebral arteries is normal and symmetric. The flow within the middle cerebral arteries is normal and symmetric. The anterior communicating artery is only faintly seen. No stenoses, occlusions, or aneurysms. Posterior circulation: The visualized portions of the vertebral arteries demonstrate normal caliber, and join to form a normal appearing basilar artery. The flow within the posterior cerebral arteries is normal and symmetric. No stenoses, occlusions, or aneurysms. NECK MR ANGIOGRAM: Carotids: Great vessels demonstrate a conventional anatomy as they arise from the aortic arch. The origins of the common carotid arteries appear patent, although the origin of the left common carotid artery is not well seen.. The calibers and courses of both common carotid arteries are normal. The bifurcation regions appear normal bilaterally. The internal carotid arteries demonstrate normal course and caliber. Posterior circulation: The origins of the vertebral arteries appear patent. More superior portions of both vertebral arteries demonstrate normal course and caliber, and join to form a normal appearing basilar artery. Miscellaneous: Subclavian arteries appear patent. Pre-contrast images through the neck show no soft tissue abnormalities. IMPRESSION: BRAIN MRI: No findings of acute or subacute infarction can be seen. Note is made of age-appropriate brain parenchymal volume loss and chronic small vessel ischemic changes. Focal right maxillary sinus disease. No masses or abnormal enhancement can be seen. BRAIN MR ANGIOGRAM: No significant intracranial arterial abnormality is seen. NECK MR ANGIOGRAM: Within the arteries of the neck, no hemodynamically significant stenosis can be seen. Dictated by: Saul Cummings M.D. on 12/27/2020 at 11:34 Approved by: Saul Cummings M.D. on 12/27/2020 at 11:38
== END ==
PROVIDERS: PCP Family Medicine; Referring Provider Family Medicine; Visit Provider Family Medicine
DX: R55 Syncope and collapse (principal)
CPT/HCPCS: 70548; 70553; 93246

== ENCOUNTER → 2020-12-27 12:19 | Outpatient (CLI) | payer MEDICARE, SELFPAY ==
--- NOTE | 2021-01-23 08:31 | P.HOLT.S_ITS ---
English Language Learner Teacher Report Referral & Results Date Patient Seen: 12/27/20 Requesting provider: Liu Alejo Indication: Syncope Duration of monitoring (days): 13 Diary information: There were no patient events to review Data: Minimum heart rate identified was 54 beats per minute at 07:40 on 12/30/2020 Maximum sinus heart rate was 142 beats per minute at 17:11 on 12/31/2020 Maximum overall heart rate was 171 beats per minute at 15:33 on 01/06/2021 during a run of SVT Approximately 2.3% of identified beats were supraventricular ectopic in origin which would classify them as occasional Less than 1% of identified beats were ventricular ectopic in origin There were 32 runs of SVT with the fastest interval as above the longest lasting 14.5 seconds at a rate of 132 beats per minute which suggest more atrial tachycardia than true SVT There was 1 run of nonsustained monomorphic ventricular tachycardia lasting 4 beats with narrow complexes suggesting a near AV ashu source Impression: 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 Clinical correlation suggested
== END ==
PROVIDERS: PCP Family Medicine; Referring Provider Family Medicine; Visit Provider Family Medicine
DX: R55 Syncope and collapse (principal)
CPT/HCPCS: 93246; 93248

== ENCOUNTER → 2021-01-12 13:14 | Outpatient (CLI) | payer MEDICARE, SELFPAY ==
--- NOTE | 2021-01-12 | DI.ECHO.S_ITS ---
[facility]---------+ [facility] +---------+ : : [address] : : : [place], [place] : : : : [id number] : : : : Phone: [phone]+ Echocardiogram Report + + :Name: SABRINA LEDEZMA JR Study Date: 01/12/2021 Height: 70 in : :[facility] ReadingLocation: Weight: 205 lb : : Gender: Male BSA: 2.1 m2 : :: 1940 Age: 80 yrs BP: 133/67 mmHg: :Reason For Study: SYNCOPE AND COLLAPSE : : Performed By: Live Fowler : :Referring: NAYANA MORALES : + + Interpretation Summary The left ventricle is normal in size. The ejection fraction is estimated to be 60-65%. The right ventricle is normal in size and function. Heavy calcification of the posterior mitral annulus. Anterior leaflet is pliable. No significant mitral stenosis or regurgitation seen. Procedure: A two-dimensional transthoracic echocardiogram with color flow and Doppler was performed. The study quality was technically difficult. There is no prior echocardiogram noted for this patient. The subcostal views were difficult to obtain and are suboptimal in quality. The suprasternal notch views were difficult to obtain and are suboptimal in quality. The patient declined the use of Definity contrast. The patient was in normal sinus rhythm during the exam. Left Ventricle: The left ventricle is normal in size. There is normal left ventricular wall thickness. The LVOT velocity is 1.41 m/s. The left ventricular outflow velocity with valsalva is 1.03. There is no thrombus. The ejection fraction is estimated to be 60-65%. There are no focal wall motion abnormalities. MV E/A: 0.64 Med Peak E' Nick: 3.9 cm/sec E/E' med: 21.5. Right Ventricle: The right ventricle is normal in size and function. Atria: The left atrium is mildly dilated. Right atrial size is normal. A prominent eustachian valve is noted. There is no Doppler evidence for an atrial septal defect. Mitral Valve: There is moderate to severe mitral annular calcification. Heavy calcification of the posterior mitral annulus. Anterior leaflet is pliable. No significant mitral stenosis or regurgitation seen. No significant mitral valve stenosis. There is trace mitral regurgitation. Aortic Valve: The aortic valve is mildly calcified. The aortic valve is not well visualized. There is no aortic valve stenosis. No aortic regurgitation is present. Tricuspid Valve: The tricuspid valve is normal in structure and function. Pulmonary artery pressures cannot be estimated because of the lack of a measurable TR jet velocity. There is trace tricuspid regurgitation. Pulmonic Valve: The pulmonic valve is not well seen, but is grossly normal. There is no pulmonic valvular regurgitation. Great Vessels: The aortic root is normal size. There is aortic root sclerosis/calcification. The ascending aorta is mildly enlarged. The pulmonary artery is normal size. The inferior vena cava was not well visualized. Pericardium/ Pleura There is no pericardial effusion. There is no pleural effusion. MMode/2D Measurements & Calculations LVIDd: 5.0 cm LVOT diam: 2.2 cm LVIDs: 2.4 cm Ao root diam: 3.6 cm FS: 52.6 % asc Aorta Diam: 3.7 cm EPSS: 0.51 cm IVSd: 0.83 cm LVPWd: 0.85 cm LV navarro. diameter/BSA (cm/m^2): 2.4 LV sys. diameter/BSA (cm/m^2): 1.1 LA dimension: 4.5 cm RA long axis: 6.4 cm LA A2 area: 27.3 cm2 RA area: 15.6 cm2 LA A4 area: 26.9 cm2 RA vol: 32.5 ml LA length (vol): 7.7 cm RA : 15.4 ml/m2 LA vol: 80.4 ml LA vol index: 38.1 ml/m2 TAPSE: 2.1 cm Doppler Measurements & Calculations Ao V2 max: 181.9 cm/sec LVOT Max Nick: 141.6 cm/sec Ao V2 mean: 134.8 cm/sec LV V1 max P.0 mmHg Ao max P.2 mmHg LV V1 VTI: 27.6 cm Ao mean P.9 mmHg SERENITY(I,D): 3.0 cm2 Ao V2 VTI: 33.9 cm SERENITY(V,D): 2.9 cm2 sev ratio: 0.82 SERENITY indexed to BSA (cm^2/m^2): 1.4 MV E max nick: 83.4 cm/sec PA V2 max: 80.6 cm/sec MV A max nick: 129.7 cm/sec PA V2 mean: 56.3 cm/sec MV E/A: 0.64 PA mean P.4 mmHg Med Peak E' Nick: 3.9 cm/sec PA pr(Accel): 43.0 mmHg E/E' med: 21.5 Lat Peak E' Nick: 3.8 cm/sec E/E' lat: 22.0 E/e' average: 21.7 MV dec time: 0.26 sec MVA(VTI): 3.1 cm2 MV V2 mean: 70.6 cm/sec SV(LVOT): 101.9 ml MV mean P.5 mmHg MV V2 VTI: 32.8 cm Reading Physician:05:49 PM
== END ==
PROVIDERS: PCP Family Medicine; Referring Provider Family Medicine; Visit Provider Family Medicine
DX: R55 Syncope and collapse (principal); I77.89 Other specified disorders of arteries and arterioles
CPT/HCPCS: 93306

== ENCOUNTER → 2021-10-05 10:15 | Outpatient (CLI) | payer MEDICARE, SELFPAY ==
[2021-10-05 11:08] LABS: Add Manual Diff / Slide Review NO; Basophils Absolute Auto 100 /uL (0-100); Basophils Percent Auto 0.6 % (0-2); Eosinophils Absolute Auto 100 /uL (0-450); Eosinophils Percent Auto 1.2 % (2-4); Hematocrit 40.9 % (41-53); Hemoglobin 13.9 g/dL (13.5-17.5); Lymphocytes Absolute Auto 1000 /uL (1100-4500); Lymphocytes Percent Auto 11.5 % (25-40); Mean Corpuscular HGB Conc 33.9 % (30-36); Mean Corpuscular Hemoglobin 31.5 PG (26-34); Mean Corpuscular Volume 92.8 fL (80-100); Monocytes Absolute Auto 500 /uL (0-900); Monocytes Percent Auto 5.8 % (3-14); Neutrophils Absolute Auto 7000 /uL (1500-7000); Neutrophils Percent Auto 80.9 % (50-75); Platelet Count 179 X10^3/uL (150-400); Red Blood Cell Count 4.41 X10^6/uL (4.5-5.9); Red Cell Distribution Width 13.1 % (11.6-14.8); White Blood Cell Count 8.6 X10^3/uL (4.5-11.0)
[2021-10-05 12:23] LABS: Alanine Aminotransferase 25 IU/L (<50); Albumin 4.2 g/dL (3.5-5.0); Albumin Globulin Ratio 1.4 (1.0-2.8); Alkaline Phosphatase 49 U/L (38-126); Aspartate Aminotransferase 34 IU/L (17-59); BUN Creatinine Ratio 14.5 (6-22); Bilirubin Total 0.7 mg/dL (0.2-1.3); Blood Urea Nitrogen 17 mg/dL (9-20); Calcium 10.5 mg/dL (8.4-10.2); Carbon Dioxide 33 mmol/L (22-32); Chloride 94 mmol/L (98-107); Creatine Kinase 150 U/L (55-170); Estimated Glomerular Filt Rate 59.8 mL/min (>60); Glucose 189 mg/dL (80-110); HEMOLYSIS < 15 (0-50); Sodium 134 mmol/L (137-145); Total Protein 7.2 g/dL (6.3-8.2)
== END ==
PROVIDERS: PCP Family Medicine; Referring Provider Family Medicine; Visit Provider Family Medicine
DX: R11.0 Nausea (principal); R53.83 Other fatigue; E78.5 Hyperlipidemia, unspecified
CPT/HCPCS: 36415; 80053; 82550; 85025

== ENCOUNTER → 2021-10-18 09:34 | Outpatient (CLI) | payer MEDICARE, SELFPAY ==
--- NOTE | 2021-10-18 | DI.RAD.S_ITS ---
PROCEDURE: XR KNEE LT 3V INDICATIONS: Other fatigue TECHNIQUE: 3 views of the knee were acquired. COMPARISON: None. FINDINGS: Bones: No fractures or dislocations. Superior patellar enthesophyte. A fabella is noted. No suspicious bony lesions. Narrowing of the lateral aspect, patellofemoral compartment. Soft tissues: Small joint effusion. Vascular calcifications are demonstrated. IMPRESSION: No acute osseous abnormality. Dictated by: Mike Coats M.D. on 10/18/2021 at 10:35 Approved by: Mike Coats M.D. on 10/18/2021 at 10:37
== END ==
PROVIDERS: PCP Family Medicine; Referring Provider Family Medicine; Visit Provider Family Medicine
DX: M25.462 Effusion, left knee; M25.562 Pain in left knee
CPT/HCPCS: 73562

== ENCOUNTER → 2021-11-26 15:55 | Outpatient (CLI) | payer MEDICARE, SELFPAY ==
--- NOTE | 2021-11-26 15:57 | DI.RAD.S_ITS ---
PROCEDURE: XR CHEST 2V INDICATIONS: ACUTE COUGH TECHNIQUE: 2 views of the chest were acquired. COMPARISON: [facility], CR, XR CHEST 1V, 08/30/2019, 8:55. [facility], CR, XR CHEST 2V, 08/16/2019, 11:52. FINDINGS: Surgical changes and devices: None. Lungs and pleura: Small left pleural effusion present which has decreased from prior examination and there is persistent left basilar pleural parenchymal opacity. Right lung is clear. No pneumothorax. Mediastinum: Mediastinal contours are normal. The cardiac silhouette is partially obscured. Bones and chest wall: No suspicious bony abnormalities. Soft tissues appear unremarkable. IMPRESSION: 1. Decrease in size of left pleural effusion which has not decreased and persistent left basilar pleural parenchymal opacity consistent with compressive atelectasis versus consolidation or neoplasm. Continued radiographic surveillance to resolution is recommended. Dictated by: Joseph Najera Tsering Interpreted: Mike Coats MD on 11/26/2021 at 16:13 Transcribed by: JUANA on 11/26/2021 at 16:14 Approved by: Mike Coats M.D. on 11/26/2021 at 16:53
== END ==
PROVIDERS: PCP Family Medicine; Referring Provider Family Medicine; Visit Provider Family Medicine
DX: J90 Pleural effusion, not elsewhere classified (principal); R05.1 Acute cough
CPT/HCPCS: 71046

== ENCOUNTER 2021-11-27 18:31 | Inpatient (IN) | payer MEDICARE, SELFPAY ==
[2021-11-27] VITALS (14 sets, daily range): BP systolic 150–179; BP diastolic 76–86; PULSE 64–81; RESP 15–35; TEMP 36.3–37; O2SAT 96–100; BMI 28.5; BMI 27.2
[2021-11-27] MEDS: ONDANSETRON 4 MG/2 ML INJ IV (19:15)
[2021-11-27 19:19] LABS: Alanine Aminotransferase 32 IU/L (<50); Albumin 4.3 g/dL (3.5-5.0); Albumin Globulin Ratio 1.4 (1.0-2.8); Alkaline Phosphatase 47 U/L (38-126); Aspartate Aminotransferase 59 IU/L (17-59); BUN Creatinine Ratio 13.8 (6-22); Bilirubin Total 1.4 mg/dL (0.2-1.3); Blood Urea Nitrogen 13 mg/dL (9-20); Carbon Dioxide 28 mmol/L (22-32); Creatine Kinase 504 U/L (55-170); Estimated Glomerular Filt Rate > 60.0 mL/min (>60); Glucose 101 mg/dL (80-110); HEMOLYSIS < 15 (0-50); Lipase 101 U/L (23-300); Magnesium 1.5 mg/dL (1.6-2.3); Potassium 4.2 mmol/L (3.4-5.1); Total Protein 7.3 g/dL (6.3-8.2)
[2021-11-27 19:26] LABS: Chloride 73 mmol/L (98-107); Sodium 107 mmol/L (137-145)
[2021-11-27 19:29] LABS: Troponin I < 0.012 ng/mL (0.01-0.034)
[2021-11-27 19:33] LABS: CKMB % Relative Index 1.4 % (1.5-5.0); Creatine Kinase MB 7.14 ng/mL (<2.37)
--- NOTE | 2021-11-27 19:39 | ED_ITS ---
HPI - General Adult General Chief complaint: Weakness Stated complaint: Weakness,nausea,low sodium Time Seen by Provider: 11/27/21 19:26 Source: patient Mode of arrival: EMS Limitations: no limitations History of Present Illness HPI narrative: Patient is an 81-year-old male. Was sent into the emergency department by his primary doctor for evaluation of abnormal lab tests that were performed as an outpatient yesterday. Apparently he had a sodium of 112. He states for the past 2 weeks he generally has not felt very well. Has had a dry cough. Saw his primary doctor in the office. Was started on antibiotics. Was eventually switched to a 2nd antibiotic by another provider. His cough is not improved. Had labs drawn yesterday and received phone call today telling him to come the emergency department. He denies chest pain. No specific shortness of breath. No abdominal pain. Some nausea no vomiting. No skin rashes. No change in urine. Has not had a bowel movement in 4 days. He did fall a couple days ago. He did hit his head. There was no loss of consciousness. No other injuries from the event. He has no headache. He states that he felt like his blood sugar was low. He got up out of bed and fell over. He was able to recover from the event but fell again later in the day. He has had no seizure-like activity. Related Data Home Medications Medication Instructions Recorded Confirmed glyburide 2.5 mg tablet 2.5 mg PO QAM 04/09/19 11/27/21 hydrochlorothiazide 25 mg tablet 25 mg PO QAM 04/09/19 11/27/21 lisinopril 20 mg tablet 20 mg PO QAM 04/09/19 11/27/21 metformin 500 mg tablet 500 mg PO BID 04/09/19 11/27/21 tamsulosin 0.4 mg capsule 0.8 mg PO QPM 04/09/19 11/27/21 aspirin 81 mg capsule 81 mg PO QAM 11/27/21 11/27/21 fluoxetine 10 mg capsule 10 mg PO QPM 11/27/21 11/27/21 gabapentin 300 mg capsule 600 mg PO BEDTIME 11/27/21 11/27/21 levofloxacin 500 mg tablet 500 mg PO DAILY 11/27/21 11/27/21 metoprolol tartrate 25 mg tablet See Rx Instructions .ROUTE .COMPLEX 11/27/21 11/27/21 Allergies Allergy/AdvReac Type Severity Reaction Status Date / Time ibuprofen Allergy Unknown Verified 11/27/21 18:39 Review of Systems Constitutional Constitutional: Reports fatigue, Denies fever(s), Denies headache(s), Reports lethargy and Reports malaise Eyes Eyes: Denies change in vision ENT Ears, Nose, Mouth, and Throat: Denies vertigo, Denies dizziness and Denies headache(s) Cardiovascular Cardiovascular: Denies chest pain and Denies dyspnea Respiratory Respiratory: Reports cough and Denies dyspnea Gastrointestinal Gastrointestinal: Denies abdominal pain, Reports nausea and Denies vomiting Comments: Has not had a bowel movement in 4 days Genitourinary Genitourinary: Denies dysuria Musculoskeletal Musculoskeletal: Reports system reviewed and no additional complaints, except as documented Integumentary/Breasts Skin/Breast: Reports system reviewed and no additional complaints, except as documented Neurologic Neurologic: Denies abnormal speech, Denies confusion, Denies vertigo, Denies dizziness, Denies headache(s), Denies lack of coordination and Denies localized weakness Psychiatric Psychiatric: Reports system reviewed and no additional complaints, except as documented and Denies confusion Endocrine Endocrine: Reports fatigue Hematologic/Lymphatic On Anticoagulants: No Allergic/Immunologic Allergic/Immunologic: Reports system reviewed and no additional complaints, except as documented Patient History Medical History BPH (benign prostatic hyperplasia) Diabetes Hyperlipidemia Hypertension Skin cancer Surgical History H/O cataract removal with insertion of prosthetic lens No pertinent past surgical history Social History household members: spouse and children Smoking Status: Former smoker alcohol intake: current Smoking Status: Former smoker alcohol intake frequency: holidays/special occasions only Substance Use Type: does not use Exam Initial Vital Signs Initial Vital Signs: Vital Signs Temperature 98.6 F 11/27/21 18:35 Pulse Rate 67 11/27/21 18:35 Respiratory Rate 16 11/27/21 18:35 Blood Pressure 179/85 H 11/27/21 18:35 Pulse Oximetry 99 11/27/21 18:35 Const General: cooperative, comfortable, well developed and well groomed [facility] Head: normal to inspection and normocephalic Eyes General: appearance normal, both eyes and all related structures Chest Chest: normal inspection of the chest Resp Effort & Inspection: normal respiratory effort Auscultation: clear to auscultation bilaterally Cardio Rate: regular rate Rhythm: regular rhythm GI Inspection: non-distended Palpation: soft and No tender Skin General: no rashes or lesions noted Neuro General: patient alert, patient awake, patient oriented x3 and moves all extremities Extrem General: normal to inspection and capillary refill normal Psych Appearance: grossly normal and well kempt Scores GCS Sarona coma scale eye opening: Spontaneous Sarona coma scale verbal response: Orientated Sar[place] coma scale motor response: Obey commands Sarona coma scale total score: 15 Course Orders Ordered: ED Orders 11/27/21 18:37 Complete Blood Count AUTO DIFF Stat Comprehensive Metabolic Panel Stat Lipase Stat Magnesium Stat Procalcitonin Stat Troponin & CK Cardiac Panel Stat 11/27/21 18:39 EKG-12 Lead Stat 11/27/21 19:35 COVID19 - ADMIT (ACCOUNT SERVICE REPRESENTATIVE swab/PCR) Stat 11/27/21 20:08 CT chest abd pel w con Stat Acetaminophen (Acetaminophen 325 Mg Tablet) 650 mg PO Q6HR PRN PRN Reason: Fever/Mild Pain (1-3) Dextrose (Dextrose 50 % In Water 25 Gm/50 Ml Syringe) 25 gm IV PRN PRN; Protocol PRN Reason: Hypoglycemia Guaifenesin (Guaifenesin Solution 100 Mg/5 Ml Udc) 100 mg PO Q4HR PRN PRN Reason: Cough Last Admin: 11/28/21 00:43 Dose: 100 mg Documented by: [email or web address] Sodium Chloride (Normal Saline 0.9%) 1,000 mls @ 100 mls/hr IV CONT DMITRIY Last Infusion: 11/28/21 00:43 Dose: 100 mls/hr Documented by: [email or web address] Infusion: 11/27/21 21:15 Dose: 0 mls/hr Documented by: Admin: 11/27/21 19:50 Dose: 100 mls/hr Documented by: [email or web address] Insulin Human Lispro (Insulin Lispro 100 Unit/Ml 3ml Vial) 0 unit SUBCUT ACHS DMITRIY; Protocol Lorazepam (Lorazepam 0.5 Mg Tablet) 0.5 mg PO Q6HR PRN PRN Reason: Anxiety Metoprolol Tartrate (Metoprolol Ir 25 Mg Tablet) 25 mg PO BID DMITRIY Last Admin: 11/28/21 00:18 Dose: Not Given Documented by: [email or web address] Morphine Sulfate (Morphine 2 Mg/Ml Inj) 2 mg IV Q4HR PRN PRN Reason: Pain, Mild (1-3) Ondansetron HCl (Ondansetron 4 Mg/2 Ml Inj) 4 mg IV Q4HR PRN PRN Reason: Nausea And Vomiting Last Admin: 11/28/21 00:43 Dose: 4 mg Documented by: [email or web address] Discontinued Medications Lidocaine HCl (Lidocaine 2% (Glydo) 6 Ml Gel) 6 ml TOP NOW ONE Stop: 11/27/21 20:38 Last Admin: 11/27/21 20:47 Dose: 6 ml Documented by: MICHAEL Ondansetron HCl (Ondansetron 4 Mg/2 Ml Inj) 4 mg IV NOW ONE Stop: 11/27/21 19:10 Last Admin: 11/27/21 19:15 Dose: 4 mg Documented by: MICHAEL Vital Signs Vital signs: Vital Signs - 8 hr 11/27/21 18:35 11/27/21 18:38 11/27/21 19:00 Temperature 98.6 F Pulse Rate 67 67 64 Respiratory Rate 16 16 15 Blood Pressure 179/85 H 156/85 H Pulse Oximetry 99 100 99 11/27/21 19:30 11/27/21 20:00 11/27/21 20:02 Temperature Pulse Rate 64 71 70 Respiratory Rate 23 23 22 Blood Pressure 150/81 H 168/86 H Pulse Oximetry 98 99 99 Medical Decision Making Medical Records Medical records reviewed: Yes I reviewed the patient's medical records. Lab Data Lab results reviewed: Yes I reviewed the patient's lab results. Result diagrams: 11/27/21 18:37 11/27/21 22:15 Labs: Lab Results 11/27/21 11/27/21 11/27/21 Range/Units 18:37 18:37 18:37 WBC 7.3 (4.5-11.0) X10^3/uL RBC 4.16 L (4.5-5.9) X10^6/uL Hgb 13.0 L (13.5-17.5) g/dL Hct 35.0 L (41-53) % MCV 84.2 (80-100) fL MCH 31.2 (26-34) PG MCHC 37.0 H (30-36) % RDW 12.7 (11.6-14.8) % Plt Count 234 (150-400) X10^3/uL Neut % (Auto) 74.6 (50-75) % Lymph % (Auto) 12.6 L (25-40) % Canadian % (Auto) 10.9 (3-14) % Eos % (Auto) 1.6 L (2-4) % Baso % (Auto) 0.3 (0-2) % Neut # (Auto) 5400 (1454-2207) /uL Lymph # (Auto) 900 L (2520-9055) /uL Canadian # (Auto) 800 (0-900) /uL Eos # (Auto) 100 (0-450) /uL Baso # (Auto) 0 (0-100) /uL RBC Morphology Normal morphology Sodium 107 L* (137-145) mmol/L Potassium 4.2 (3.4-5.1) mmol/L Chloride 73 L* (98-107) mmol/L Carbon Dioxide 28 (22-32) mmol/L BUN 13 (9-20) mg/dL Creatinine 0.94 (0.66-1.25) mg/dL Estimated GFR > 60.0 (>60) mL/min BUN/Creatinine Ratio 13.8 (6-22) Glucose 101 (80-110) mg/dL Calcium 9.0 (8.4-10.2) mg/dL Magnesium 1.5 L (1.6-2.3) mg/dL Total Bilirubin 1.4 H (0.2-1.3) mg/dL AST 59 (17-59) IU/L ALT 32 (<50) IU/L Alkaline Phosphatase 47 (38-126) U/L Total Creatine Kinase 504 H (55-170) U/L CK-MB (CK-2) 7.14 H (<2.37) ng/mL CK-MB (CK-2) Rel Index 1.4 L (1.5-5.0) % Troponin I < 0.012 (0.01-0.034) ng/mL Total Protein 7.3 (6.3-8.2) g/dL Albumin 4.3 (3.5-5.0) g/dL Globulin 3.0 (1.7-4.1) g/dL Albumin/Globulin Ratio 1.4 (1.0-2.8) Lipase 101 (23-300) U/L Procalcitonin 0.22 (<0.5) ng/mL SARS-CoV-2 (PCR) (Negative) 11/27/21 Range/Units 19:35 WBC (4.5-11.0) X10^3/uL RBC (4.5-5.9) X10^6/uL Hgb (13.5-17.5) g/dL Hct (41-53) % MCV (80-100) fL MCH (26-34) PG MCHC (30-36) % RDW (11.6-14.8) % Plt Count (150-400) X10^3/uL Neut % (Auto) (50-75) % Lymph % (Auto) (25-40) % Canadian % (Auto) (3-14) % Eos % (Auto) (2-4) % Baso % (Auto) (0-2) % Neut # (Auto) (7517-1798) /uL Lymph # (Auto) (8809-0954) /uL Canadian # (Auto) (0-900) /uL Eos # (Auto) (0-450) /uL Baso # (Auto) (0-100) /uL RBC Morphology Sodium (137-145) mmol/L Potassium (3.4-5.1) mmol/L Chloride (98-107) mmol/L Carbon Dioxide (22-32) mmol/L BUN (9-20) mg/dL Creatinine (0.66-1.25) mg/dL Estimated GFR (>60) mL/min BUN/Creatinine Ratio (6-22) Glucose (80-110) mg/dL Calcium (8.4-10.2) mg/dL Magnesium (1.6-2.3) mg/dL Total Bilirubin (0.2-1.3) mg/dL AST (17-59) IU/L ALT (<50) IU/L Alkaline Phosphatase (38-126) U/L Total Creatine Kinase (55-170) U/L CK-MB (CK-2) (<2.37) ng/mL CK-MB (CK-2) Rel Index (1.5-5.0) % Troponin I (0.01-0.034) ng/mL Total Protein (6.3-8.2) g/dL Albumin (3.5-5.0) g/dL Globulin (1.7-4.1) g/dL Albumin/Globulin Ratio (1.0-2.8) Lipase (23-300) U/L Procalcitonin (<0.5) ng/mL SARS-CoV-2 (PCR) Negative (Negative) Imaging Data CT chest/abd/pelvis: Radiologist's Impression: [address] [address] [address] Scan Report Signed Patient: Babak Handley Jr MR#: [id number] : 1940 Acct:[id number] Age/Sex: 81 / M Date of Service: 11/27/21 Loc: ICU 227-1 Accession Number: [id number] ?? Procedure: CT chest abd pel w con Ordering Provider: Dc Gould D.O. PROCEDURE:? CT CHEST ABD PEL W CON ? INDICATIONS:? possible lung cancer ? TECHNIQUE:? After the administration of intravenous contrast, 5 mm thick sections acquired from the lung apices to the symphysis.? 2.5 mm thick coronal and sagittal reformats were acquired. ?Additional 7 mm thick coronal maximum intensity projection (MIP) reformats acquired through the lungs.? Optional 10-minute delayed imaging may be performed from the kidneys to the bladder.? For radiation dose reduction, the following was used:? automated exposure control, adjustment of mA and/or kV according to patient size.? ? COMPARISON:? [facility], CT, CT CHEST WO CON, 04/08/2019, 21:46. ? FINDINGS:? Image quality:? Excellent.? ? CHEST:? Lungs:? Lateral right lower lobe nodule measuring 3 mm (image 93/series 3).? Posterolateral right lower lobe nodule measuring 3 mm seen on image 196, series 3. Left upper lobe is clear.? There is a new a new 2.5 x 1.5 cm pleural-based consolidation abutting the anteromedial margin of the left lower lobe (image 194/series 3.) 2 larger pleural-based masses are also noted more inferiorly abutting the posterior pleura of the left lower lobe measuring 7.0 x 2.5 cm more posteriorly and 4.3 x 1.7 cm more anteriorly. ?Appears to be some crowding of brochovascular structures into these masses.? No pneumothorax.? Trace left pleural effusion.? No evidence for pleural enhancement.? Central and peripheral airways appear patent and normal in caliber.? ? Mediastinum:? No mediastinal hematomas.? Heart size is normal.? No pericardial effusion.? Dense atherosclerotic calcifications of the coronary arteries.? Thoracic aorta and pulmonary arteries demonstrate normal size and enhancement.? No mediastinal or hilar adenopathy.? Esophagus is normal in caliber.? Large hiatal hernia.? ? Chest wall:? No acute rib fractures.? Multiple healed rib fracture deformities involving the posterolateral left ribs, particularly in the lower chest.? No subcutaneous emphysema.? No axillary or supraclavicular adenopathy.? Thyroid gland is unremarkable. ? ? ABDOMEN:? Solid organs:? Liver is normal in size and enhancement, without lacerations.? Gallbladder contains multiple gallstones without CT evidence for acute cholecystitis..? Biliary system is non-dilated.? Pancreas enhances normally, without transection.? Spleen is normal in size and enhancement, without lacerations.? No adrenal hematomas.? Both kidneys enhance normally, without hydronephrosis .? Stable senescent stranding of the bilateral kidneys.? Subcentimeter left renal hypodensity is incompletely characterized but likely represents a cyst. ? Peritoneum and bowel:? No free fluid or air.? Unenhanced bowel loops demonstrate normal wall thickness and caliber.? ? Nodes and vessels:? No retroperitoneal or mesenteric adenopathy.? Aorta and inferior vena cava are normal in size and enhancement.? Scattered atherosclerotic calcifications of the abdominal aorta and iliac vessels without aneurysmal dilatation. ? Miscellaneous:? No ventral hernias.? ? ? PELVIS:? Genitourinary:? Bladder wall thickness is normal.? Prostatomegaly.? ? Miscellaneous:? No pelvic adenopathy.? Fat containing bilateral inguinal hernias without acute inflammation.? ? Bones:? No acute vertebral body compression fractures. Multilevel spondylitic changes throughout the imaged spine.? No suspicious osseous lesions..? ? ? IMPRESSION:? ? 1. New pleural based left lower lobe pulmonary masses with suggestion of crowding of adjacent bronchovascular structures.? No associated mediastinal or hilar adenopathy.? There is overlying healed rib fracture deformities.? Trace left pleural effusion .? Findings may represent rounded atelectasis secondary to remote trauma; however, a neoplastic process not excluded.? Consider further evaluation with PET-CT versus tissue sampling. ? 2. Few scattered right sided pulmonary nodules measuring less than 5 mm in size.? Attention can be made on follow-up imaging. ? 3. Cholelithiasis without CT evidence for acute cholecystitis. ? 4. Atherosclerotic vascular disease. ? 5. Large hiatal hernia. ? Other chronic findings as above.? Dictated by: Jae Lopez M.D. on 11/27/2021 at 21:21 ? ? Approved by: Jae Lopez M.D. on 11/27/2021 at 21:36?? ECG Data Interpretation: Sinus rhythm Ventricular rate is 65 Normal axis Normal QRS Normal QTC No ST T wave changes MDM Narrative Medical decision making narrative: Patient is well-appearing. Has a fairly unremarkable exam. Has limited complaints except for a cough and generally not feeling well for the past couple weeks. Repeat labs today do show a sodium of 107. Unsure the exact etiology of this. He did have a chest x-ray yesterday which showed a left-sided pleural effusion and some other concerning findings potentially neoplastic in origin. I did discuss the case with Dr. Marroquin who is on-call for the patient's primary doctor. Decision was made to obtain a CT scan of chest abdomen and pelvis. The results of this will be followed up by the inpatient team. Patient started on gentle hydration. Will admit for further evaluation and treatment. The need for admission was discussed with the patient. He expressed understanding. Patient did express the desire to be full code. Discharge Plan Departure Patient Disposition: Admitted As Inpatient Clinical Impression: Hypokalemia, Malaise, Pleural effusion Admit Date/Time: 11/27/21 20:12 Admit Provider: Virginie Marroquin
[2021-11-27] MEDS: SODIUM CHLORIDE 0.9% 1,000 ML 100 ML IV (19:50)
[2021-11-27 19:51] LABS: Basophils Absolute Auto 0 /uL (0-100); Basophils Percent Auto 0.3 % (0-2); Eosinophils Absolute Auto 100 /uL (0-450); Eosinophils Percent Auto 1.6 % (2-4); Lymphocytes Absolute Auto 900 /uL (1100-4500); Lymphocytes Percent Auto 12.6 % (25-40); Monocytes Absolute Auto 800 /uL (0-900); Monocytes Percent Auto 10.9 % (3-14); Neutrophils Absolute Auto 5400 /uL (1500-7000); Neutrophils Percent Auto 74.6 % (50-75); Platelet Count 234 X10^3/uL (150-400); Red Cell Distribution Width 12.7 % (11.6-14.8); White Blood Cell Count 7.3 X10^3/uL (4.5-11.0)
[2021-11-27 20:02] LABS: Red Blood Cell Count 4.16 X10^6/uL (4.5-5.9)
[2021-11-27 20:03] LABS: Add Manual Diff / Slide Review SLIDE REVIEW; Mean Corpuscular Hemoglobin 31.2 PG (26-34); Mean Corpuscular Volume 84.2 fL (80-100)
--- NOTE | 2021-11-27 20:08 | DI.CT.S_ITS ---
PROCEDURE: CT CHEST ABD PEL W CON INDICATIONS: possible lung cancer TECHNIQUE: After the administration of intravenous contrast, 5 mm thick sections acquired from the lung apices to the symphysis. 2.5 mm thick coronal and sagittal reformats were acquired. Additional 7 mm thick coronal maximum intensity projection (MIP) reformats acquired through the lungs. Optional 10-minute delayed imaging may be performed from the kidneys to the bladder. For radiation dose reduction, the following was used: automated exposure control, adjustment of mA and/or kV according to patient size. COMPARISON: [facility], CT, CT CHEST WO CON, 04/08/2019, 21:46. FINDINGS: Image quality: Excellent. CHEST: Lungs: Lateral right lower lobe nodule measuring 3 mm (image 93/series 3). Posterolateral right lower lobe nodule measuring 3 mm seen on image 196, series 3. Left upper lobe is clear. There is a new a new 2.5 x 1.5 cm pleural-based consolidation abutting the anteromedial margin of the left lower lobe (image 194/series 3.) 2 larger pleural-based masses are also noted more inferiorly abutting the posterior pleura of the left lower lobe measuring 7.0 x 2.5 cm more posteriorly and 4.3 x 1.7 cm more anteriorly. Appears to be some crowding of brochovascular structures into these masses. No pneumothorax. Trace left pleural effusion. No evidence for pleural enhancement. Central and peripheral airways appear patent and normal in caliber. Mediastinum: No mediastinal hematomas. Heart size is normal. No pericardial effusion. Dense atherosclerotic calcifications of the coronary arteries. Thoracic aorta and pulmonary arteries demonstrate normal size and enhancement. No mediastinal or hilar adenopathy. Esophagus is normal in caliber. Large hiatal hernia. Chest wall: No acute rib fractures. Multiple healed rib fracture deformities involving the posterolateral left ribs, particularly in the lower chest. No subcutaneous emphysema. No axillary or supraclavicular adenopathy. Thyroid gland is unremarkable. ABDOMEN: Solid organs: Liver is normal in size and enhancement, without lacerations. Gallbladder contains multiple gallstones without CT evidence for acute cholecystitis.. Biliary system is non-dilated. Pancreas enhances normally, without transection. Spleen is normal in size and enhancement, without lacerations. No adrenal hematomas. Both kidneys enhance normally, without hydronephrosis . Stable senescent stranding of the bilateral kidneys. Subcentimeter left renal hypodensity is incompletely characterized but likely represents a cyst. Peritoneum and bowel: No free fluid or air. Unenhanced bowel loops demonstrate normal wall thickness and caliber. Nodes and vessels: No retroperitoneal or mesenteric adenopathy. Aorta and inferior vena cava are normal in size and enhancement. Scattered atherosclerotic calcifications of the abdominal aorta and iliac vessels without aneurysmal dilatation. Miscellaneous: No ventral hernias. PELVIS: Genitourinary: Bladder wall thickness is normal. Prostatomegaly. Miscellaneous: No pelvic adenopathy. Fat containing bilateral inguinal hernias without acute inflammation. Bones: No acute vertebral body compression fractures. Multilevel spondylitic changes throughout the imaged spine. No suspicious osseous lesions.. IMPRESSION: 1. New pleural based left lower lobe pulmonary masses with suggestion of crowding of adjacent bronchovascular structures. No associated mediastinal or hilar adenopathy. There is overlying healed rib fracture deformities. Trace left pleural effusion. Findings may represent rounded atelectasis secondary to remote trauma; however, a neoplastic process not excluded. Consider further evaluation with PET-CT versus tissue sampling. 2. Few scattered right sided pulmonary nodules measuring less than 5 mm in size. Attention can be made on follow-up imaging. 3. Cholelithiasis without CT evidence for acute cholecystitis. 4. Atherosclerotic vascular disease. 5. Large hiatal hernia. Other chronic findings as above. Dictated by: Jae Lopez M.D. on 11/27/2021 at 21:21 Approved by: Jae Lopez M.D. on 11/27/2021 at 21:36
[2021-11-27 20:19] LABS: RBC Morphology Normal Morphology
--- NOTE | 2021-11-27 20:20 | PC.NURSE ---
Patient reports weakness and I'm not able to walk. I lose my balance, that began about 1 week ago. Reports 2 falls in the last week. Noticeable bruising on posterior side of his head. Reports nausea, productive cough, and burning with urination.
[2021-11-27 20:25] LABS: COVID19 - ADMIT (NP swab/PCR) Negative (Negative)
[2021-11-27 20:42] LABS: Procalcitonin 0.22 ng/mL (<0.5)
[2021-11-27] MEDS: LIDOCAINE 2% (GLYDO) 6 ML GEL TOP (20:47)
[2021-11-27 20:56] LABS: Appearance Urine UA CLEAR; Bilirubin Urine UA NEGATIVE (NEGATIVE); Color Urine UA YELLOW; Glucose Urine UA NEGATIVE (Negative); Ketones Urine UA NEGATIVE (NEGATIVE); Leukocyte Esterase Urine UA NEGATIVE (NEGATIVE); Nitrite Urine UA NEGATIVE (Negative); Occult Blood Urine UA TRACE-LYSED (Negative); Protein Urine UA NEGATIVE (Negative); Urobilinogen Urine UA 0.2 E.U./dL (0.2); pH Urine UA 7.5 (4.5-8.0)
[2021-11-27 21:06] LABS: Bacteria Urine None Seen; Culture Indicated Urine Cult Not Indicated; RBC Urine 0-1/HPF (0-5/HPF); WBC Urine 0-1/HPF (0-5/HPF)
--- NOTE | 2021-11-27 22:22 | PC.NURSE ---
Addendum entered by Crystal Scott R.N. 11/27/21 23:56: 2315: Critical lab results received and reviewed. Per MD instructions, will not update at this time as values have remained stable from prior Original Note: Admission note: Pt admitted with hyponatremia. Spoke with primary admitting MD Dr Marroquin, orders obtained. Pt complains of nausea and generalized aching pain, denies other symptoms/needs. POCT blood glucose=63, snack provided. Pt states he has not eaten anything today. Will recheck after snack and continue to monitor. Pt oriented to room and unit procedures. Blackwell patent and draining clear yellow urine. Bed locked and in low position, call light within reach.
[2021-11-27 22:52] LABS: Blood Urea Nitrogen 11 mg/dL (9-20); Calcium 8.5 mg/dL (8.4-10.2); Carbon Dioxide 27 mmol/L (22-32); Estimated Glomerular Filt Rate > 60.0 mL/min (>60); Glucose 76 mg/dL (80-110); HEMOLYSIS < 15 (0-50); Potassium 3.9 mmol/L (3.4-5.1)
[2021-11-27 22:58] LABS: Sodium 107 mmol/L (137-145)
[2021-11-27 22:59] LABS: Chloride 74 mmol/L (98-107)
[2021-11-28] VITALS (13 sets, daily range): BP systolic 104–163; BP diastolic 57–88; PULSE 66–84; RESP 15–52; TEMP 36.1–36.9; O2SAT 97–99
[2021-11-28] MEDS: ONDANSETRON 4 MG/2 ML INJ IV ×4 (00:43→13:30)
[2021-11-28] MEDS: guaiFENesin Solution 100 MG/5 ML UDC PO ×2 (00:43→08:55)
[2021-11-28] MEDS: SODIUM CHLORIDE 0.9% 1,000 ML 100 ML IV ×2 (05:38→16:09)
[2021-11-28 06:22] LABS: BUN Creatinine Ratio 13.2 (6-22); Blood Urea Nitrogen 12 mg/dL (9-20); Calcium 8.6 mg/dL (8.4-10.2); Carbon Dioxide 26 mmol/L (22-32); Chloride 78 mmol/L (98-107); Estimated Glomerular Filt Rate > 60.0 mL/min (>60); Glucose 89 mg/dL (80-110); HEMOLYSIS < 15 (0-50); Potassium 3.6 mmol/L (3.4-5.1)
[2021-11-28 06:30] LABS: Sodium 110 mmol/L (137-145)
[2021-11-28 07:11] LABS: Basophils Absolute Auto 0 /uL (0-100); Basophils Percent Auto 0.2 % (0-2); Eosinophils Absolute Auto 100 /uL (0-450); Eosinophils Percent Auto 1.3 % (2-4); Hematocrit 32.2 % (41-53); Hemoglobin 12.1 g/dL (13.5-17.5); Lymphocytes Absolute Auto 1200 /uL (1100-4500); Lymphocytes Percent Auto 14.3 % (25-40); Mean Corpuscular HGB Conc 37.6 % (30-36); Mean Corpuscular Hemoglobin 31.8 PG (26-34); Mean Corpuscular Volume 84.7 fL (80-100); Monocytes Absolute Auto 800 /uL (0-900); Neutrophils Absolute Auto 6000 /uL (1500-7000); Neutrophils Percent Auto 74.2 % (50-75); Platelet Count 218 X10^3/uL (150-400); Red Blood Cell Count 3.79 X10^6/uL (4.5-5.9); Red Cell Distribution Width 12.5 % (11.6-14.8); White Blood Cell Count 8.1 X10^3/uL (4.5-11.0)
[2021-11-28 07:15] LABS: Add Manual Diff / Slide Review SLIDE REVIEW
[2021-11-28 07:32] LABS: RBC Morphology Normal Morphology
[2021-11-28] MEDS: METOPROLOL IR 25 MG TABLET PO ×2 (08:55→21:07)
[2021-11-28] MEDS: ACETAMINOPHEN 325 MG TABLET 650 MG PO (08:55)
--- NOTE | 2021-11-28 09:30 | CM.DANOTE ---
Addendum entered by ISABEL Heard 11/28/21 13:10: ADD: Per MD, ordering PT and agreeable with HH and signed the F2F anticipating HH needs. Pt improving and may be able to d.c tomorrow if stable. Addressing the bowel movement needs and foot pain/sleep issue. SW made HH referral to [facility] based on Vendor Calendar and availability for [place] ([place] does not service [facility]) and they have availability on Fri, 2 days from now, or Friday and can accept referral. SW faxed referral along with F2F and MD orders. Plan: SW to follow to confirm safe d/c plan home with spouse and family assist and new [facility] referral and any further identified needs. D/C summary needs to be faxed to [facility] at discharge. BF Original Note: Patient is an 81 yo male who was admitted on 11/27/21 for Weakness, low sodium. Pt has [facility] and [employer] for insurance and his PCP is Dr. Liu Alejo. EMR was reviewed. Per MD, pt with recent GLF and feeling ill for about 2 weeks and admitted for Lside PE and possible neoplastic nodules on imaging. SW met bedside with pt and explained role and he confirms he still lives in [place] with his and that they built another home onto their property and their adult Dtr and family lives there. Pt is independent with ADL's and drives and denies any hx of SNF but had [facility] when last admitted in March 2019. Pt states his spouse is DPOA and he would like to also add his adult Dtr as DPOA soon when they update their paperwork. Pt states he has newer diabetic foot pain that makes it so he cannot sleep and also hasn't had a bowel movement for a few days. Pt does not anticipate any SW needs but would be agreeable to HH if needed and working with PT. Pt could benefit from PT eval when medically appropriate towards confirming safe d/c planning recommendations. Plan: SW to follow for likely plan of d/c home with spouse and family assist pending PT eval and recommendations and r/o HH. ISABEL Heard Discharge Planning/Care Management CM Discharge Assessment Start: 11/28/21 09:28 Freq: Status: Active Protocol: Document 11/28/21 09:28 BF (Rec: 11/28/21 09:30 BF [id number]) Discharge Planning Assessment Assigned Pulverizer Feeder ISABEL Gross DPOA/Assigned Designee Name spouse Araceli and wants to add adult Dtr Advance Directives? No Advance Directives on File No History Provided By Patient,Medical Record Has Patient been admitted in last 30 No days? Prior Living Arrangements House Household Members spouse,children Type of transporation used prior to Drives own vehicle admit Independent with ADL's Yes Is patient alert and oriented? Yes Needs Assistance With Home Chores / Shopping Caregiver for Another No Comment Dtr was able to obtain a walker from a local community agency today. He declines the need for any additional DME needs for d/c. Patient/Family Preference Home with Home Health Comment Pending progress and likely PT orders Barriers to Discharge No Discharge Plan Home with Home Health Transportation Arrangement Family will drive patient home at time of discharge. Referrals Initiated Home Health Additional Comment Pending PT eval and recommendations Whiteboard Updated in Patient Room with Yes name and ext. # of Pulverizer Feeder Review Status In Process Please Provide Date Initial DC 11/28/21 Assessment Was Performed Next Review Type Continued Stay Review
[2021-11-28] MEDS: DOCUSATE 100 MG CAPSULE PO (12:06)
[2021-11-28] MEDS: polyethylene glycoL 3350 17 GM POWD.PACK PO (12:06)
--- NOTE | 2021-11-28 14:00 | PT.IIE ---
Medical History (Last Reviewed 11/28/21 @ 01:33 by Dc Gould DO) BPH (benign prostatic hyperplasia) Diabetes Hyperlipidemia Hypertension Skin cancer Physical Therapy Inpatient Evaluation/Re-Eval M1 PT/OT-IP Prior Functional Status Start: 11/28/21 16:24 Freq: NEEDED Status: Active Protocol: Document 11/28/21 14:00 AB (Rec: 11/28/21 16:39 AB [id number]) Medical Review Prior Functional Status Medical History Reviewed Yes Communication able to make needs known Mobility and Gait pt stated that he is modified independent with all mobilities and ambulated using a SPC outdoors but able to ambulate without AD indoors with occasional use of SPC Social History Household Members spouse Living Arrangements House Number of Floors (Floors) Two Floors Number of Stairs To Enter/Railing? pt stays on main level of the house has 3 steps L rail ascending to enter the house Home Environment High Toilet,Walk in Shower Home Equipment Front Wheel Walker,Straight Cane,Grab Bars In Shower Additional Social History Comment daughter lives next door and can assist as needed M2 PT-IP Current Condition Start: 11/28/21 16:24 Freq: NEEDED Status: Active Protocol: Document 11/28/21 14:00 AB (Rec: 11/28/21 16:39 AB [id number]) Physical Therapy Current Condition Current Condition Evaluation Date 11/28/21 Treatment Diagnosis L pneumothorax; pleural effusion; difficulty in walking Onset Date 11/27/21 M3 PT-IP Subjective Start: 11/28/21 16:24 Freq: NEEDED Status: Active Protocol: Document 11/28/21 14:00 AB (Rec: 11/28/21 16:39 AB [id number]) Subjective Physical Therapy Visit Type Type Initial Evaluation Visit Start Time 14:00 Visit Stop Time 14:33 Total Visit Minutes 33 Number of SIGNALS INTELLIGENCE ANALYSIS MANAGER Visits 0 Physical Therapy Visit Comments Patient Comments stated that he cannot stand and walk due to back weakness M4 PT-IP Mobility and Gait Start: 11/28/21 16:24 Freq: NEEDED Status: Active Protocol: Document 11/28/21 14:00 AB (Rec: 11/28/21 16:39 AB [email or web address]) PT-Bed Mobility Assessment Supine to Sit Supine to Sit Maximum Assistance,1 Person Assistance Sit to Supine Sit to Supine Moderate Assistance,Maximum Assistance,1 Person Assistance PT-Transfer Assessment Sit to and From Stand Sit to and from Stand Moderate Assistance,Maximum Assistance,1 Person Assistance ,Use of Upper Extremities Equipment Transfer Assistive Device Gait Belt,Front Wheeled Walker Orthotic/Prosthetic Devices or Brace: No Comments Mobility Comments pt supine in bed and stated that he has RLS and LE just jerks and moves around by itself. completed supine to sit x 2 attempts requiring max A and max cues. pt able to sit on EOB CGA. completed sit to stand mod to max A and cues. cued for use of FWW. attempted to ambulate but pt stated that he cannot and requested to sit back. pt stated that he feels weak on his LE and unable to ambulate. educated pt and pt agreed to try again. pt completed sit to stand max A and cues. pt stated again that he cannot stand. instructed to march in place and completed x 3 max A and cues using FWW for support. pt unable to elevated LE off the the floor much and has posterior knees leaning against the bed for support. pt sat back on EOB and stated that, that is all he can do for today and requested to go back to bed. completed sit to supine mod to max A and max cues. positioned pt in bed. call light and table placed within reach. informed pt and daughter regarding SNF rehab at this time and agreed. Gait Assessment Comments Gait Comments unable PT-Balance Assessment Sitting Balance and Reactions Static Sitting Balance Ability Good Dynamic Sitting Balance Ability Fair Standing Balance and Reactions Static Standing Balance Ability Poor Dynamic Standing Balance Ability Poor Device Used FWW M5 PT-IP Objective Assessments Start: 11/28/21 16:24 Freq: NEEDED Status: Active Protocol: Document 11/28/21 14:00 AB (Rec: 11/28/21 16:39 AB [id number]) Orientation Orientation/Cognition Level of Alertness Alert Orientation Name Language Function Ability No Deficits Noted Safety Awareness Decreased Safety Awareness Memory Description Short Term Impaired Gross Range of Motion Lower Extremity ROM Assessment Within Functional Limits Strength Lower Extremity Strength Hip 3+/5 Knee 3+/5 Sensation Assessment Sensation Sensation Description Numbness Comments Sensation Comments BLE neuropathy Muscle Tone Muscle Tone WNL Yes M6 PT-IP Treatment Start: 11/28/21 16:24 Freq: NEEDED Status: Active Protocol: Document 11/28/21 14:00 AB (Rec: 11/28/21 16:39 AB [email or web address]) Physical Therapy Treatment Education Education Provided Safety M7 PT-IP Assessment and Plan Start: 11/28/21 16:24 Freq: NEEDED Status: Active Protocol: Document 11/28/21 14:00 AB (Rec: 11/28/21 16:39 AB [id number]) PT Summary Assessment and Plan Potential Rehabilitation Potential Fair Status of Condition at Evaluation Evolving Summary Impairments Pain,ROM,Strength,Balance, Coordination,Sensation,Tone, Cognition,Bed Mobility, Transfers,Gait,Activity Tolerance Assessment Summary pt requiring max A with mobility and unable to ambulate at this time. pt will require SNF rehab to improve strength and mobility independence. Goals Bed Mobility Goal Standby Assistance Transfer Goal Standby Assistance,Front Wheeled Walker Gait Goal Standby Assistance,Front Wheel Walker Gait Distance 50 Other Goals improve bed mobility, transfers to mod I improve ambulation using FWW SBA 150 ft up/down 3 steps L rail SBA Days to Meet Goals 10 Frequency of Treatment Frequency Of Treatment Once a Day Treatment Plan Physical Therapy Treatment Plan Bed Mobility Training,Transfer Training,Gait Training, Therapeutic Exercise,Balance Retraining,Discharge Planning, Hot or Cold Pack,Neuromuscular Re-ed,Coordination Retraining Precautions Other Precautions falls Recommendations To Nursing Amount of Assist Needed 2 Person Assist Discharge Recommendations PT Discharge Recommendations SNF Rehab Transportation Needs at Discharge Wheelchair/Cabulance
[2021-11-28] MEDS: clonazePAM 0.5 MG TABLET PO ×2 (14:49→21:07)
--- NOTE | 2021-11-28 14:57 | DIET.CONS ---
Dietary Consultation Note Admission Date: 11/27/2021 20:12 Assessment: 81y M admitted with weakness and nausea found to have hyponatremia (Na 107) referred to nutrition for diet changes. Pt reports only eating apple sauce for past 4d secondary to nausea. At time of RD visit, pt finished ONS Ensure and stated it was refreshing. Pt declines smoothie and would prefer another Ensure at dinner time. Pt receiving saline IVF to slowly correct low sodium levels. Pt most concerned about not having bowel movement over past few days. RD reinforced pts POs have been very low, likely contributing to low stool bulk. Ht: 180.34 cm Wt: 88.5 kg BMI: 27.2 Last BM: 11/24/21 (11/27/21 20:25) MNA: 11 Gerard Score: 20 Diet: 11/28/21 Breakfast Carbohydrate Consistent Diet Diet Modifications: Carbohydrate level: Small (2 CHO) Bedtime snack: Yes Nutrition Percent Meal Consumed 10% 11/28/21 09:00 Labs: RBC 3.79 X10^6/uL (4.5-5.9) L 11/28/21 04:58 Hgb 12.1 g/dL (13.5-17.5) L 11/28/21 04:58 Hct 32.2 % (41-53) L 11/28/21 04:58 Creatinine 0.91 mg/dL (0.66-1.25) 11/28/21 04:58 Interventions: 1. Recc ONS Ensure Enlive this evening with meal then switch to ONS Glucerna bid or for meal with POs <75% while hospitalized and after d/c until appetite regulated. Electronically Signed by: Rosalina Chand 11/28/21 14:57 Clinical Dietitian [address] [id number]
[2021-11-28] MEDS: INSULIN LISPRO 100 UNIT/ML 3ML VIAL SUBCUT (17:39)
[2021-11-28] MEDS: FLUoxetine 10 MG CAPSULE PO (17:45)
[2021-11-28] MEDS: TAMSULOSIN 0.4 MG CAPSULE 0.8 MG PO (17:45)
[2021-11-28 18:01] LABS: BUN Creatinine Ratio 11.8 (6-22); Blood Urea Nitrogen 10 mg/dL (9-20); Calcium 8.3 mg/dL (8.4-10.2); Carbon Dioxide 25 mmol/L (22-32); Chloride 82 mmol/L (98-107); Estimated Glomerular Filt Rate > 60.0 mL/min (>60); Glucose 144 mg/dL (80-110); HEMOLYSIS < 15 (0-50); Potassium 3.9 mmol/L (3.4-5.1)
[2021-11-28 18:07] LABS: Sodium 112 mmol/L (137-145)
--- NOTE | 2021-11-28 19:49 | PM.HP.1 ---
History of Present Illness History of Present Illness Date Patient Seen: 11/28/21 Time Patient Seen: 12:20 Date of Onset of Symptoms: 11/13/21 Chief complaint: Weakness,nausea,low sodium Narrative: Patient is an 81-year-old male well known to me. Patient presents with increasing weakness. Two weeks ago approximately he had a viral illness with cough fever runny nose. Was tested for COVID was negative. He slowly improved with those symptoms over the course of 5-6 days but has been slowly becoming more and more weak. Has generalized weakness. He struggles to get motivated to get out of a chair. He was seen in clinic on Friday and at that time he barely was able to get out of the chair into a car and into the wheelchair. He denied any headaches visual symptoms. His appetite has been poor he has not been taking fluids since he has been ill. He has not had fevers for over a week. He is feeling like his cough and his breathing is back to normal. He had been treated for pneumonia over the weekend with Zithromax. Due to the fact that the he had findings of decreased breath sounds on his left base and he was started on Levaquin. For presumed community-acquired pneumonia. Otherwise there is no other change. He has not had any chest pain. He has had some nausea but no vomiting. He has had no changes bowel movements although he has not had a bowel movement. He is centrally has not eaten for 7 days. He has had minimal fluid intake. And otherwise is just not been feeling well. Labs were drawn on Friday and returned Friday afternoon and showed he profound hyponatremia although no other real abnormality of his labs. Chest x-ray showed a left pleural effusion. Due to the degree of his hyponatremia who was brought to the emergency room and admitted to the hospital. Patient has a history of left pleural effusion. Apparently had a traumatic insult in 2019. At that time he developed a pleural effusion. And it is slightly better than it was in the past. No other significant change. Past medical history is significant for: History of depression Type 2 diabetes with poly neuropathy Hypertension BPH Hyperlipidemia Past surgical history basal cell carcinoma removal Family history noncontributory no significant history of pulmonary early renal disease Social history: longstanding. Retired. Patient History Medical History BPH (benign prostatic hyperplasia) Diabetes Hyperlipidemia Hypertension Skin cancer Surgical History H/O cataract removal with insertion of prosthetic lens No pertinent past surgical history Family & Social History Social History: household members spouse Prior Living Arrangements House Safety & Behavioral: Feels Safe in Current Yes Environment Been Physically Hurt or No Threatened By a Person Suicidal Ideation Description None Suicide Plan Description No Plan Tobacco & Substance use: Smoking Status Former smoker alcohol intake current alcohol intake frequency holiday/special occasion Substance Use Type does not use Meds Home Medications and Allergies Home Medications Medication Instructions Recorded Confirmed Type glyburide 2.5 mg tablet 2.5 mg PO QAM 04/09/19 11/27/21 History hydrochlorothiazide 25 mg tablet 25 mg PO QAM 04/09/19 11/27/21 History lisinopril 20 mg tablet 20 mg PO QAM 04/09/19 11/27/21 History metformin 500 mg tablet 500 mg PO BID 04/09/19 11/27/21 History tamsulosin 0.4 mg capsule 0.8 mg PO QPM 04/09/19 11/27/21 History aspirin 81 mg capsule 81 mg PO QAM 11/27/21 11/27/21 History fluoxetine 10 mg capsule 10 mg PO QPM 11/27/21 11/27/21 History gabapentin 300 mg capsule 600 mg PO BEDTIME 11/27/21 11/27/21 History levofloxacin 500 mg tablet 500 mg PO DAILY 11/27/21 11/27/21 History metoprolol tartrate 25 mg tablet See Rx Instructions .ROUTE .COMPLEX 11/27/21 11/27/21 History Allergies Allergy/AdvReac Type Severity Reaction Status Date / Time ibuprofen Allergy Unknown Verified 11/27/21 18:39 Review of Systems Review of Systems Narrative: See above negative except for what is in history Exam Vital Signs (past 8 hours): - 11/28/21 12:00 11/28/21 16:45 Temperature 98.3 F 98.4 F Pulse Rate 73 69 Respiratory Rate 27 H 19 Blood Pressure 163/88 H 141/75 H Pulse Oximetry 99 98 Fraction of Inspired Oxygen 83 Oxygen Delivery Method Room Air Oxygen Flow Rate 0 Narrative Exam Narrative: Alert elderly male in no acute distress HEENT exam unremarkable. Neck supple without adenopathy JVD or bruits. Lungs are clear except for increased breath sounds left base. Heart regular rate and rhythm. Abdomen is soft positive bowel sounds. Extremities without cyanosis clubbing edema. Neurologic exam shows cranial nerves 2-12 are intact motor is 4+/5 reflexes 2+ and symmetric sensation appears intact. Did not stand up. Psychologically intact Objective Labs Result Diagrams: 11/28/21 04:58 11/28/21 17:39 Labs: Laboratory Results - last 24 hr 11/27/21 11/27/21 11/27/21 18:37 18:37 19:35 WBC 7.3 RBC 4.16 L Hgb 13.0 L Hct 35.0 L MCV 84.2 MCH 31.2 MCHC 37.0 H RDW 12.7 Plt Count 234 Neut % (Auto) 74.6 Lymph % (Auto) 12.6 L [place] % (Auto) 10.9 Eos % (Auto) 1.6 L Baso % (Auto) 0.3 Neut # (Auto) 5400 Lymph # (Auto) 900 L [place] # (Auto) 800 Eos # (Auto) 100 Baso # (Auto) 0 RBC Morphology Normal morphology Sodium Potassium Chloride Carbon Dioxide BUN Creatinine Estimated GFR BUN/Creatinine Ratio Glucose Calcium Procalcitonin 0.22 Urine Color Urine Appearance Urine pH Ur Specific [place] Urine Protein Urine Glucose (UA) Urine Ketones Urine Occult Blood Urine Nitrate Urine Bilirubin Urine Urobilinogen Ur Leukocyte Esterase Urine RBC Urine WBC Urine Bacteria Ur Culture Indicated? SARS-CoV-2 (PCR) Negative 11/27/21 11/27/21 11/28/21 20:45 22:15 04:58 WBC 8.1 RBC 3.79 L Hgb 12.1 L Hct 32.2 L MCV 84.7 MCH 31.8 MCHC 37.6 H RDW 12.5 Plt Count 218 Neut % (Auto) 74.2 Lymph % (Auto) 14.3 L [place] % (Auto) 10.0 Eos % (Auto) 1.3 L Baso % (Auto) 0.2 Neut # (Auto) 6000 Lymph # (Auto) 1200 [place] # (Auto) 800 Eos # (Auto) 100 Baso # (Auto) 0 RBC Morphology Normal morphology Sodium 107 L* Potassium 3.9 Chloride 74 L* Carbon Dioxide 27 BUN 11 Creatinine 0.92 Estimated GFR > 60.0 BUN/Creatinine Ratio 12.0 Glucose 76 L Calcium 8.5 Procalcitonin Urine Color Yellow Urine Appearance Clear Urine pH 7.5 Ur Specific [place] 1.010 Urine Protein Negative Urine Glucose (UA) Negative Urine Ketones Negative Urine Occult Blood Trace-lysed Urine Nitrate Negative Urine Bilirubin Negative Urine Urobilinogen 0.2 Ur Leukocyte Esterase Negative Urine RBC 0-1/hpf Urine WBC 0-1/hpf Urine Bacteria None seen Ur Culture Indicated? Cult not indicated SARS-CoV-2 (PCR) 11/28/21 11/28/21 04:58 17:39 WBC RBC Hgb Hct MCV MCH MCHC RDW Plt Count Neut % (Auto) Lymph % (Auto) [place] % (Auto) Eos % (Auto) Baso % (Auto) Neut # (Auto) Lymph # (Auto) [place] # (Auto) Eos # (Auto) Baso # (Auto) RBC Morphology Sodium 110 L* 112 L* Potassium 3.6 3.9 Chloride 78 L 82 L Carbon Dioxide 26 25 BUN 12 10 Creatinine 0.91 0.85 Estimated GFR > 60.0 > 60.0 BUN/Creatinine Ratio 13.2 11.8 Glucose 89 144 H Calcium 8.6 8.3 L Procalcitonin Urine Color Urine Appearance Urine pH Ur Specific [place] Urine Protein Urine Glucose (UA) Urine Ketones Urine Occult Blood Urine Nitrate Urine Bilirubin Urine Urobilinogen Ur Leukocyte Esterase Urine RBC Urine WBC Urine Bacteria Ur Culture Indicated? SARS-CoV-2 (PCR) Assessment & Plan Assessment & Plan narrative: Hyponatremia severe. I suspect this is secondary to inappropriate SIADH secondary to his viral infection with nausea vomiting and decreased p.o. intake. Otherwise he seems to be responding to his saline. Oral restrictions. Does not seem to have any significant cardiac response at this time. I do not think we have to do any further workup as long as he continues respond. Will slowly continue normal saline and hopefully over the next 72 hours will be able to switch to p.o. and discharged home. Patient understands will call if change. Will just have to see whether hold this or not. Profound weakness generalized. Defect or other changes. Do not believe he is central issues suspect secondary to to hyponatremia. Suspect will improve. Physical therapy and continue. Left pleural effusions CT scan shows question of mass. He has had this for some time. I suspect a secondary trauma will need to obtain PET scan but will deal with this as outpatient for I do not think that it is going to hinder his progress here in the hospital or his discharge. Constipation. Probably most likely secondary to lack of intake but will follow. Given MiraLax today. Certainly normal exam. Hypertension. Current least doing well. Will make no changes today and follow. Type 2 diabetes. Will hold his usual medicines and continue sliding scale. Will resume as his usual function continues to improve. Re-evaluate as outpatient. Code status. Patient would like to have full code but thinking about it. DVT prophylaxis. Will place on Lovenox. GI prophylaxis. Should be low risk but will follow. No treatment at this time. Disposition. Patient with severe hyponatremia. Will be slow replacement on for we do want to move too quickly. My guess is this will be 3-4 days of hospitalization. Patient does not being in the unit at this time. Is clinically otherwise stable and will follow. Discussed with him and his daughter. Time Spent With Patient Critical Care time: I spent a total of [] minutes of critical care time on this patient's care today; this time is exclusive of procedural time. Quality VTE Deep Vein Thrombosis/Pulmonary Embolism Present on Admission: No
[2021-11-28] MEDS: METFORMIN HCL 500 MG TABLET PO (21:07)
[2021-11-28] MEDS: GABAPENTIN 300 MG CAPSULE 600 MG PO (21:07)
[2021-11-28] MEDS: ZOLPIDEM 5 MG TABLET PO (21:08)
--- NOTE | 2021-11-28 22:31 | PC.NURSE ---
2200- Patient noted to be desaturating to low 80's while sleeping. 02 at 2 liters cannula applied. Will monitor.
[2021-11-29] MEDS: SODIUM CHLORIDE 0.9% 1,000 ML 100 ML IV ×3 (02:48→22:35)
[2021-11-29 04:30] VITALS: BP 126/56; PULSE 77; RESP 17; TEMP 36.4; O2SAT 97
[2021-11-29 06:20] LABS: Alanine Aminotransferase 27 IU/L (<50); Albumin 3.2 g/dL (3.5-5.0); Albumin Globulin Ratio 1.3 (1.0-2.8); Alkaline Phosphatase 40 U/L (38-126); Aspartate Aminotransferase 43 IU/L (17-59); BUN Creatinine Ratio 12.5 (6-22); Bilirubin Total 0.9 mg/dL (0.2-1.3); Blood Urea Nitrogen 12 mg/dL (9-20); Calcium 8.3 mg/dL (8.4-10.2); Carbon Dioxide 25 mmol/L (22-32); Chloride 87 mmol/L (98-107); Estimated Glomerular Filt Rate > 60.0 mL/min (>60); Globulin 2.4 g/dL (1.7-4.1); Glucose 118 mg/dL (80-110); HEMOLYSIS < 15 (0-50); Potassium 3.6 mmol/L (3.4-5.1); Total Protein 5.6 g/dL (6.3-8.2)
[2021-11-29 06:43] LABS: Sodium 116 mmol/L (137-145)
[2021-11-29 07:01] LABS: Add Manual Diff / Slide Review NO; Basophils Absolute Auto 0 /uL (0-100); Basophils Percent Auto 0.5 % (0-2); Eosinophils Absolute Auto 200 /uL (0-450); Hemoglobin 10.9 g/dL (13.5-17.5); Lymphocytes Absolute Auto 1000 /uL (1100-4500); Lymphocytes Percent Auto 16.7 % (25-40); Mean Corpuscular HGB Conc 37.6 % (30-36); Mean Corpuscular Hemoglobin 32.1 PG (26-34); Mean Corpuscular Volume 85.2 fL (80-100); Monocytes Absolute Auto 700 /uL (0-900); Monocytes Percent Auto 10.9 % (3-14); Neutrophils Absolute Auto 4200 /uL (1500-7000); Neutrophils Percent Auto 68.9 % (50-75); Platelet Count 193 X10^3/uL (150-400); Red Cell Distribution Width 12.6 % (11.6-14.8); White Blood Cell Count 6.1 X10^3/uL (4.5-11.0)
--- NOTE | 2021-11-29 07:32 | PM.PN.1 ---
Subjective Subjective Date Patient Seen: 11/29/21 Time Patient Seen: 07:32 Interval history: Patient had an uneventful night. Reports that he is feeling a little bit better this morning. Appetite is poor but denies nausea or vomiting. Has not been ambulating. Denies pain. Exam Vital Signs (past 8 hours): - 11/28/21 23:49 11/29/21 04:30 Temperature 96.9 F L 97.5 F L Pulse Rate 66 77 Respiratory Rate 18 17 Blood Pressure 104/57 L 126/56 L Pulse Oximetry 98 97 Fraction of Inspired Oxygen 83 Oxygen Delivery Method Room Air Oxygen Flow Rate 1 Narrative Exam Narrative: GENERAL: Alert and oriented, appearing stated age and in no acute distress, generally weak HEENT: Head normocephalic/atraumatic. Extraocular movements intact. LUNGS: Diminished inspiratory effort with decreased air movement in the left lower base. Otherwise, no wheezes, rhonchi or rales. CV: Normal S1 and S2 with regular rate and rhythm, no audible murmurs, rubs or gallops. ABDOMEN: Soft, non-tender, non-distended, no organomegaly. Positive bowel sounds. EXTREMITIES: No clubbing, cyanosis, or edema. NEURO: Cranial nerves II through XII grossly intact, no focal deficits. PSYCH: Alert and oriented x 3. SKIN: No concerning lesions. Objective Labs Result Diagrams: 11/29/21 05:35 11/29/21 05:35 Labs: Laboratory Results - last 24 hr 11/28/21 11/28/21 11/29/21 04:58 17:39 05:35 WBC 8.1 6.1 RBC 3.79 L 3.40 L Hgb 12.1 L 10.9 L Hct 32.2 L 29.0 L MCV 84.7 85.2 MCH 31.8 32.1 MCHC 37.6 H 37.6 H RDW 12.5 12.6 Plt Count 218 193 Neut % (Auto) 74.2 68.9 Lymph % (Auto) 14.3 L 16.7 L [place] % (Auto) 10.0 10.9 Eos % (Auto) 1.3 L 3.0 Baso % (Auto) 0.2 0.5 Neut # (Auto) 6000 4200 Lymph # (Auto) 1200 1000 L [place] # (Auto) 800 700 Eos # (Auto) 100 200 Baso # (Auto) 0 0 RBC Morphology Normal morphology Sodium 112 L* Potassium 3.9 Chloride 82 L Carbon Dioxide 25 BUN 10 Creatinine 0.85 Estimated GFR > 60.0 BUN/Creatinine Ratio 11.8 Glucose 144 H Calcium 8.3 L Total Bilirubin AST ALT Alkaline Phosphatase Total Protein Albumin Globulin Albumin/Globulin Ratio 11/29/21 05:35 WBC RBC Hgb Hct MCV MCH MCHC RDW Plt Count Neut % (Auto) Lymph % (Auto) [place] % (Auto) Eos % (Auto) Baso % (Auto) Neut # (Auto) Lymph # (Auto) [place] # (Auto) Eos # (Auto) Baso # (Auto) RBC Morphology Sodium 116 L* Potassium 3.6 Chloride 87 L Carbon Dioxide 25 BUN 12 Creatinine 0.96 Estimated GFR > 60.0 BUN/Creatinine Ratio 12.5 Glucose 118 H Calcium 8.3 L Total Bilirubin 0.9 AST 43 ALT 27 Alkaline Phosphatase 40 Total Protein 5.6 L Albumin 3.2 L Globulin 2.4 Albumin/Globulin Ratio 1.3 PFSH Medical History BPH (benign prostatic hyperplasia) Diabetes Hyperlipidemia Hypertension Skin cancer Surgical History H/O cataract removal with insertion of prosthetic lens No pertinent past surgical history Social History household members: spouse Smoking Status: Former smoker alcohol intake: current Assessment & Plan Assessment & Plan narrative: 1. Hyponatremia severe, likely secondary to acute viral illness, acute, labs trending up. Plan: Continue normal saline IV fluids and will trend labs. Will hold HCTZ. Continue PO fluid restriction. 2. Profound weakness generalized, likely secondary to acute viral illness and hyponatremia, acute, improved Plan: PT. 3. Left pleural effusions with question of mass on CT, chronic.? Plan: Plan for outpatient PET 4. Constipation, likely secondary to decreased fluid intake in last week, acute Plan: IVF, MiraLax. 5. Hypertension, chronic, labile in last 24 hours Plan: Home meds except HCTZ, will watch closely. 6. Type 2 diabetes, chronic.? Plan: Holding usual medicines, continue sliding scale.? Code: Full. DVT prophylaxis: Lovenox. GI prophylaxis: low risk, no treatment at this time.? FEN: NS at 100 cc/hour, diabetic diet Disposition.? Anticipate at least 2 more nights. Quality VTE Deep Vein Thrombosis/Pulmonary Embolism Present on Admission: No
[2021-11-29 08:00] VITALS: BP 120/54; PULSE 68; RESP 13; TEMP 36.1; O2SAT 99
[2021-11-29] MEDS: ENOXAPARIN 40 MG/0.4 ML SYRINGE SUBCUT (08:58)
[2021-11-29] MEDS: glyBURIDE 2.5 MG TABLET PO (08:58)
[2021-11-29] MEDS: ASPIRIN EC 81 MG TABLET PO (08:59)
[2021-11-29] MEDS: METFORMIN HCL 500 MG TABLET PO ×2 (08:59→20:00)
[2021-11-29] MEDS: METOPROLOL IR 50 MG TABLET PO (08:59)
[2021-11-29] MEDS: lisinopriL 20 MG TABLET PO (08:59)
--- NOTE | 2021-11-29 11:14 | PC.NURSE ---
0800- Pt is requesting to sleep and defer physical assessment, meds, meal until he is ready to fully wake up. VSS. NS infusing to patent, peripheral IV, Placed call light in easy reach and instructed pt in use and to wait for assistance before getting OOB. He verbalizes understanding. Dr. Young rounded at bedside ~1030. Discussed sodium level, VS. Requested clarification of orders for hctz. Orders received to discontinue.
[2021-11-29 12:00] VITALS: BP 104/58; PULSE 64; RESP 23; TEMP 36.4; O2SAT 99
[2021-11-29] MEDS: INSULIN LISPRO 100 UNIT/ML 3ML VIAL SUBCUT (12:49)
[2021-11-29 16:00] VITALS: BP 120/64; PULSE 62; RESP 17; TEMP 36.7; O2SAT 100
--- NOTE | 2021-11-29 16:20 | PT.IPTN ---
Current Diagnoses Syndrome of inappropriate secretion of antidiuretic hormone (11/27/21) Physical Therapy Treatment Note M2 PT-IP Current Condition Start: 11/28/21 16:24 Freq: NEEDED Status: Active Protocol: Document 11/29/21 16:20 AB (Rec: 11/29/21 17:05 AB [email or web address]) Physical Therapy Current Condition Current Condition Evaluation Date 11/28/21 Treatment Diagnosis hyponatremia; pleural effusion ; difficulty in walking Onset Date 11/27/21 M3 PT-IP Subjective Start: 11/28/21 16:24 Freq: NEEDED Status: Active Protocol: Document 11/29/21 16:20 AB (Rec: 11/29/21 17:05 AB [email or web address]) Subjective Physical Therapy Visit Type Type Treatment Note Visit Start Time 16:20 Visit Stop Time 16:40 Total Visit Minutes 20 Number of BOILER/CHILLER OPERATOR Visits 0 Physical Therapy Visit Comments Patient Comments initially refusing PT and stated that he just got out of the bed with nursing but agreed for PT to check back; checked back on pt after ~ 45 min and pt agreed to do PT M4 PT-IP Mobility and Gait Start: 11/28/21 16:24 Freq: NEEDED Status: Active Protocol: Document 11/29/21 16:20 AB (Rec: 11/29/21 17:05 AB [email or web address]) PT-Transfer Assessment Sit to and From Stand Sit to and from Stand Minimal Assistance,1 Person Assistance,Use of Upper Extremities Equipment Transfer Assistive Device Gait Belt,Front Wheeled Walker Orthotic/Prosthetic Devices or Brace: No Comments Mobility Comments pt sitting on chair. completed sit to stand min A and cues. completed standing marches min A and then took a few steps forward and backwards ~ 8 ft. pt sat back down. RR increase to ~ 40 but pt without complaints and does not seen to be in distress. O2 sat 99% at room air. pt agreed to do more ambulation and completed sit to stand min A and cues ambulated ~ 10 ft using FWW min A and cues. pt stated that he feels better today. pt sat back on chair. positioned back on chair. call light and table placed within reach. Gait Assessment Gait Gait Assistance Required: Minimum Assistance,1 Person Assist Distance (Feet) 10 Assistive Devices Assistive Device Gait Belt,Front Wheeled Walker Orthotic/Prosthetic Devices or Brace: No Gait Deviations General Gait Pattern Decreased Stride Length, Decreased Feet Clearance Factors Limiting Gait Function Factors Limiting Gait Function Decreased Activity Tolerance, Decreased Sensation,Decreased Strength,Poor Balance M5 PT-IP Objective Assessments Start: 11/28/21 16:24 Freq: NEEDED Status: Active Protocol: Document 11/28/21 14:00 AB (Rec: 11/28/21 16:39 AB [email or web address]) Orientation Orientation/Cognition Level of Alertness Alert Orientation Name Language Function Ability No Deficits Noted Safety Awareness Decreased Safety Awareness Memory Description Short Term Impaired Gross Range of Motion Lower Extremity ROM Assessment Within Functional Limits Strength Lower Extremity Strength Hip 3+/5 Knee 3+/5 Sensation Assessment Sensation Sensation Description Numbness Comments Sensation Comments BLE neuropathy Muscle Tone Muscle Tone WNL Yes M6 PT-IP Treatment Start: 11/28/21 16:24 Freq: NEEDED Status: Active Protocol: Document 11/29/21 16:20 AB (Rec: 11/29/21 17:05 AB [email or web address]) Physical Therapy Treatment Education Education Provided Safety M7 PT-IP Assessment and Plan Start: 11/28/21 16:24 Freq: NEEDED Status: Active Protocol: Document 11/29/21 16:20 AB (Rec: 11/29/21 17:05 AB [email or web address]) PT Summary Assessment and Plan Potential Rehabilitation Potential Good Summary Impairments Pain,ROM,Strength,Balance, Coordination,Sensation,Tone, Cognition,Bed Mobility, Transfers,Gait,Activity Tolerance Progress Towards Goals Slow Progress due to Medical Issues,Slow Progress due to Activity Tolerance Assessment Summary pt progressing slowly with mobility and able to ambulate 10 ft today using a FWW min A and cues. pt continues to have decrease activity tolerance affecting mobility. will continue to assess progress for safe d/c plan. Goals Bed Mobility Goal Standby Assistance Transfer Goal Standby Assistance,Front Wheeled Walker Gait Goal Standby Assistance,Front Wheel Walker Gait Distance 50 Other Goals improve bed mobility, transfers to mod I improve ambulation using FWW SBA 150 ft up/down 3 steps L rail SBA Days to Meet Goals 10 Frequency of Treatment Frequency Of Treatment Once a Day Treatment Plan Physical Therapy Treatment Plan Bed Mobility Training,Transfer Training,Gait Training, Therapeutic Exercise,Balance Retraining,Discharge Planning, Hot or Cold Pack,Neuromuscular Re-ed,Coordination Retraining Precautions Other Precautions falls Recommendations To Nursing Amount of Assist Needed 1 Person Assist Discharge Recommendations PT Discharge Recommendations SNF Rehab Transportation Needs at Discharge Wheelchair/Cabulance
[2021-11-29] MEDS: FLUoxetine 10 MG CAPSULE PO (17:30)
[2021-11-29] MEDS: TAMSULOSIN 0.4 MG CAPSULE 0.8 MG PO (17:30)
[2021-11-29] MEDS: clonazePAM 0.5 MG TABLET PO (20:00)
[2021-11-29] MEDS: ZOLPIDEM 5 MG TABLET PO (20:00)
[2021-11-29] MEDS: GABAPENTIN 300 MG CAPSULE 600 MG PO (20:00)
[2021-11-29] MEDS: METOPROLOL IR 25 MG TABLET PO (20:00)
[2021-11-29 20:25] VITALS: BP 124/70; PULSE 77; RESP 16; TEMP 36.6; O2SAT 100
[2021-11-30] VITALS: PULSE 55; RESP 12
[2021-11-30 04:35] VITALS: BP 118/56; PULSE 70; RESP 13; TEMP 35.8; O2SAT 98
[2021-11-30 04:41] LABS: Basophils Absolute Auto 100 /uL (0-100); Basophils Percent Auto 0.9 % (0-2); Eosinophils Absolute Auto 200 /uL (0-450); Eosinophils Percent Auto 3.8 % (2-4); Hematocrit 29.3 % (41-53); Hemoglobin 10.6 g/dL (13.5-17.5); Lymphocytes Absolute Auto 1300 /uL (1100-4500); Lymphocytes Percent Auto 19.9 % (25-40); Mean Corpuscular HGB Conc 36.1 % (30-36); Mean Corpuscular Hemoglobin 31.4 PG (26-34); Mean Corpuscular Volume 87.1 fL (80-100); Monocytes Absolute Auto 700 /uL (0-900); Monocytes Percent Auto 10.9 % (3-14); Neutrophils Absolute Auto 4100 /uL (1500-7000); Neutrophils Percent Auto 64.5 % (50-75); Platelet Count 200 X10^3/uL (150-400); Red Blood Cell Count 3.36 X10^6/uL (4.5-5.9); Red Cell Distribution Width 12.6 % (11.6-14.8); White Blood Cell Count 6.3 X10^3/uL (4.5-11.0)
[2021-11-30] MEDS: guaiFENesin Solution 100 MG/5 ML UDC PO ×2 (04:42→08:36)
[2021-11-30 04:48] LABS: BUN Creatinine Ratio 13.2 (6-22); Blood Urea Nitrogen 12 mg/dL (9-20); Calcium 8.4 mg/dL (8.4-10.2); Carbon Dioxide 26 mmol/L (22-32); Estimated Glomerular Filt Rate > 60.0 mL/min (>60); Glucose 89 mg/dL (80-110); HEMOLYSIS < 15 (0-50)
[2021-11-30 04:59] LABS: Chloride 92 mmol/L (98-107); Potassium 4.3 mmol/L (3.4-5.1); Sodium 121 mmol/L (137-145)
[2021-11-30 05:10] LABS: Add Manual Diff / Slide Review SLIDE REVIEW
[2021-11-30 06:13] LABS: RBC Morphology Normal Morphology
[2021-11-30 08:00] VITALS: BP 121/64; PULSE 62; RESP 24; TEMP 36.2; O2SAT 100
--- NOTE | 2021-11-30 08:32 | P.PN_ITS ---
Subjective Subjective Date Patient Seen: 11/30/21 Time Patient Seen: 08:32 Interval history: Patient seen in follow-up of hyponatremia. Overall feeling better. No other significant change strength is slowly improving. Getting back to his normal self. No nausea no vomiting. Exam Vital Signs (past 8 hours): - 11/30/21 04:35 Temperature 96.5 F L Pulse Rate 70 Respiratory Rate 13 Blood Pressure 118/56 L Pulse Oximetry 98 Fraction of Inspired Oxygen 83 Oxygen Delivery Method Nasal Cannula Oxygen Flow Rate 0 Narrative Exam Narrative: Alert elderly male smiling in bed no acute distress Lungs are clear. Heart regular rate and rhythm. Extremities without edema. Objective Labs Result Diagrams: 11/30/21 04:28 11/30/21 04:28 Labs: Laboratory Results - last 24 hr 11/30/21 11/30/21 04:28 04:28 WBC 6.3 RBC 3.36 L Hgb 10.6 L Hct 29.3 L MCV 87.1 MCH 31.4 MCHC 36.1 H RDW 12.6 Plt Count 200 Neut % (Auto) 64.5 Lymph % (Auto) 19.9 L [place] % (Auto) 10.9 Eos % (Auto) 3.8 Baso % (Auto) 0.9 Neut # (Auto) 4100 Lymph # (Auto) 1300 [place] # (Auto) 700 Eos # (Auto) 200 Baso # (Auto) 100 RBC Morphology Normal morphology Sodium 121 L Potassium 4.3 Chloride 92 L Carbon Dioxide 26 BUN 12 Creatinine 0.91 Estimated GFR > 60.0 BUN/Creatinine Ratio 13.2 Glucose 89 Calcium 8.4 [facility] Medical History BPH (benign prostatic hyperplasia) Diabetes Hyperlipidemia Hypertension Skin cancer Surgical History H/O cataract removal with insertion of prosthetic lens No pertinent past surgical history Social History household members: spouse Smoking Status: Former smoker alcohol intake: current Assessment & Plan Assessment & Plan narrative: Hyponatremia. Severe much improved. We discussed options. Were going to discontinue IV fluids we will continue on fluid restriction off of hydrochlorothiazide and re-evaluate tomorrow if stable can go home. Profound weakness generalized. Secondary to dehydration acute viral illness and hyponatremia. Acute. Much improved. Continue PT. Hope discharge tomorrow. Left pleural effusion with questionable mass. Probably benign. But certainly chronic and present. Will need PET scan as outpatient. Will set up. When I follow. Constipation. Continue MiraLax Hypertension. Chronic. Stable overall. May need to adjust medicines as outpatient. Type 2 diabetes. Restart usual medicines. Code status full DVT prophylaxis on Lovenox. GI prophylaxis low risk. Disposition. Discontinue [place]. Discontinue IV antibiotics. If stable can go home tomorrow. Follow up with me early next week. Time Spent With Patient Critical Care time: I spent a total of [] minutes of critical care time on this patient's care t violeta; this time is exclusive of procedural time. Quality VTE Deep Vein Thrombosis/Pulmonary Embolism Present on Admission: No
[2021-11-30] MEDS: METFORMIN HCL 500 MG TABLET PO ×2 (08:36→20:43)
[2021-11-30] MEDS: lisinopriL 20 MG TABLET PO (08:36)
[2021-11-30] MEDS: METOPROLOL IR 50 MG TABLET PO (08:36)
[2021-11-30] MEDS: DOCUSATE 100 MG CAPSULE PO ×2 (08:36→20:44)
[2021-11-30] MEDS: glyBURIDE 2.5 MG TABLET PO (08:36)
[2021-11-30] MEDS: ENOXAPARIN 40 MG/0.4 ML SYRINGE SUBCUT (08:36)
[2021-11-30] MEDS: polyethylene glycoL 3350 17 GM POWD.PACK PO ×2 (08:36→20:44)
[2021-11-30] MEDS: ASPIRIN EC 81 MG TABLET PO (08:36)
--- NOTE | 2021-11-30 11:09 | PT.IPTN ---
Current Diagnoses Syndrome of inappropriate secretion of antidiuretic hormone (11/27/21) Physical Therapy Treatment Note M2 PT-IP Current Condition Start: 11/28/21 16:24 Freq: NEEDED Status: Active Protocol: Document 11/29/21 16:20 AB (Rec: 11/29/21 17:05 AB [email or web address]) Physical Therapy Current Condition Current Condition Evaluation Date 11/28/21 Treatment Diagnosis hyponatremia; pleural effusion ; difficulty in walking Onset Date 11/27/21 M3 PT-IP Subjective Start: 11/28/21 16:24 Freq: NEEDED Status: Active Protocol: Document 11/30/21 10:46 KS (Rec: 11/30/21 11:36 KS [id number]) Subjective Physical Therapy Visit Type Type Treatment Note Visit Start Time 10:46 Visit Stop Time 11:09 Total Visit Minutes [address] WORKER Visits 1 Physical Therapy Visit Comments Patient Comments Pt agreeable to working w/ PT. M4 PT-IP Mobility and Gait Start: 11/28/21 16:24 Freq: NEEDED Status: Active Protocol: Document 11/30/21 10:46 [place] (Rec: 11/30/21 11:36 KS [id number]) PT-Bed Mobility Assessment Supine to Sit Supine to Sit Contact Guard Assistance,1 Person Assistance,Head of Bed Elevated Sit to Supine Sit to Supine Contact Guard Assistance,1 Person Assistance,Head of Bed Elevated Scooting Scooting to Edge of Bed Contact Guard Assistance Scooting Up and Down in Bed Contact Guard Assistance PT-Transfer Assessment Sit to and From Stand Sit to and from Stand Contact Guard Assistance,1 Person Assistance,Use of Upper Extremities Equipment Transfer Assistive Device Gait Belt,Front Wheeled Walker Orthotic/Prosthetic Devices or Brace: No Transfers Transfer Destination Bed Transfer Technique Pt ambulated w/ FWW Transfer Ability Level of Assist Contact Guard Assistance,1 Person Assistance,Use of Upper Extremities Comments Mobility Comments Pt in bed upon arrival and eager to ambulate. Pt CGA for sup<>sit w/ HOB elevated and scooting EOB as well as sit<> stand w/ FWW. Pt slightly impulsive and pulling up from FWW when standing. Cued pt on proper sit<>Stand technique and pt able to complete safely x2. Pt then ambulated ~60 ft around room w/ FWW and CGA. Pt required frequent cues for breathing as RR increased significnatly w/ ambulation. Pt denied SOB. Min cues for upright posture/FWW use also. Pt then returned to bed CGA and performed ankle pumps and glute sets in bed. Pt agreeable to use FWW at home. Left in bed w/ alarm on and all needs in reach. Gait Assessment Gait Gait Assistance Required: Contact Guard Assist,1 Person Assist Distance (Feet) 60 Assistive Devices Assistive Device Gait Belt,Front Wheeled Walker Gait Deviations General Gait Pattern Decreased Stride Length, Decreased Feet Clearance Factors Limiting Gait Function Factors Limiting Gait Function Decreased Activity Tolerance, Decreased Sensation,Decreased Strength,Poor Balance Comments Gait Comments Please refer to mobility section for details. PT-Balance Assessment Sitting Balance and Reactions Static Sitting Balance Ability Good Dynamic Sitting Balance Ability Good Standing Balance and Reactions Static Standing Balance Ability Good Dynamic Standing Balance Ability Fair Device Used FWW M5 PT-IP Objective Assessments Start: 11/28/21 16:24 Freq: NEEDED Status: Active Protocol: Document 11/28/21 14:00 AB (Rec: 11/28/21 16:39 AB [id number]) Orientation Orientation/Cognition Level of Alertness Alert Orientation Name Language Function Ability No Deficits Noted Safety Awareness Decreased Safety Awareness Memory Description Short Term Impaired Gross Range of Motion Lower Extremity ROM Assessment Within Functional Limits Strength Lower Extremity Strength Hip 3+/5 Knee 3+/5 Sensation Assessment Sensation Sensation Description Numbness Comments Sensation Comments BLE neuropathy Muscle Tone Muscle Tone WNL Yes M6 PT-IP Treatment Start: 11/28/21 16:24 Freq: NEEDED Status: Active Protocol: Document 11/30/21 10:46 KS (Rec: 11/30/21 11:36 KS [id number]) Physical Therapy Treatment Exercises Exercises Ankle Pumps,Gluteal Sets Education Education Provided Safety M7 PT-IP Assessment and Plan Start: 11/28/21 16:24 Freq: NEEDED Status: Active Protocol: Document 11/30/21 10:46 KS (Rec: 11/30/21 11:36 KS [id number]) PT Summary Assessment and Plan Potential Rehabilitation Potential Good Summary Impairments Pain,ROM,Strength,Balance, Coordination,Sensation,Tone, Cognition,Bed Mobility, Transfers,Gait,Activity Tolerance Progress Towards Goals Slow Progress due to Medical Issues,Slow Progress due to Activity Tolerance Assessment Summary Pt tolerating more ambulation today and reported ambulating w/ nursing staff as well. He ambulated ~60 ft w/ FWW and cues for breathing and upright posture. If going home, pt will need to complete stair training, improve gait distance prior to d/c. He would benefit from HHPT to improve tolerance for activity and balance. Goals Bed Mobility Goal Standby Assistance Transfer Goal Standby Assistance,Front Wheeled Walker Gait Goal Standby Assistance,Front Wheel Walker Gait Distance 50 Other Goals improve bed mobility, transfers to mod I improve ambulation using FWW SBA 150 ft up/down 3 steps L rail SBA Days to Meet Goals 10 Frequency of Treatment Frequency Of Treatment Once a Day Treatment Plan Physical Therapy Treatment Plan Bed Mobility Training,Transfer Training,Gait Training, Therapeutic Exercise,Balance Retraining,Discharge Planning, Hot or Cold Pack,Neuromuscular Re-ed,Coordination Retraining Precautions Other Precautions falls Recommendations To Nursing Amount of Assist Needed 1 Person Assist Discharge Recommendations PT Discharge Recommendations Home with 09/06 Assist Available,Home Health,SNF Rehab Transportation Needs at Discharge Wheelchair/Cabulance
[2021-11-30 12:00] VITALS: BP 97/52; PULSE 63; RESP 15; TEMP 36.8; O2SAT 96
[2021-11-30] MEDS: INSULIN LISPRO 100 UNIT/ML 3ML VIAL SUBCUT (13:27)
[2021-11-30 16:22] VITALS: BP 127/65; PULSE 65; RESP 16; TEMP 36.4; O2SAT 99
[2021-11-30] MEDS: TAMSULOSIN 0.4 MG CAPSULE 0.8 MG PO (17:31)
[2021-11-30] MEDS: FLUoxetine 10 MG CAPSULE PO (17:31)
[2021-11-30 20:00] VITALS: BP 140/73; PULSE 76; RESP 19; TEMP 36.2; O2SAT 99
[2021-11-30] MEDS: GABAPENTIN 300 MG CAPSULE 600 MG PO (20:43)
[2021-11-30] MEDS: METOPROLOL IR 25 MG TABLET PO (20:43)
[2021-11-30] MEDS: clonazePAM 0.5 MG TABLET PO (20:44)
[2021-11-30] MEDS: ZOLPIDEM 5 MG TABLET PO (20:44)
[2021-12-01 02:00] VITALS: BP 125/72; PULSE 70; RESP 19; TEMP 36.1; O2SAT 98
[2021-12-01 05:12] LABS: BUN Creatinine Ratio 13.6 (6-22); Blood Urea Nitrogen 11 mg/dL (9-20); Carbon Dioxide 28 mmol/L (22-32); Chloride 96 mmol/L (98-107); Estimated Glomerular Filt Rate > 60.0 mL/min (>60); Glucose 108 mg/dL (80-110); HEMOLYSIS < 15 (0-50); Potassium 4.1 mmol/L (3.4-5.1); Sodium 126 mmol/L (137-145)
[2021-12-01 08:00] VITALS: BP 144/71; PULSE 74; RESP 17; TEMP 36.6; O2SAT 98
[2021-12-01 08:32] VITALS: BP 125/72
[2021-12-01] MEDS: ASPIRIN EC 81 MG TABLET PO (08:32)
[2021-12-01] MEDS: ENOXAPARIN 40 MG/0.4 ML SYRINGE SUBCUT (08:32)
[2021-12-01] MEDS: glyBURIDE 2.5 MG TABLET PO (08:32)
[2021-12-01] MEDS: lisinopriL 20 MG TABLET PO (08:32)
[2021-12-01] MEDS: METOPROLOL IR 50 MG TABLET PO (08:32)
[2021-12-01] MEDS: METFORMIN HCL 500 MG TABLET PO (08:32)
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
--- NOTE | 2021-12-01 11:24 | PC.NURSE ---
Addendum entered by Opal Dawson R.N. 12/01/21 12:43: Pt ride is here. Escorted by staff via W/C to waiting vehicle. D/C in stable condition. Addendum entered by Opal Dawson R.N. 12/01/21 12:02: Orders for D/C received, HL discontinued intact. Home instructions given w/apparent understanding. Awaiting transportation home. Original Note: Pt sitting in chair, denies discomfort. HL LFA intact/patent Awaiting orders for discharge this morning.
--- NOTE | 2021-12-01 12:03 | CM.DPC ---
DCP Cont: Patient is discharging home today. Met with him and gave him [facility] brochure. Called Princess at [facility] and updated her on discharge. Patient also was given copy of [facility]. He was appreciative of the care he received. Faxed DC Summary, included orders and face to face as well, to [facility]. P: Patient is discharging home with [facility]. Jacqui Lovelace RN/Apprenticeship Representative
== END 2021-12-01 12:45 | disposition home or self-care (01) | DRG 641 ==
LOC: ED 20:12 → AC 20:13 → ICU 21:01
PROVIDERS: Student in an Organized Health Care Education/Training Program; Admitting Provider Family Medicine; Emergency Provider Emergency Medicine; PCP Family Medicine; Referring Provider Emergency Medicine; Visit Provider Family Medicine
DX: E87.1 Hypo-osmolality and hyponatremia (principal); J90 Pleural effusion, not elsewhere classified; K59.00 Constipation, unspecified; I10 Essential (primary) hypertension; E11.9 Type 2 diabetes mellitus without complications; N40.1 Benign prostatic hyperplasia with lower urinary tract symptoms; Z87.891 Personal history of nicotine dependence; Z79.84 Long term (current) use of oral hypoglycemic drugs; Z20.822 Contact with and (suspected) exposure to COVID-19; R05.1 Acute cough
CPT/HCPCS: 36415; 51798; 71046; 71260; 74177; 80048; 80053; 81001; 82550; 82553; 82962; 83690; 83735; 84145; 84484; 85025; 87635; 93005; 93010; 96361; 96374; 97116; 97162; 97530; 99238; 99284; 99285; C9803; J1650; J1815; J2405; Q9967

== ENCOUNTER → 2022-10-14 11:15 | Outpatient (CLI) | payer MEDICARE, SELFPAY ==
[2021-11-27 20:25] VITALS: BMI 27.2
[2022-10-14 12:46] LABS: Creatine Kinase 123 U/L (55-170)
== END ==
PROVIDERS: PCP Family Medicine; Referring Provider Family Medicine; Visit Provider Family Medicine
DX: G72.9 Myopathy, unspecified (principal)
CPT/HCPCS: 36415; 82550

== ENCOUNTER 2023-01-25 17:05 | Emergency (ER) | payer MEDICARE, SELFPAY ==
[2021-11-27 20:25] VITALS: BMI 27.2
[2023-01-25 17:09] VITALS: BP 232/102; PULSE 77; RESP 16; TEMP 36.2; O2SAT 99; BMI 28.3
--- NOTE | 2023-01-25 17:22 | ED_ITS ---
HPI - General Adult General Chief complaint: Hypertension Stated complaint: High blood pressure Time Seen by Provider: 01/25/23 17:15 History of Present Illness HPI narrative: 82-year-old male former smoker with history of hypertension, hyperlipidemia and diabetes presents with family in the chief complaint of gradually rising blood pressure in the absence of symptoms over the past few weeks. Specifically he denies any headache or blurred vision, no numbness, tingling or weakness. No chest pain, shortness of breath or exercise intolerance. He has no abdominal pain, nausea, vomiting or diarrhea. He had originally been on metoprolol 25 mg p.o. b.i.d. and over the course of the past few weeks as gradually increased to 75 mg twice daily at the instruction of his primary care provider. He noticed BP today in the 230s and came to see us for evaluation. Related Data Home Medications Medication Instructions Recorded Confirmed glyburide 2.5 mg tablet 2.5 mg PO QAM 04/09/19 11/28/22 metformin 500 mg tablet 500 mg PO BID 04/09/19 11/28/22 tamsulosin 0.4 mg capsule 0.8 mg PO QPM 04/09/19 11/28/22 aspirin 81 mg capsule 81 mg PO QAM 11/27/21 11/28/22 fluoxetine 10 mg capsule 10 mg PO QPM 11/27/21 11/28/22 gabapentin 300 mg capsule 600 mg PO BEDTIME 11/27/21 11/28/22 metoprolol tartrate 25 mg tablet See Rx Instructions .Route .COMPLEX 11/27/21 11/28/22 atorvastatin 10 mg tablet 10 mg PO DAILY 11/28/22 11/28/22 ketoconazole 2 % topical cream 1 applic topical DAILY 11/28/22 11/28/22 Previous Rx's Medication Instructions Recorded amlodipine 5 mg tablet (Norvasc) 5 mg PO DAILY #14 tabs 01/25/23 Allergies Allergy/AdvReac Type Severity Reaction Status Date / Time ibuprofen Allergy Unknown Verified 11/28/22 08:30 Review of Systems Review of Systems Narrative: GENERAL: Denies chills, fatigue, malaise, fever, sweats. HEENT: Denies sinus pain, ear pain, sore throat, difficulty swallowing, dizziness. RESPIRATORY: Denies dyspnea, cough, wheezing, hemoptysis, sputum. CARDIOVASCULAR: Denies chest pain, palpitations, orthopnea, edema, GASTROINTESTINAL: Denies nausea, vomiting, abdominal pain, diarrhea, constipation, melena. : Denies dysuria, frequency, incontinence, hematuria, urinary retention. MUSCULOSKELETAL: denies weakness, joint pain, or bony pain SKIN: Denies rash, skin lesions, or other NEUROLOGIC: Denies weakness, headache, numbness, change in speech, confusion, seizures, incoordination. PSYCHIATRIC: No concerning psychosocial issues. 12 point review of systems is negative except for those stated above Patient History Medical History BPH (benign prostatic hyperplasia) BPH w urinary obs/LUTS Diabetes Essential hypertension History of tobacco use Hyperlipidemia Hypertension Mixed hyperlipidemia Skin cancer Surgical History H/O cataract removal with insertion of prosthetic lens No pertinent past surgical history Social History marital status: number of children: 2 household members: spouse Smoking Status: Former smoker alcohol intake: current Smoking Status: Former smoker alcohol intake frequency: holidays/special occasions only Substance Use Type: does not use Exam Narrative Exam Narrative: GENERAL: [82] year old patient appears stated age. Well-developed patient, in mild distress. HEAD: Atraumatic. Normocephalic. EYES: Pupils equal round and reactive. Extraocular motions intact. No scleral icterus. No injection or drainage. ENT: Nose without bleeding, purulent drainage. Throat without erythema, tonsillar hypertrophy or exudate. Airway patent. NECK: Trachea midline. Non tender CARDIOVASCULAR: Regular rate and rhythm without murmurs, gallops, or rubs. RESPIRATORY: Clear to auscultation. Breath sounds equal bilaterally. No wheezes, rales, or rhonchi. GASTROINTESTINAL: Abdomen soft, non-tender, nondistended. EXTREMITIES: No edema or joint tenderness. BACK: Nontender without deformity or crepitance. No flank tenderness. NEURO: AOx3. SKIN: No rash or erythema of visible areas Initial Vital Signs Initial Vital Signs: Vital Signs Temperature 97.1 F L 01/25/23 17:09 Pulse Rate 77 01/25/23 17:09 Respiratory Rate 16 01/25/23 17:09 Blood Pressure 232/102 H 01/25/23 17:09 Pulse Oximetry 99 01/25/23 17:09 Oxygen Delivery Method Room Air 01/25/23 17:09 Course Orders Ordered: ED Orders 01/25/23 17:23 Complete Blood Count AUTO DIFF Stat Comprehensive Metabolic Panel Stat Lipase Stat Magnesium Stat NT-proBNP (BNP-Adult 18+) Stat PTT Partial Thromboplastin Mendoza Stat Prothrombin Time INR Stat Troponin & CK Cardiac Panel Stat 01/25/23 17:25 XR chest 1V Stat EKG-12 Lead Stat Discontinued Medications Amlodipine Besylate (Amlodipine 5 Mg Tablet) 5 mg PO NOW ONE Stop: 01/25/23 18:13 Last Admin: 01/25/23 18:16 Dose: 5 mg Documented By: NR Hydralazine HCl (Hydralazine 20 Mg/Ml Vial) 10 mg IV NOW ONE Stop: 01/25/23 17:55 Last Admin: 01/25/23 18:13 Dose: Not Given Documented By: NR Losartan Potassium (Losartan 50 Mg Tablet) 100 mg PO NOW ONE Stop: 01/25/23 17:58 Last Admin: 01/25/23 18:13 Dose: Not Given Documented By: NR Reevaluation(s) Reevaluation #1: patient continues to be asymptomatic, BP is dropping down without intervention, now in the 190s Consultations Consultation #1: discussed with PCP (Melo) wishes us to start Norvasc 5mg, will follow closely in the office this week Time: 18:25 Vital Signs Vital signs: Vital Signs - 8 hr 01/25/23 17:09 01/25/23 17:50 01/25/23 17:51 Temperature 97.1 F L Pulse Rate 77 87 Respiratory Rate 16 Blood Pressure 232/102 H 201/94 H Pulse Oximetry 99 93 Oxygen Delivery Method Room Air 01/25/23 17:51 01/25/23 18:00 01/25/23 18:00 Temperature Pulse Rate 83 67 Respiratory Rate Blood Pressure 195/92 H Pulse Oximetry 92 96 Oxygen Delivery Method 01/25/23 18:30 01/25/23 18:30 Temperature Pulse Rate 64 Respiratory Rate Blood Pressure 173/89 H Pulse Oximetry 96 Oxygen Delivery Method Medical Decision Making Lab Data 01/25/23 17:23 01/25/23 17:23 Labs: Lab Results 03/11/23 03/11/23 03/11/23 Range/Units 17:23 17:23 17:23 WBC 8.3 (4.5-11.0) X10^3/uL RBC 4.58 (4.5-5.9) X10^6/uL Hgb 13.0 L (13.5-17.5) g/dL Hct 38.9 L (41-53) % MCV 84.9 (80-100) fL MCH 28.4 (26-34) PG MCHC 33.5 (30-36) % RDW 13.9 (11.6-14.8) % Plt Count 179 (150-400) X10^3/uL Neut % (Auto) 75.6 H (50-75) % Lymph % (Auto) 14.9 L (25-40) % [place] % (Auto) 6.5 (3-14) % Eos % (Auto) 2.3 (2-4) % Baso % (Auto) 0.7 (0-2) % Neut # (Auto) 6300 (4269-2435) /uL Lymph # (Auto) 1200 (9337-0065) /uL [place] # (Auto) 500 (0-900) /uL Eos # (Auto) 200 (0-450) /uL Baso # (Auto) 100 (0-100) /uL PT 12.4 (10.1-12.7) SECONDS INR 1.1 (0.9-1.3) APTT 32 (26-36) SECONDS Sodium 134 L (137-145) mmol/L Potassium 4.5 (3.4-5.1) mmol/L Chloride 98 (98-107) mmol/L Carbon Dioxide 25 (22-32) mmol/L BUN 14 (9-20) mg/dL Creatinine 0.95 (0.66-1.25) mg/dL Estimated GFR > 60 (>60) mL/min BUN/Creatinine Ratio 14.7 (6-22) Glucose 216 H (80-110) mg/dL Calcium 9.2 (8.4-10.2) mg/dL Magnesium 1.7 (1.6-2.3) mg/dL Total Bilirubin 0.7 (0.2-1.3) mg/dL AST 27 (17-59) IU/L ALT 23 (<50) IU/L Alkaline Phosphatase 63 (38-126) U/L Total Creatine Kinase 102 (55-170) U/L CK-MB (CK-2) 2.44 H (<2.37) ng/mL CK-MB (CK-2) Rel Index 2.4 (1.5-5.0) % Troponin I < 0.012 (0.01-0.034) ng/mL NT-Pro-B Natriuret Pep (<450) pg/mL Total Protein 7.6 (6.3-8.2) g/dL Albumin 4.3 (3.5-5.0) g/dL Globulin 3.3 (1.7-4.1) g/dL Albumin/Globulin Ratio 1.3 (1.0-2.8) Lipase 71 (23-300) U/L 01/25/23 Range/Units 17:23 WBC (4.5-11.0) X10^3/uL RBC (4.5-5.9) X10^6/uL Hgb (13.5-17.5) g/dL Hct (41-53) % MCV (80-100) fL MCH (26-34) PG MCHC (30-36) % RDW (11.6-14.8) % Plt Count (150-400) X10^3/uL Neut % (Auto) (50-75) % Lymph % (Auto) (25-40) % [place] % (Auto) (3-14) % Eos % (Auto) (2-4) % Baso % (Auto) (0-2) % Neut # (Auto) (4324-4725) /uL Lymph # (Auto) (4066-3865) /uL [place] # (Auto) (0-900) /uL Eos # (Auto) (0-450) /uL Baso # (Auto) (0-100) /uL PT (10.1-12.7) SECONDS INR (0.9-1.3) APTT (26-36) SECONDS Sodium (137-145) mmol/L Potassium (3.4-5.1) mmol/L Chloride (98-107) mmol/L Carbon Dioxide (22-32) mmol/L BUN (9-20) mg/dL Creatinine (0.66-1.25) mg/dL Estimated GFR (>60) mL/min BUN/Creatinine Ratio (6-22) Glucose (80-110) mg/dL Calcium (8.4-10.2) mg/dL Magnesium (1.6-2.3) mg/dL Total Bilirubin (0.2-1.3) mg/dL AST (17-59) IU/L ALT (<50) IU/L Alkaline Phosphatase (38-126) U/L Total Creatine Kinase (55-170) U/L CK-MB (CK-2) (<2.37) ng/mL CK-MB (CK-2) Rel Index (1.5-5.0) % Troponin I (0.01-0.034) ng/mL NT-Pro-B Natriuret Pep 855 H (<450) pg/mL Total Protein (6.3-8.2) g/dL Albumin (3.5-5.0) g/dL Globulin (1.7-4.1) g/dL Albumin/Globulin Ratio (1.0-2.8) Lipase (23-300) U/L Urine Dip Bedside Urine Glucose 250 mg/dl Bedside Urine Bilirubin - Negative Bedside Urine Ketone - Negative Urine Specific [place] 1.01 Bedside Urine Occult Blood - Negative Bedside Urine pH 6.5 Bedside Urine Protein - Negative Bedside Urine Urobilinogen - Negative Bedside Urine Nitrite - Negative Bedside Urine Leukocytes - Negative Esterase Point of care testing: Urine Dip Bedside Urine Glucose 250 mg/dl Bedside Urine Bilirubin - Negative Bedside Urine Ketone - Negative Urine Specific [place] 1.01 Bedside Urine Occult Blood - Negative Bedside Urine pH 6.5 Bedside Urine Protein - Negative Bedside Urine Urobilinogen - Negative Bedside Urine Nitrite - Negative Bedside Urine Leukocytes - Negative Esterase Imaging Data Chest x-ray: Radiologist's Impression: NAP MDM Narrative Medical decision making narrative: [82] year old patient presents with asymptomatic HTN Multiple etiologies for patient's symptoms considered including, but not limited to: [medical non-compliance, vs. other] Prior Charts reviewed in our EMR Primary Historian: patient Labs reviewed and interpreted by myself: No significant abnormalities requiring a specific intervention Imaging reviewed: MELISSA Consultations: Melo (see above) Findings and discharge diagnosis discussed with patient/family followed by verbalization of understanding Return precautions discussed with patient/family whom verbalize understanding of diagnosis and plan Discharge Plan Departure Patient Disposition: Home Clinical Impression: Essential hypertension Instructions: DI for High Blood Pressure Activity Restrictions/Additional Instructions: *You have been diagnosed with [asymptomatic hypertension in the absence of any lab abnormalities] *What to do: *Please continue to take your regular medications as directed. [x ] New medication prescriptions sent to your pharmacy: [ [facility]] [ ] New medication written as a paper prescription [ ] No new medications given *Please follow up with your primary care provider in 2-3 days, call for an appointment. Let them know you were seen in the Emergency Department and that we ask that you be seen in follow up. We will electronically transmit a record of today's note if your PCP is in our system *If you do not have a primary care provider please contact the [facility] Resource line at [phone]. They will ask some questions about your medical history and help get you set up with a doctor in the community. *Return to Emergency Department if you should have any new, worsening or concerning symptoms, such as [fever greater than 101 F, shaking chills, worsening pain, persistent vomiting or other bothersome symptoms] Prescriptions: New amlodipine [Norvasc] 5 mg tablet 5 mg PO DAILY Qty: 14 0RF No Action metformin 500 mg Tablet 500 mg PO BID glyburide 2.5 mg Tablet 2.5 mg PO QAM tamsulosin 0.4 mg Capsule 0.8 mg PO QPM fluoxetine 10 mg capsule 10 mg PO QPM Patient Comments: TAKE ONE CAPSULE BY MOUTH ONE TIME DAILY gabapentin 300 mg capsule 600 mg PO BEDTIME Patient Comments: TAKE 2 CAPSULES BY MOUTH EVERY NIGHT metoprolol tartrate 25 mg tablet See Rx Instructions .ROUTE .COMPLEX Rx Instructions: TAKE TWO TABLETS BY MOUTH IN THE MORNING AND ONE IN THE P.M. aspirin 81 mg Capsule 81 mg PO QAM atorvastatin 10 mg tablet 10 mg PO DAILY ketoconazole 2 % cream 1 applic topical DAILY Referrals: Liu Alejo MD [Primary Care Provider] - Stand Alone Forms: Patient Portal/API
--- NOTE | 2023-01-25 17:25 | DI.RAD.S_ITS ---
PROCEDURE: XR CHEST 1V INDICATIONS: chest pain TECHNIQUE: One view of the chest was acquired. COMPARISON: [facility], , XR CHEST 2V, 11/26/2021, 15:48. FINDINGS: Surgical changes and devices: None. Lungs and pleura: Left basilar opacity consistent with infiltrate and pleural effusion is similar to the prior study on 11/26/2021. No pneumothorax. Mediastinum: Mediastinal contours appear normal. Heart size is normal. Bones and chest wall: No suspicious bony lesions. Overlying soft tissues appear unremarkable. IMPRESSION: Stable chest x-ray compared to 11/26/2021 with left basilar opacity which is unchanged. Dictated by: Agusto Parker M.D. on 01/25/2023 at 17:50 Approved by: Agusto Parker M.D. on 01/25/2023 at 17:52
--- NOTE | 2023-01-25 17:40 | PC.NURSE ---
Pt c/o HTN 230s/ systolic which he noticed 2-3 weeks ago at an eye exam appt. Pt f/u'd with PCP who increased his metoprolol dose to 75mg BID. Pt is completely asymptomatic and AAOx3.
[2023-01-25 17:42] LABS: Add Manual Diff / Slide Review NO; Basophils Absolute Auto 100 /uL (0-100); Basophils Percent Auto 0.7 % (0-2); Eosinophils Absolute Auto 200 /uL (0-450); Eosinophils Percent Auto 2.3 % (2-4); Hematocrit 38.9 % (41-53); Lymphocytes Absolute Auto 1200 /uL (1100-4500); Lymphocytes Percent Auto 14.9 % (25-40); Mean Corpuscular HGB Conc 33.5 % (30-36); Mean Corpuscular Hemoglobin 28.4 PG (26-34); Mean Corpuscular Volume 84.9 fL (80-100); Monocytes Absolute Auto 500 /uL (0-900); Monocytes Percent Auto 6.5 % (3-14); Neutrophils Absolute Auto 6300 /uL (1500-7000); Neutrophils Percent Auto 75.6 % (50-75); Platelet Count 179 X10^3/uL (150-400); Red Blood Cell Count 4.58 X10^6/uL (4.5-5.9); Red Cell Distribution Width 13.9 % (11.6-14.8); White Blood Cell Count 8.3 X10^3/uL (4.5-11.0)
[2023-01-25 17:50] VITALS: PULSE 87; O2SAT 93
[2023-01-25 17:51] VITALS: BP 201/94; PULSE 83; O2SAT 92
[2023-01-25 17:51] LABS: INR 1.1 (0.9-1.3); Prothrombin Time 12.4 SECONDS (10.1-12.7)
[2023-01-25 17:53] LABS: PTT Partial Thromboplastin Tim 32 SECONDS (26-36)
[2023-01-25 17:55] LABS: Alanine Aminotransferase 23 IU/L (<50); Albumin 4.3 g/dL (3.5-5.0); Albumin Globulin Ratio 1.3 (1.0-2.8); Alkaline Phosphatase 63 U/L (38-126); Aspartate Aminotransferase 27 IU/L (17-59); BUN Creatinine Ratio 14.7 (6-22); Bilirubin Total 0.7 mg/dL (0.2-1.3); Blood Urea Nitrogen 14 mg/dL (9-20); Calcium 9.2 mg/dL (8.4-10.2); Carbon Dioxide 25 mmol/L (22-32); Chloride 98 mmol/L (98-107); Creatine Kinase 102 U/L (55-170); Estimated Glomerular Filt Rate > 60 mL/min (>60); Globulin 3.3 g/dL (1.7-4.1); Glucose 216 mg/dL (80-110); HEMOLYSIS < 15 (0-50); Lipase 71 U/L (23-300); Magnesium 1.7 mg/dL (1.6-2.3); Potassium 4.5 mmol/L (3.4-5.1); Sodium 134 mmol/L (137-145); Total Protein 7.6 g/dL (6.3-8.2)
[2023-01-25 18:00] VITALS: BP 195/92; PULSE 67; O2SAT 96
[2023-01-25 18:04] LABS: NT-proBNP (BNP-Adult 18+) 855 pg/mL (<450)
[2023-01-25 18:06] LABS: Troponin I < 0.012 ng/mL (0.01-0.034)
[2023-01-25 18:10] LABS: CKMB % Relative Index 2.4 % (1.5-5.0); Creatine Kinase MB 2.44 ng/mL (<2.37)
[2023-01-25] MEDS: AMLODIPINE 5 MG TABLET PO (18:16)
[2023-01-25 18:30] VITALS: BP 173/89; PULSE 64; O2SAT 96
== END 2023-01-25 18:41 | disposition home or self-care (01) ==
PROVIDERS: Emergency Provider Emergency Medicine; PCP Family Medicine
DX: I10 Essential (primary) hypertension (principal); R07.9 Chest pain, unspecified; Z79.899 Other long term (current) drug therapy
CPT/HCPCS: 36415; 71045; 80053; 81003; 82550; 82553; 83690; 83735; 83880; 84484; 85025; 85610; 85730; 93005; 93010; 99284

== ENCOUNTER 2023-08-02 14:00 | Emergency (ER) | payer MEDICARE, SELFPAY ==
[2021-11-27 20:25] VITALS: BMI 27.2
[2023-08-02 14:05] VITALS: BP 190/85; PULSE 75; RESP 20; TEMP 36.3; O2SAT 100; BMI 27.8
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
[2023-08-02] MEDS: LIDOCAINE 1% 20 ML INJ (14:58)
[2023-08-02 15:05] VITALS: BP 166/78; PULSE 80; RESP 16; O2SAT 99
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
--- NOTE | 2023-08-02 16:05 | PC.NURSE ---
1538 wound cleaning and irrigation performed with NS and betadine solution. Pt tolerated well without complication. 1605 vasaline gauze & 4x4 gauze applied directly to wound and wrapped with kerlix. volar splint & shoulder immobilizer/sling applied for comfort.
[2023-08-02 16:08] VITALS: BP 167/97; PULSE 84; RESP 16; O2SAT 99
== END 2023-08-02 16:20 | disposition home or self-care (01) ==
PROVIDERS: Emergency Provider Emergency Medicine; PCP Family Medicine; Referring Provider Emergency Medicine
DX: S62.303A Unspecified fracture of third metacarpal bone, left hand, initial encounter for closed fracture (principal); W34.00XA Accidental discharge from unspecified firearms or gun, initial encounter
CPT/HCPCS: 29125; 73130; 99283; 99284

== ENCOUNTER 2023-09-29 10:22 | Day surgery (SDC) | payer MEDICARE, SELFPAY ==
[2021-11-27 20:25] VITALS: BMI 27.2
--- NOTE | 2023-09-29 | PATH_ITS ---
[facility] Accession Number: [id number] No. of containers..01 Tissue . 01 Material submitted: . colon - DESCENDING POLYP . 01 Diagnosis: Descending Colon Polyp: Hyperplastic polyp. [facility] 10/08/2023 1146 Local . 01 Electronically signed: . Jaziel Esqueda MD, PhD, Pathologist NPI- [id number] . 01 Gross description: . DESCENDING POLYP: Received in formalin is 1 fragment(s) of to, soft tissue measuring 0.4 x 0.3 x 0.3 cm submitted entirely in 1 cassette(s) /MELONY 09/30/2023 1905 Local . 01 Pathologist provided ICD-10: K63.5 . 01 CPT . 404341 Specimen Comment: A courtesy copy of this report has been sent to [phone] Performed at: 01 [facility] [address] [place] [address] [id number] MD Griffin Gordon MD Phone: [phone]
[2023-09-29 10:41] VITALS: BP 175/96; PULSE 82; RESP 16; TEMP 36.2; O2SAT 96; BMI 27.4
[2023-09-29] MEDS: LACTATED RINGERS 1,000 ML 150 ML IV (11:12)
--- NOTE | 2023-09-29 12:00 | PM.HP.1 ---
History of Present Illness History of Present Illness Date Patient Seen: 09/29/23 Time Patient Seen: 12:00 Chief complaint: Colonoscopy Narrative: Here for colonoscopy. Positive fecal occult blood test. Otherwise no symptoms. I reviewed the recent office note from Dr. [facility] Medical History Bladder outlet obstruction History of tobacco use Mixed hyperlipidemia BPH w urinary obs/LUTS Essential hypertension Skin cancer BPH (benign prostatic hyperplasia) Hypertension Hyperlipidemia Diabetes Surgical History H/O cataract removal with insertion of prosthetic lens No pertinent past surgical history Social History marital status: number of children: 2 household members: spouse Smoking Status: Former smoker alcohol intake: never Meds Home Medications and Allergies Home Medications Medication Instructions Recorded Confirmed Type glyburide 2.5 mg tablet 2.5 mg PO QAM 04/09/19 09/29/23 History metformin 500 mg tablet 500 mg PO BID 04/09/19 09/29/23 History tamsulosin 0.4 mg capsule 0.8 mg PO QPM 04/09/19 09/29/23 History aspirin 81 mg capsule 81 mg PO QAM 11/27/21 09/29/23 History fluoxetine 10 mg capsule 10 mg PO QPM 11/27/21 09/29/23 History gabapentin 300 mg capsule 600 mg PO BEDTIME 11/27/21 09/29/23 History metoprolol tartrate 25 mg tablet See Rx Instructions .Route .COMPLEX 11/27/21 09/29/23 History atorvastatin 10 mg tablet 10 mg PO DAILY 11/28/22 09/29/23 History ketoconazole 2 % topical cream 1 applic topical DAILY 11/28/22 09/29/23 History amlodipine 5 mg tablet (Norvasc) 5 mg PO DAILY #14 tabs 01/25/23 09/29/23 Rx Allergies Allergy/AdvReac Type Severity Reaction Status Date / Time ibuprofen Allergy Unknown Verified 02/27/23 09:06 Review of Systems Review of Systems ROS: Yes All systems reviewed with the patient and are negative except as otherwise documented Exam Vital Signs (past 8 hours): - 09/29/23 10:41 Temperature 97.2 F L Pulse Rate 82 Respiratory Rate 16 Blood Pressure 175/96 H Pulse Oximetry 96 Oxygen Delivery Method Room Air Oxygen Delivery Method Room Air Const General: cooperative HENMT Head: normal to inspection Eyes General: appearance normal, both eyes and all related structures Neck Neck: normal visual inspection Chest Chest: normal inspection of the chest Resp Effort & Inspection: normal respiratory effort Cardio Rate: regular rate GI Inspection: normal to inspection Skin General: no rashes or lesions noted Neuro General: patient alert and patient awake Extrem General: normal to inspection and no pedal edema Psych Appearance: grossly normal Assessment & Plan Assessment & Plan narrative: 83-year-old male with positive fecal occult blood test. Colonoscopy is pursued today.
--- NOTE | 2023-09-29 12:01 | PM.PREOP ---
Pre-operative Note Interval Note History & Physical reviewed/Exam performed by Physician: Yes Changes to H&P: No ASA Class (for procedural sedation): III
--- NOTE | 2023-09-29 12:55 | PM.OP.COLON ---
Operative Date/Time/Diagnoses Date of procedure: 09/29/23 Time of procedure: 12:55 Pre-op diagnosis: Fecal occult blood positive Post-op diagnosis: same Procedure & Clinicians Study performed: Colonoscopy with cold snare polypectomy Same procedure as scheduled: Yes Indications: Fecal occult blood positive Surgeon: Tutu Mittal Procedure Notes SCOAP/Timeout: Done Procedure in detail: After the risks and benefits were explained, written and verbal informed consent was obtained. The patient was brought into the procedure room and placed into the left lateral decubitus position. Please see anesthesia notes for sedation details. Digital rectal examination was accomplished. The scope was introduced into the patient and advanced under direct visualization to the cecum as identified by the appendiceal orifice and ileocecal valve. The scope was slowly withdrawn to carefully examine the mucosa for any defects or lesions. Comprehensive imaging was accomplished throughout the rectum including the dentate line. The colon was decompressed, the scope was then removed from the patient who tolerated the procedure well. Adult colonoscope Bowel prep adequate Scope withdrawal time: 12 minutes Sedation minutes: 20 Complications: none Impression: Grade 2 internal hemorrhoids with some superficial vascularity were noted. No signs of colitis or proctitis. No mass lesions. There was a small 5 mm polyp in the descending removed with cold snare. Otherwise there were a few diminutive classic hyperplastic appearing polyps in the rectosigmoid that were left alone. Endoscopic diagnosis 1. Grade 2 hemorrhoids 2. Diminutive colon polyp Post-procedure Plan for aftercare: 1. Await histopathology. 2. Continue to follow-up in primary care as before. Disposition: PACU
[2023-09-29 12:56] VITALS: BP 100/70; PULSE 76; RESP 12; TEMP 36.1; O2SAT 97
[2023-09-29 13:01] VITALS: BP 130/75; PULSE 83; RESP 16; O2SAT 97
[2023-09-29 13:06] VITALS: BP 119/76; PULSE 82; RESP 24; O2SAT 98
[2023-09-29 13:13] VITALS: BP 131/71; PULSE 70; RESP 13; TEMP 36.7; O2SAT 98
== END 2023-09-29 13:25 | disposition home or self-care (01) ==
PROVIDERS: PCP Family Medicine; Referring Provider Internal Medicine Gastroenterology; Visit Provider Internal Medicine Gastroenterology
PROC: 0DJD8ZZ Inspection of Lower Intestinal Tract, Via Natural or Artificial Opening Endoscopic (ICD-10-PCS; CPT 45378; principal; 2023-09-29 11:30)
DX: Z12.11 Encounter for screening for malignant neoplasm of colon (principal); R19.5 Other fecal abnormalities; K64.1 Second degree hemorrhoids; K63.5 Polyp of colon
CPT/HCPCS: 45385; J2704

== ENCOUNTER → 2025-10-07 16:27 | Outpatient (CLI) | payer MEDICARE, SELFPAY ==
[2021-11-27 20:25] VITALS: BMI 27.2
--- NOTE | 2025-10-07 16:32 | DI.RAD.S_ITS ---
PROCEDURE: XR THORACIC SPINE 3V INDICATIONS: FALL TECHNIQUE: 3 views of the thoracic spine were acquired. COMPARISON: (Prior imaging is not available for review from the archive at the time of this dictation.) FINDINGS: Bones: No fractures or dislocations. No suspicious bony lesions. 12 pairs of ribs are noted, and appear intact where visualized. Mild dextroconvex scoliotic curvature is seen. Accentuated thoracic kyphosis is seen. Multiple levels of bridging syndesmophytes can be seen. Several levels of mild disc space narrowing can be seen, with associated endplate irregularity. Soft tissues: No paravertebral stripe thickening. There is calcification seen involving the left aspect of the heart, which is most likely related to mitral valve annulus calcification. IMPRESSION: No acute bony abnormality is seen on these plain films. Significant underlying degenerative changes are seen. If clinically appropriate, please consider follow-up CT versus MRI, depending upon clinical suspicion. Dictated by: Saul Cummings M.D. on 10/08/2025 at 20:02 Approved by: Saul Cummings M.D. on 10/08/2025 at 20:04
== END ==
LOC: RAD 16:31
PROVIDERS: PCP Family Medicine; Referring Provider Family Medicine; Visit Provider Family Medicine
DX: M40.294 Other kyphosis, thoracic region (principal); M54.6 Pain in thoracic spine; R07.89 Other chest pain; W19.XXXA Unspecified fall, initial encounter
CPT/HCPCS: 72072